=== PATIENT | female | born 1935 | race Caucasian/White ===

== ENCOUNTER 2016-10-09 15:31 | Inpatient (IN) ==
[2016-10-09] MEDS ORDERED: TYLENOL PO PRN (15:52)
[2016-10-09] MEDS ORDERED: NITROSTAT SL PRN ×2 (15:52→16:15)
[2016-10-09] MEDS ORDERED: MORPHINE 4 MG/ML SYRINGE IVP PRN (15:52)
[2016-10-09] MEDS ORDERED: VISTARIL INJ IM PRN (15:52)
[2016-10-09] MEDS ORDERED: ATROPINE SULFATE PFS IVP PRN (15:52)
[2016-10-09 16:00] VITALS: BMI 31.6
[2016-10-09] MEDS ORDERED: NON-FORMULARY MEDICATION (Lansoprazole [Prevacid] 30 MG) PO PRN ×22 (16:15)
[2016-10-09] MEDS ORDERED: ANTIVERT PO PRN (16:15)
[2016-10-09] MEDS ORDERED: XANAX PO PRN (16:15)
[2016-10-09] MEDS ORDERED: DECADRON 4 MG/ML SDV IM STA (16:17)
[2016-10-09 16:30] LABS: BASOPHILS % (AUTO) 1.6 % (0.0-3.0); EOSINOPHILS % (AUTO) 1.2 % (0.0-7.0); LYMPHOCYTES # (AUTO) 0.8 K/uL (0.60-3.4); LYMPHOCYTES % (AUTO) 29.6 (10.0-50.0); MEAN CORPUSCULAR HEMOGLOBIN 31.3 pg (27.0-31.0); MEAN CORPUSCULAR HGB CONC 35.9 (31.8-35.4); MEAN CORPUSCULAR VOLUME 87.1 fl (81.0-99.0); MONOCYTES # (AUTO) 0.2 K/uL (0.4-2.0); MONOCYTES % (AUTO) 9.3 (0-10); NEUTROPHILS # (AUTO) 1.5 K/ul (2.0-6.9); NEUTROPHILS % (AUTO) 58.3; PLATELET COUNT 159 10^3/uL (140-440); RED BLOOD COUNT 4.48 10^6/ul (4.20-5.40); WHITE BLOOD COUNT 2.57 K/ul (4.6-10.2)
[2016-10-09] MEDS ORDERED: PROTONIX PO PRN (16:37)
--- NOTE | 2016-10-09 16:39 | DI ---
EXAM: Chest one view HISTORY: Febrile illness, evaluation COMPARISON: 04/09/2018 TECHNIQUE: Single view of the chest was performed FINDINGS: No airspace consolidation. Mild subsegmental atelectasis left lung base. There is no pl eural effusion or pneumothorax. The heart is normal in size. The mediastinal contour is normal, no ting atherosclerosis. There are no acute abnormalities of the bones. Surgical clips right axillary region. IMPRESSION: Mild subsegmental atelectasis left lung base. Otherwise, no acute cardiopulmonary proc ess.
[2016-10-09 16:44] LABS: ABG BASE EXCESS -3 (-2.0-2.0); ABG HCO3 21.4 (22.0-26.0); ABG PCO2 32.4 mmHg (35-45); ABG PH 7.428 (7.35-7.45); ABG TCO2 22 (22.0-28.0)
[2016-10-09] MEDS: DEXTROSE 5%-1/2NS IV SOLUTION 1,000 ML IV SCH (16:44)
[2016-10-09] MEDS: DOXYCYCLINE HYCLATE PO SCH ×2 (16:45→20:37)
[2016-10-09] MEDS ORDERED: COUMADIN PO ONE (17:00)
[2016-10-09 17:07] LABS: ALANINE AMINOTRANSFERASE 30 U/L (12-78); ALBUMIN 3.6 g/dL (3.4-5.0); ALBUMIN/GLOBULIN RATIO 0.92; ALKALINE PHOSPHATASE 71 U/L (53-141); ANION GAP 15.9; ASPARTATE AMINO TRANSFERASE 40 U/L (15-37); BILIRUBIN,TOTAL 0.51 mg/dL (0.00-1.20); BLOOD UREA NITROGEN 21 mg/dL (7-18); BUN/CREATININE RATIO 17.35; CALCIUM 8.7 mg/dL (8.2-10.2); CARBON DIOXIDE 23 mmol/L (23-31); CHLORIDE 100 mmol/L (98-107); CREATINE KINASE 98 U/L; CREATININE 1.21 mg/dL (0.60-1.30); GLUCOSE 96 mg/dL (82-115); MYOGLOBIN 59 ng/ml; POTASSIUM 3.9 mmol/L (3.5-5.10); SODIUM 135 mmol/L (136-145); TOTAL PROTEIN 7.5 g/dL (5.8-8.1)
[2016-10-09] MEDS: BETAPACE PO SCH (20:37)
[2016-10-09] MEDS: ZETIA PO SCH (20:37)
[2016-10-09 22:42] LABS: BILIRUBIN,URINE Negative (NEGATIVE); KETONES,URINE Negative (NEGATIVE); LEUKOCYTE ESTERASE ,URINE Trace (NEGATIVE); NITRITE,URINE Negative (NEGATIVE); PH,URINE 5.5 (5-9); PROTEIN,URINE Negative (NEGATIVE); URINE, BLOOD Trace-lysed (NEGATIVE)
[2016-10-09 22:43] LABS: ADD URINE MICROSCOPIC YES
[2016-10-10 01:04] LABS: PROTHROMBIN TIME 12.7 SEC (9.3-11.0)
[2016-10-10] MEDS: DEXTROSE 5%-1/2NS IV SOLUTION 1,000 ML IV SCH ×2 (01:18→09:25)
[2016-10-10 01:34] LABS: CREATINE KINASE 85 U/L; MYOGLOBIN 47 ng/ml
[2016-10-10] MEDS: SYNTHROID PO SCH (05:39)
[2016-10-10] MEDS ORDERED: ASPIRIN EC PO SCH (08:00)
[2016-10-10] MEDS ORDERED: DECADRON 4 MG/ML SDV IM STA (08:13)
[2016-10-10] MEDS: SODIUM CHLORIDE 1,000 ML IV SCH ×2 (08:40→23:35)
[2016-10-10] MEDS ORDERED: NON-FORMULARY MEDICATION (Benazepril Hcl [Lotensin] 40 MG) PO SCH ×22 (09:00)
[2016-10-10 09:04] LABS: BASOPHILS % (AUTO) 0.6 % (0.0-3.0); HEMATOCRIT 36.1 % (37.0-47.0); HEMOGLOBIN 12.9 g/dl (12.0-16.0); IMMATURE GRANULOCYTE % (AUTO) 0.3 % (0.0-5.0); LYMPHOCYTES # (AUTO) 0.9 K/uL (0.60-3.4); LYMPHOCYTES % (AUTO) 28.1 (10.0-50.0); MEAN CORPUSCULAR HEMOGLOBIN 30.7 pg (27.0-31.0); MEAN CORPUSCULAR HGB CONC 35.7 (31.8-35.4); MONOCYTES # (AUTO) 0.3 K/uL (0.4-2.0); MONOCYTES % (AUTO) 9.5 (0-10); NEUTROPHILS % (AUTO) 61.5; PLATELET COUNT 161 10^3/uL (140-440); WHITE BLOOD COUNT 3.17 K/ul (4.6-10.2)
[2016-10-10] MEDS: DOXYCYCLINE HYCLATE PO SCH ×2 (09:23→20:07)
[2016-10-10] MEDS: LOTENSIN PO SCH (09:24)
[2016-10-10] MEDS: BETAPACE PO SCH ×2 (09:24→20:06)
[2016-10-10] MEDS: NORVASC PO SCH (09:24)
[2016-10-10 09:28] LABS: ALBUMIN 3.3 g/dL (3.4-5.0); ALBUMIN/GLOBULIN RATIO 0.94; ANION GAP 12.9; BILIRUBIN,TOTAL 0.39 mg/dL (0.00-1.20); BUN/CREATININE RATIO 20.23; CALCIUM 8.3 mg/dL (8.2-10.2); CREATININE 0.84 mg/dL (0.60-1.30); POTASSIUM 3.9 mmol/L (3.5-5.10); TOTAL PROTEIN 6.8 g/dL (5.8-8.1)
--- NOTE | 2016-10-10 10:54 | PCM.PROG ---
Attending Provider: ATTENDING PROVIDER: Dr. RICARDO HENLEY DATE OF SERVICE: 10/10/16 SUBJECTIVE: This 80 year old WHITE/ F was hospitalized 10/09/16. The patient is admitted with febrile illness of four days duration with myalgias, arthralgias, weakness and sweating. The patient is feeling better. She slept well with no complaints of pain during the night. Still feels weak. Appetite is not too good. REVIEW OF SYSTEMS: CONSTITUTIONAL: Weakness and tiredness. No night sweats. No fever or chills. HEENT: Eyes: No visual changes. No eye pain. No eye discharge. ENT: No runny nose. No epistaxis. No sinus pain. No odynophagia. No congestion. RESPIRATORY: No cough, no congestion. No hemoptysis. CARDIOVASCULAR: No angina symptoms. No CHF symptoms. No symptoms of coronary insufficiency. No atypical chest pain for CAD. No palpitations. No shortness of breath. GASTROINTESTINAL: No abdominal pain. No nausea or vomiting. No diarrhea or constipation. No hematemesis. No hematochezia. GENITOURINARY: No urgency. No frequency. No dysuria. No hematuria. No obstructive symptoms. No discharge. No pain. No significant abnormal bleeding. MUSCULOSKELETAL: No arthralgias or myalgias. NEUROLOGICAL: Awake, alert, oriented to time, place and person. No headache. No neck pain. No syncope. No seizures. No dizziness. PSYCHIATRIC: Not anxious. No depression. No suicidal thoughts. No homicidal thoughts. SKIN: No rash. No lesions. No wounds. ENDOCRINE: No unexplained weight loss. No weight gain. HEMATOLOGIC/LYMPHATIC: No anemia. No purpura. No petechiae. No prolonged or excessive bleeding. No palpable lymph nodes. PHYSICAL EXAMINATION: GENERAL: The patient is awake, alert and oriented, lying in bed in no distress. VITAL SIGNS: Temperature 96.6 F, Pulse 57, Respiratory Rate 19, BP 116/67, Pulse Ox 97% HEENT: Head normocephalic, atraumatic. Eyes: Extraocular muscles are intact. Pupils are equal, round and reactive to light and accommodation. Ears: No lesions. Nose appeared normal. Throat: No exudate or erythema. NECK: Supple. No JVD, no carotid bruit. No lymphadenopathy or thyromegaly. LUNGS: Decreased breath sounds. Clear to auscultation. Percussion note normal. Chest symmetrical. HEART: S1, S2, no S3. No murmurs. No cyanosis or clubbing. No ascites. Pulses: Dorsalis pedis and posterior tibial pulses +1 to +2 both sides. ABDOMEN: Soft. Non-tender. Bowel sounds active. No CVA tenderness. No mass felt. EXTREMITIES: No pedal edema. Full range of motion of all extremities, equal. NEUROLOGIC: No focal deficit. Cranial nerves II through XII are grossly intact. No headache, no double vision or headache. SKIN: Not dry. Intact. Turgor-normal. LYMPHATIC: No palpable lymph nodes/no lymphedema. MUSCULOSKELETAL: Normal joints with no swelling. Muscle tone is normal. LAB REVIEW: 10/09/16 16:10 10/09/16 16:10 10/10/16 00:15: PT 12.7 H, INR 1.23, Total Creatine Kinase 85, Myoglobin 47, Troponin I < 0.0100 10/09/16 22:15: Urine Color Yellow, Urine Clarity Clear, Urine pH 5.5, Ur Specific [place] <=1.005, Urine Protein Negative, Urine Glucose (UA) Negative, Urine Ketones Negative, Urine Blood Trace-lysed, Urine Nitrite Negative, Urine Bilirubin Negative, Urine Urobilinogen 0.2, Ur Leukocyte Esterase Trace, Urine Microscopic RBC 2-5, Urine Microscopic WBC 0-2, Ur Squamous Epith Cells 2-5 10/09/16 16:10: WBC 2.57 L, RBC 4.48, Hgb 14.0, Hct 39.0, MCV 87.1, MCH 31.3 H, MCHC 35.9 H, RDW Coeff of [place]a 12.9, Plt Count 159, Immature Gran % (Auto) 0.0, Neut % (Auto) 58.3, Lymph % (Auto) 29.6, [place] % (Auto) 9.3, Eos % (Auto) 1.2, Baso % (Auto) 1.6, Immature Gran # (Auto) 0.0, Neut # 1.5 L, Lymph # 0.8, [place] # 0.2 L, Eos # 0.0, Baso # 0.0, Sodium 135 L, Potassium 3.9, Chloride 100, Carbon Dioxide 23, Anion Gap 15.9, BUN 21 H, Creatinine 1.21, Estimated GFR ( MDRD) 43.00, BUN/Creatinine Ratio 17.35, Glucose 96, Calcium 8.7, Total Bilirubin 0.51, AST 40 H, ALT 30, Alkaline Phosphatase 71, Total Creatine Kinase 98, Myoglobin 59, Troponin I < 0.0100, B-Natriuretic Peptide 45, Total Protein 7.5, Albumin 3.6, Globulin 3.9, Albumin/Globulin Ratio 0.92, TSH 0.880 10/09/16 16:09: Puncture Site Rb, O2 Saturation 92.0 L, ABG pH 7.428, ABG pCO2 32.4 L, ABG pO2 62.0 L, ABG HCO3 21.4 L, ABG Total CO2 22, ABG Base Excess -3 L , FiO2 % 21.0 EKG reveals sinus rhythm with no acute changes. ASSESSMENT: 1. Febrile illness with leukopenia could be viral syndrome 2. Dehydration 3. Generalized malaise 4. Cardiovascular status is stable. 5. History of CAD with stent 6. Hypertension 7. Dyslipidemia PLAN: 1. CBC, CMP daily 2. Encourage the patient to eat 3. Awaiting results of Ehrlichia, Lyme's, et cetera 4. Doxycycline p.o. 5. 1/2 cc Decadron for aches and pains 6. Change IV fluids (NS) to 75 cc/hr Plan and coordination of the patient's care discussed in the presence of Dealer Analyst and nurse. CONDITION: STABLE SCRIBED BY: BENNIE AVITIA Blasting Entryman scribed while in presence of service performed by Dr. RICARDO HENLEY on 10/10/16 ([id number])
--- NOTE | 2016-10-10 12:57 | HP ---
DATE OF SERVICE: 10/09/16 REASON FOR HOSPITALIZATION/HISTORY OF PRESENT ILLNESS: Achy/fever of 102 with no fever, loss of appetite, exhausted, joints hurt and lower back pain. No symptoms of CHF/CAD. REVIEW OF SYSTEMS: CONSTITUTIONAL: Fever and fatigue. HEENT: No sinus drainage, no sore throat. RESPIRATORY: No cough, no congestion. CARDIOVASCULAR: No atypical chest pain for coronary artery disease. No angina , CHF symptoms, palpitations. Shortness of breath. GASTROINTESTINAL: No melena or abdominal pain. No GERD. GENITOURINARY: No hematuria, no prostatism, no polyuria. MALT HOUSE OPERATOR: No blackout, Dizziness, no headache, no double vision. MUSCULOSKELETAL: Osteoarthritis pain, no joint swelling. ENDOCRINE: No weight loss, no weight gain. SKIN: Dry, no rash. No history of tick bite. PSYCHIATRIC: Anxious, no depression, no suicidal thoughts, no homicidal thoughts. SOCIAL HISTORY: Marital Status: . Alcohol Usage: No. Tobacco Usage: No. Family History: Father decreased age 80 CVA and hypertension, mother age 58 CVA, brother 5 and sister 2. SURGICAL HISTORY: Hysterectomy Thyroid Breast cancer right-mastectomy MEDICAL HISTORY: Cancer breast (RT) Coronary artery disease Atrial fibrillation Peripheral arterial disease Vitamin D deficiency Dyslipidemia Hypertension Decreased B12 level Osteoarthritis hip MEDICATIONS: Betapace 80mg twice a day Crestor 10mg PO bedtime Nitrostat 0.4mg SL as directed PRN Antivert 25gram PO three times a day PRN Synthroid 75mch PO daily Zetia 10mg PO bedtime Lotensin 40mg PO daily Amlodipine Besylate 5mg PO daily Xanax 0.25mg PO daily PRN Coumadin 2mg Po daily Prevacid 30mg PO daily PRN ALLERGIES: Vytorin Codeine PHYSICAL EXAMINATION: V/S: Pulse 80, blood pressure 130/78, temperature 98 and pulse ox 96%. GENERAL APPEARANCE: Oriented times three. Pallor positive. No rash. HEENT: Normal. NECK: No JVP, no bruits. No lymphadenopathy. RESPIRATORY: Lungs are clear. CARDIOVASCULAR: S1, S2, no S3, no murmurs. No cyanosis, clubbing. No ascites. GI/ABDOMEN: No tenderness. Bowel sounds are active. EXTREMITIES: edema, pulses +1, equal. MALT HOUSE OPERATOR: Deep tendon reflexes, sensory, motor and gait all normal. RECTAL: Refused. PELVIC: History cancer right breast 4-15 [facility] with ultrasound LABS: INR 1.3 on 2mg daily ASSESSMENT: 1. Febrile illness/ dehydration 2. Arthritis/myalgia/ fatigue 3. Chest twinges 4. Coronary artery disease 5. Atrial Fibrillation 6. History of cancer right breast 1988 7. Peripheral arterial disease 8. Vitamin D deficiency 9. Dyslipidemia 10.Hypertension 11.Osteoarthritis hip 12.Decreased B12 13.CAD 99 PLAN: 1. Admit regular 2. Routine Telemetry orders 3. 1000cc D5 1/2 normal saline 8 hourly 4. U/A and culture and sensitivity/ T4 TSH RICHARD 5. Blood cultures times 2 6. Ehrlichia titers 7. Continue all home medications 8. Discontinue Crestor/ oxygen 2 liters nasal cannula 9. Daily INR/Coumadin 4mg PO today 10.Daily Coumadin 2mg PO 11.ABG today 12. BNP, Sed rate today 13. Doxycycline 100mg PO twice a day and one now 14. Lyme screening 15. 1/2 cc Decadron IM today. TIME SPENT: More than 70 minutes. MTDD
[2016-10-10] MEDS: COUMADIN PO SCH (16:48)
[2016-10-10] MEDS ORDERED: COUMADIN PO SCH (17:00)
[2016-10-10] MEDS: ZETIA PO SCH (20:06)
[2016-10-11 04:42] LABS: BASOPHILS % (AUTO) 0.6 % (0.0-3.0); EOSINOPHILS % (AUTO) 0.2 % (0.0-7.0); HEMATOCRIT 33.2 % (37.0-47.0); HEMOGLOBIN 11.6 g/dl (12.0-16.0); IMMATURE GRANULOCYTE % (AUTO) 0.2 % (0.0-5.0); LYMPHOCYTES # (AUTO) 1.5 K/uL (0.60-3.4); LYMPHOCYTES % (AUTO) 29.9 (10.0-50.0); MEAN CORPUSCULAR HEMOGLOBIN 30.8 pg (27.0-31.0); MEAN CORPUSCULAR HGB CONC 34.9 (31.8-35.4); MEAN CORPUSCULAR VOLUME 88.1 fl (81.0-99.0); MONOCYTES # (AUTO) 0.6 K/uL (0.4-2.0); MONOCYTES % (AUTO) 10.7 (0-10); NEUTROPHILS % (AUTO) 58.4; PLATELET COUNT 175 10^3/uL (140-440); RED BLOOD COUNT 3.77 10^6/ul (4.20-5.40); WHITE BLOOD COUNT 5.15 K/ul (4.6-10.2)
[2016-10-11 04:54] LABS: PROTHROMBIN TIME 18.1 SEC (9.3-11.0)
[2016-10-11 05:02] LABS: ALBUMIN 3.1 g/dL (3.4-5.0); ALBUMIN/GLOBULIN RATIO 0.97; ANION GAP 15.8; BILIRUBIN,TOTAL 0.32 mg/dL (0.00-1.20); BUN/CREATININE RATIO 20.23; CREATININE 0.84 mg/dL (0.60-1.30); POTASSIUM 3.8 mmol/L (3.5-5.10); TOTAL PROTEIN 6.3 g/dL (5.8-8.1)
[2016-10-11] MEDS: SYNTHROID PO SCH (05:38)
[2016-10-11] MEDS ORDERED: DECADRON 4 MG/ML SDV IM STA (08:21)
[2016-10-11] MEDS: DOXYCYCLINE HYCLATE PO SCH ×2 (08:41→20:50)
[2016-10-11] MEDS: NORVASC PO SCH (08:41)
[2016-10-11] MEDS: BETAPACE PO SCH ×2 (08:42→20:50)
[2016-10-11] MEDS: LOTENSIN PO SCH (08:42)
--- NOTE | 2016-10-11 09:40 | PCM.PROG ---
Attending Provider: ATTENDING PROVIDER: Dr. RICARDO HENLEY DATE OF SERVICE: 10/11/16 SUBJECTIVE: This 80 year old WHITE/ F was hospitalized 10/09/16. The patient is hospitalized with febrile illness/dehydration. Her condition has steadily improved. Appetite is not so good so far. No nausea, no vomiting. No abdominal pain. No symptoms of CHF or coronary insufficiency. Telemetry shows no sinus arrhythmia. No evidence of acute myocardial event. REVIEW OF SYSTEMS: CONSTITUTIONAL: No night sweats. No fatigue, malaise, lethargy. No fever or chills. HEENT: Eyes: No visual changes. No eye pain. No eye discharge. ENT: No runny nose. No epistaxis. No sinus pain. No odynophagia. No congestion. RESPIRATORY: No cough, no congestion. No hemoptysis. CARDIOVASCULAR: No angina symptoms. No CHF symptoms. No atypical chest pain for CAD. No palpitations. No shortness of breath. GASTROINTESTINAL: Appetite is not that good. No abdominal pain. No nausea or vomiting. No diarrhea or constipation. No hematemesis. No hematochezia. GENITOURINARY: No urgency. No frequency. No dysuria. No hematuria. No obstructive symptoms. No discharge. No pain. No significant abnormal bleeding. MUSCULOSKELETAL: No musculoskeletal pain; no joint swelling. NEUROLOGICAL: Awake, alert, oriented to time, place and person. No headache. No neck pain. No syncope. No seizures. No dizziness. PSYCHIATRIC: Not anxious. No depression. No suicidal thoughts. No homicidal thoughts. SKIN: No rash. No lesions. No wounds. ENDOCRINE: No unexplained weight loss. No weight gain. HEMATOLOGIC/LYMPHATIC: No anemia. No purpura. No petechiae. No prolonged or excessive bleeding. No palpable lymph nodes. PHYSICAL EXAMINATION: GENERAL: The patient is awake, alert and oriented, lying/sitting in bed in no distress. VITAL SIGNS: Temperature 97.7 F, Pulse 60, Respiratory Rate 18, BP 139/77, Pulse Ox 95% HEENT: Head normocephalic, atraumatic. Eyes: Extraocular muscles are intact. Pupils are equal, round and reactive to light and accommodation. Ears: No lesions. Nose appeared normal. Throat: No exudate or erythema. NECK: Supple. No JVD, no carotid bruit. No lymphadenopathy or thyromegaly. LUNGS: Clear to auscultation. Percussion note normal. Chest symmetrical. HEART: S1, S2, no S3. No murmurs. No cyanosis or clubbing. No ascites. Pulses: Dorsalis pedis and posterior tibial pulses +1 to +2 both sides. ABDOMEN: Soft. Non-tender. Bowel sounds active. No CVA tenderness. No mass felt. EXTREMITIES: No edema. Full range of motion of all extremities, equal. NEUROLOGIC: No focal deficit. Cranial nerves II through XII are grossly intact. No headache, no double vision or headache. SKIN: Not dry. Intact. Turgor-normal. LYMPHATIC: No palpable lymph nodes/no lymphedema. MUSCULOSKELETAL: Normal joints with no swelling. Muscle tone is normal. LAB REVIEW: 10/11/16 04:10 10/11/16 04:10 10/11/16 04:10: WBC 5.15, RBC 3.77 L, Hgb 11.6 L, Hct 33.2 L, MCV 88.1, MCH 30.8 , MCHC 34.9, RDW Coeff of [place] 13.0, Plt Count 175, Immature Gran % (Auto) 0.2, Neut % (Auto) 58.4, Lymph % (Auto) 29.9, [place] % (Auto) 10.7 H, Eos % (Auto) 0.2 , Baso % (Auto) 0.6, Immature Gran # (Auto) 0.0, Neut # 3.0, Lymph # 1.5, [place] # 0.6, Eos # 0.0, Baso # 0.0, PT 18.1 H D, INR 1.76, Sodium 140, Potassium 3.8, Chloride 107, Carbon Dioxide 21 L, Anion Gap 15.8, BUN 17, Creatinine 0.84, Estimated GFR (MDRD) 65.00, BUN/Creatinine Ratio 20.23, Glucose 91, Calcium 8.0 L, Total Bilirubin 0.32, AST 31, ALT 31, Alkaline Phosphatase 60, Total Protein 6.3, Albumin 3.1 L, Globulin 3.2, Albumin/Globulin Ratio 0.97 10/10/16 08:51: WBC 3.17 L, RBC 4.20, Hgb 12.9, Hct 36.1 L, MCV 86.0, MCH 30.7, MCHC 35.7 H, RDW Coeff of [place] 12.6, Plt Count 161, Immature Gran % (Auto) 0.3, Neut % (Auto) 61.5, Lymph % (Auto) 28.1, [place] % (Auto) 9.5, Eos % (Auto) 0.0, Baso % (Auto) 0.6, Immature Gran # (Auto) 0.0, Neut # 2.0, Lymph # 0.9, [place] # 0.3 L, Eos # 0.0, Baso # 0.0, Sodium 135 L, Potassium 3.9, Chloride 105, Carbon Dioxide 21 L, Anion Gap 12.9, BUN 17, Creatinine 0.84, Estimated GFR (MDRD) 65.00, BUN/Creatinine Ratio 20.23, Glucose 120 H, Calcium 8.3, Total Bilirubin 0.39, AST 31, ALT 31, Alkaline Phosphatase 62, Total Protein 6.8, Albumin 3.3 L , Globulin 3.5, Albumin/Globulin Ratio 0.94 10/09/16 16:10: Thyroxine (T4) 11.9 ASSESSMENT: 1. Febrile illness with leukopenia, could be viral syndrome resolved with dehydration 2. Dehydration 3. Generalized malaise 4. Cardiovascular status is stable. 5. History of CAD with stent 6. Hypertension 7. Dyslipidemia PLAN: 1. Discontinue IV fluids 2. Up and about 3. 1 cc Decadron 4. Carotid scan 5. D/C IV fluids 6. Encouraged to be up and about Plan and coordination of the patient's care discussed in the presence of Circuit Designer and nurse. CONDITION: Stable SCRIBED BY: BENNIE AVITIA, Fashion Editor scribed while in presence of service performed by Dr. RICARDO HENLEY on 10/11/16 ([id number])
--- NOTE | 2016-10-11 14:13 | US ---
EXAM: Bilateral carotid artery Doppler History: Weakness and dizziness. Technique: Multiple sonographic images through the bilateral internal carotid arteries were obtaine d. Color duplex Doppler was used to interrogate vascular flow. Findings: The right ICA peak systolic velocity is within normal limits measuring 60 cm/sec. The right ICA/cca PSV ratio is normal at 1.3. The right vertebral artery is patent and demonstrates antegrade flow. Sanchez scale images demonstrate mild to moderate plaque buildup within the right internal carotid art racheal. The left ICA peak systolic velocity is within normal limits measuring 90 cm/sec. The left ICA/cca P SV ratio is normal at 1.3. The left vertebral artery is patent and demonstrates antegrade flow. Gr ay scale images demonstrate mild to moderate plaque buildup within the left internal carotid artery Impression: No significant hemodynamic stenosis of the bilateral internal carotid arteries.
[2016-10-11] MEDS: COUMADIN PO SCH (16:25)
[2016-10-11 19:25] LABS: IGG P18 AB Absent (.); IGG P23 AB Absent (.); IGG P28 AB Absent (.); IGG P30 AB Absent (.); IGG P39 AB Absent (.); IGG P41 AB Present (.); IGG P45 AB Absent (.); IGG P58 AB Present (.); IGG P66 AB Absent (.); IGG P93 AB Absent (.); IGM P39 AB Present (.); IGM P41 AB Present (.)
[2016-10-11] MEDS: ZETIA PO SCH (20:50)
[2016-10-12 05:16] LABS: BASOPHILS % (AUTO) 0.3 % (0.0-3.0); HEMATOCRIT 32.7 % (37.0-47.0); HEMOGLOBIN 11.7 g/dl (12.0-16.0); IMMATURE GRANULOCYTE % (AUTO) 0.3 % (0.0-5.0); LYMPHOCYTES # (AUTO) 1.5 K/uL (0.60-3.4); LYMPHOCYTES % (AUTO) 24.2 (10.0-50.0); MEAN CORPUSCULAR HEMOGLOBIN 30.7 pg (27.0-31.0); MEAN CORPUSCULAR HGB CONC 35.8 (31.8-35.4); MEAN CORPUSCULAR VOLUME 85.8 fl (81.0-99.0); MONOCYTES # (AUTO) 0.6 K/uL (0.4-2.0); MONOCYTES % (AUTO) 9.3 (0-10); NEUTROPHILS # (AUTO) 4.1 K/ul (2.0-6.9); NEUTROPHILS % (AUTO) 65.9; PLATELET COUNT 192 10^3/uL (140-440); RED BLOOD COUNT 3.81 10^6/ul (4.20-5.40); WHITE BLOOD COUNT 6.23 K/ul (4.6-10.2)
[2016-10-12 05:30] LABS: PROTHROMBIN TIME 20.7 SEC (9.3-11.0)
[2016-10-12 05:34] LABS: ALBUMIN 3.2 g/dL (3.4-5.0); ALBUMIN/GLOBULIN RATIO 1.1; BILIRUBIN,TOTAL 0.36 mg/dL (0.00-1.20); CALCIUM 8.3 mg/dL (8.2-10.2); CREATININE 0.8 mg/dL (0.60-1.30); TOTAL PROTEIN 6.1 g/dL (5.8-8.1)
[2016-10-12] MEDS: SYNTHROID PO SCH (06:13)
[2016-10-12] MEDS: DOXYCYCLINE HYCLATE PO SCH ×2 (08:57→20:50)
[2016-10-12] MEDS: LOTENSIN PO SCH (08:57)
[2016-10-12] MEDS: NORVASC PO SCH (08:57)
[2016-10-12] MEDS: BETAPACE PO SCH ×2 (08:57→20:50)
[2016-10-12 09:49] LABS: LYME IGG WB INTERP Negative (.); LYME IGM WB INTERP Positive (.)
[2016-10-12] MEDS: COUMADIN PO SCH (17:00)
[2016-10-12] MEDS: ZETIA PO SCH (20:49)
[2016-10-13 04:57] LABS: BASOPHILS # (AUTO) 0.1 K/uL (0-0.2); EOSINOPHILS # (AUTO) 0.1 K/ul (0.0-0.7); EOSINOPHILS % (AUTO) 1.5 % (0.0-7.0); HEMATOCRIT 34.3 % (37.0-47.0); IMMATURE GRANULOCYTE % (AUTO) 0.3 % (0.0-5.0); LYMPHOCYTES # (AUTO) 2.8 K/uL (0.60-3.4); LYMPHOCYTES % (AUTO) 47.1 (10.0-50.0); MEAN CORPUSCULAR HEMOGLOBIN 30.3 pg (27.0-31.0); MEAN CORPUSCULAR VOLUME 86.6 fl (81.0-99.0); MONOCYTES # (AUTO) 0.7 K/uL (0.4-2.0); MONOCYTES % (AUTO) 10.9 (0-10); NEUTROPHILS # (AUTO) 2.3 K/ul (2.0-6.9); NEUTROPHILS % (AUTO) 39.2; PLATELET COUNT 224 10^3/uL (140-440); RED BLOOD COUNT 3.96 10^6/ul (4.20-5.40); WHITE BLOOD COUNT 5.94 K/ul (4.6-10.2)
[2016-10-13 05:12] LABS: PROTHROMBIN TIME 20.3 SEC (9.3-11.0)
[2016-10-13 05:18] LABS: ALBUMIN 2.9 g/dL (3.4-5.0); ALBUMIN/GLOBULIN RATIO 0.97; ANION GAP 13.1; BILIRUBIN,TOTAL 0.38 mg/dL (0.00-1.20); CALCIUM 8.1 mg/dL (8.2-10.2); POTASSIUM 4.1 mmol/L (3.5-5.10); TOTAL PROTEIN 5.9 g/dL (5.8-8.1)
[2016-10-13 05:19] LABS: BUN/CREATININE RATIO 24.09; CREATININE 0.83 mg/dL (0.60-1.30)
[2016-10-13] MEDS: SYNTHROID PO SCH (05:39)
[2016-10-13] MEDS ORDERED: DECADRON 4 MG/ML SDV IM STA (08:30)
[2016-10-13] MEDS: DOXYCYCLINE HYCLATE PO SCH ×2 (08:56→20:08)
[2016-10-13] MEDS: BETAPACE PO SCH ×2 (08:57→20:08)
[2016-10-13] MEDS: NORVASC PO SCH (08:57)
[2016-10-13] MEDS: LOTENSIN PO SCH (08:57)
[2016-10-13] MEDS: COUMADIN PO SCH (17:21)
[2016-10-13] MEDS: ZETIA PO SCH (20:08)
[2016-10-14 04:30] LABS: BASOPHILS % (AUTO) 0.2 % (0.0-3.0); EOSINOPHILS % (AUTO) 0.1 % (0.0-7.0); HEMATOCRIT 35.5 % (37.0-47.0); HEMOGLOBIN 12.6 g/dl (12.0-16.0); IMMATURE GRANULOCYTE % (AUTO) 0.7 % (0.0-5.0); LYMPHOCYTES # (AUTO) 1.8 K/uL (0.60-3.4); MEAN CORPUSCULAR HEMOGLOBIN 30.7 pg (27.0-31.0); MEAN CORPUSCULAR HGB CONC 35.5 (31.8-35.4); MEAN CORPUSCULAR VOLUME 86.4 fl (81.0-99.0); MONOCYTES # (AUTO) 0.6 K/uL (0.4-2.0); MONOCYTES % (AUTO) 5.7 (0-10); NEUTROPHILS # (AUTO) 8.2 K/ul (2.0-6.9); NEUTROPHILS % (AUTO) 76.3; PLATELET COUNT 278 10^3/uL (140-440); RED BLOOD COUNT 4.11 10^6/ul (4.20-5.40); WHITE BLOOD COUNT 10.74 K/ul (4.6-10.2)
[2016-10-14 04:51] LABS: PROTHROMBIN TIME 21.2 SEC (9.3-11.0)
[2016-10-14 04:55] LABS: ALBUMIN 3.3 g/dL (3.4-5.0); ALBUMIN/GLOBULIN RATIO 0.94; ANION GAP 15.3; BILIRUBIN,TOTAL 0.36 mg/dL (0.00-1.20); CALCIUM 8.6 mg/dL (8.2-10.2); CREATININE 0.96 mg/dL (0.60-1.30); POTASSIUM 4.3 mmol/L (3.5-5.10); TOTAL PROTEIN 6.8 g/dL (5.8-8.1)
[2016-10-14] MEDS: SYNTHROID PO SCH (05:43)
[2016-10-14] MEDS: BETAPACE PO SCH ×2 (08:39→20:04)
[2016-10-14] MEDS: LOTENSIN PO SCH (08:39)
[2016-10-14] MEDS: NORVASC PO SCH (08:39)
[2016-10-14] MEDS: DOXYCYCLINE HYCLATE PO SCH ×2 (08:39→20:03)
--- NOTE | 2016-10-14 10:38 | PCM.PROG ---
Attending Provider: ATTENDING PROVIDER: Dr. RICARDO HENLEY DATE OF SERVICE: 10/14/16 SUBJECTIVE: This 80 year old WHITE/ F was hospitalized 10/09/16. The patient was hospitalized with dehydration, febrile illness with mild myalgias and arthralgias. No rash. No lymphadenopathy. No fever, no chills. No headache. REVIEW OF SYSTEMS: CONSTITUTIONAL: No night sweats. No fatigue, malaise, lethargy. No fever or chills. HEENT: Eyes: No visual changes. No eye pain. No eye discharge. ENT: No runny nose. No epistaxis. No sinus pain. No odynophagia. No congestion. RESPIRATORY: No cough, no congestion. No hemoptysis. CARDIOVASCULAR: No angina symptoms. No CHF symptoms. No atypical chest pain for CAD. No palpitations. No shortness of breath. GASTROINTESTINAL: No abdominal pain. No nausea or vomiting. No diarrhea or constipation. No hematemesis. No hematochezia. GENITOURINARY: No urgency. No frequency. No dysuria. No hematuria. No obstructive symptoms. No discharge. No pain. No significant abnormal bleeding. MUSCULOSKELETAL: No musculoskeletal pain; no joint swelling. NEUROLOGICAL: Awake, alert, oriented to time, place and person. No headache. No neck pain. No syncope. No seizures. No dizziness. PSYCHIATRIC: Not anxious. No depression. No suicidal thoughts. No homicidal thoughts. SKIN: No rash. No lesions. No wounds. ENDOCRINE: No unexplained weight loss. No weight gain. HEMATOLOGIC/LYMPHATIC: No anemia. No purpura. No petechiae. No prolonged or excessive bleeding. No palpable lymph nodes. PHYSICAL EXAMINATION: GENERAL: The patient is awake, alert and oriented, lying in bed in no distress. VITAL SIGNS: Temperature 96.1 F, Pulse 82, Respiratory Rate 18, BP 139/76, Pulse Ox 97% HEENT: Head normocephalic, atraumatic. Eyes: Extraocular muscles are intact. Pupils are equal, round and reactive to light and accommodation. Ears: No lesions. Nose appeared normal. Throat: No exudate or erythema. NECK: Supple. No JVD, no carotid bruit. No lymphadenopathy or thyromegaly. LUNGS: Decreased breath sounds. Clear to auscultation. Percussion note normal. Chest symmetrical. HEART: S1, S2, no S3. No murmurs. No cyanosis or clubbing. No ascites. Pulses: Dorsalis pedis and posterior tibial pulses +1 to +2 both sides. ABDOMEN: Soft. Non-tender. Bowel sounds active. No CVA tenderness. No mass felt. EXTREMITIES: No edema. Full range of motion of all extremities, equal. NEUROLOGIC: No focal deficit. Cranial nerves II through XII are grossly intact. No headache, no double vision or headache. SKIN: Not dry. Intact. Turgor-normal. LYMPHATIC: No palpable lymph nodes/no lymphedema. MUSCULOSKELETAL: Normal joints with no swelling. Muscle tone is normal. LAB REVIEW: 10/14/16 04:28 10/14/16 04:28 10/14/16 04:28: WBC 10.74 H, RBC 4.11 L, Hgb 12.6, Hct 35.5 L, MCV 86.4, MCH 30.7, MCHC 35.5 H, RDW Coeff of [place]a 12.6, Plt Count 278, Immature Gran % (Auto) 0.7, Neut % (Auto) 76.3, Lymph % (Auto) 17.0, [place] % (Auto) 5.7, Eos % (Auto) 0.1, Baso % (Auto) 0.2, Immature Gran # (Auto) 0.1, Neut # 8.2 H, Lymph # 1.8, [place] # 0.6, Eos # 0.0, Baso # 0.0, PT 21.2 H, INR 2.06, Sodium 138, Potassium 4.3, Chloride 103, Carbon Dioxide 24, Anion Gap 15.3, BUN 24 H, Creatinine 0.96 , Estimated GFR (MDRD) 56.00, BUN/Creatinine Ratio 25.00, Glucose 100, Calcium 8.6, Total Bilirubin 0.36, AST 23, ALT 37, Alkaline Phosphatase 75, Total Protein 6.8, Albumin 3.3 L, Globulin 3.5, Albumin/Globulin Ratio 0.94 ASSESSMENT: 1. Fatigue seems to be resolving. 2. No fever for 5 to 6 days, blood cultures negative. Lyme screening seems equivocal so will ask for more clarification from lab. 3. Cardiovascular status is stable. 4. History of CAD with stent 5. Hypertension 6. Dyslipidemia PLAN: 1. Will do 2D and M-Mode echocardiogram this morning 2. Will do Echocardiogram 2D M-Mode 3. Possible discharge home today 4. Continue Doxycycline times 5 more days Plan and coordination of the patient's care discussed in the presence of Motor Vehicle Escort Driver and nurse. CONDITION: Stable SCRIBED BY: Priyanka BRUNNERist scribed while in presence of service performed by Dr. RICARDO HENLEY on 10/14/16 ([id number])
[2016-10-14 14:44] LABS: ERYTHROCYTE SEDIMENTATION RATE 32 mm/hr (0-20); ESR INTERNAL QC INTERNAL QC VALID
[2016-10-14] MEDS: COUMADIN PO SCH (16:26)
[2016-10-14] MEDS: ZETIA PO SCH (20:03)
[2016-10-15 04:51] LABS: BASOPHILS # (AUTO) 0.1 K/uL (0-0.2); BASOPHILS % (AUTO) 0.8 % (0.0-3.0); EOSINOPHILS # (AUTO) 0.1 K/ul (0.0-0.7); EOSINOPHILS % (AUTO) 1.4 % (0.0-7.0); HEMATOCRIT 34.6 % (37.0-47.0); HEMOGLOBIN 12.2 g/dl (12.0-16.0); IMMATURE GRANULOCYTE % (AUTO) 1.3 % (0.0-5.0); LYMPHOCYTES # (AUTO) 3.9 K/uL (0.60-3.4); LYMPHOCYTES % (AUTO) 44.7 (10.0-50.0); MEAN CORPUSCULAR HEMOGLOBIN 30.4 pg (27.0-31.0); MEAN CORPUSCULAR HGB CONC 35.3 (31.8-35.4); MEAN CORPUSCULAR VOLUME 86.3 fl (81.0-99.0); MONOCYTES # (AUTO) 0.8 K/uL (0.4-2.0); MONOCYTES % (AUTO) 8.6 (0-10); NEUTROPHILS # (AUTO) 3.8 K/ul (2.0-6.9); NEUTROPHILS % (AUTO) 43.2; PLATELET COUNT 317 10^3/uL (140-440); RED BLOOD COUNT 4.01 10^6/ul (4.20-5.40); WHITE BLOOD COUNT 8.76 K/ul (4.6-10.2)
[2016-10-15 05:20] LABS: PROTHROMBIN TIME 21.5 SEC (9.3-11.0)
[2016-10-15] MEDS: SYNTHROID PO SCH (05:40)
[2016-10-15 05:41] LABS: ALBUMIN 3.1 g/dL (3.4-5.0); ALBUMIN/GLOBULIN RATIO 1.03; ANION GAP 15.2; BILIRUBIN,TOTAL 0.44 mg/dL (0.00-1.20); BUN/CREATININE RATIO 25.58; CALCIUM 8.1 mg/dL (8.2-10.2); CREATININE 0.86 mg/dL (0.60-1.30); POTASSIUM 4.2 mmol/L (3.5-5.10); TOTAL PROTEIN 6.1 g/dL (5.8-8.1)
--- NOTE | 2016-10-15 08:27 | PN ---
DATE OF SERVICE: 10/12/16 SUBJECTIVE: The patient is an 80 year old white female hospitalized with fibril illness, severe dehydration and generalized arthralgia and myalgia. The patient's condition has steadily improved and she is feeling a lot better. No arthralgias or myalgias. Appetite has been improving. REVIEW OF SYSTEMS: CONSTITUTIONAL: No night sweats. No fatigue, malaise, lethargy. No fever or chills. HEENT: Eyes: No visual changes. No eye pain. No eye discharge. ENT: No runny nose. No epistaxis. No sinus pain. No sore throat. No odynophagia. No congestion. RESPIRATORY: No cough, no congestion. No hemoptysis. CARDIOVASCULAR: No angina symptoms. No CHF symptoms. No atypical chest pain for CAD. No palpitations. No shortness of breath. GASTROINTESTINAL: No abdominal pain. No nausea or vomiting. No diarrhea or constipation. No hematemesis. No hematochezia. GENITOURINARY: No urgency. No frequency. No dysuria. No hematuria. No obstructive symptoms. No discharge. No pain. No significant abnormal bleeding. MUSCULOSKELETAL: No musculoskeletal pain; no joint swelling. NEUROLOGICAL: No headache. No neck pain. No syncope. No seizures. No dizziness. PSYCHIATRIC: Not anxious. No depression. No suicidal thoughts. No homicidal thoughts. SKIN: No rash. No lesions. No wounds. ENDOCRINE: No unexplained weight loss. No weight gain. HEMATOLOGIC/LYMPHATIC: No anemia. No purpura. No petechiae. No prolonged or excessive bleeding. No palpable lymph nodes. PHYSICAL EXAMINATION: GENERAL: The patient is oriented to time, place and person. VITAL SIGNS: Temperature 97.9, pulse 56, respiratory rate 16, blood pressure 142/69 and pulse ox 96%. HEENT: Head normocephalic, atraumatic. Eyes: Extraocular muscles are intact. Pupils are equal, round and reactive to light and accommodation. Ears: No lesions. Nose appeared normal. Throat: No exudate or erythema. NECK: Supple. No JVD, no carotid bruit. No lymphadenopathy or thyromegaly. LUNGS: Decreased breath sounds but clear to auscultation. Percussion note normal. Chest symmetrical. HEART: S1, S2, no S3. No murmurs. No cyanosis or clubbing. No ascites. Pulses: Dorsalis pedis and posterior tibial pulses +1 to +2 both sides. ABDOMEN: Soft. Nontender. Bowel sounds active. No CVA tenderness. No mass felt. EXTREMITIES: No edema. Full range of motion of all extremities, equal. NEUROLOGIC: No focal deficit. Cranial nerves II through XII are grossly intact. No headache, no double vision or headache. SKIN: Not dry. Intact. Turgor - normal. LYMPHATIC: No palpable lymph nodes/no lymphedema. MUSCULOSKELETAL: Normal joints with no swelling. Muscle tone is normal. LABS: Hgb 11.7, hct 32, WBC 6,200 normal differential, creatinine 0.8, BUN 20, potassium 4, INR 2.01, BNP 45. ASSESSMENT: 1. Febrile Illness 2. Dehydration 3. Fatigue 4. Arthralgia all have subsided PLAN: 1. Continue Doxycycline 2. So far Lyme test is negative and Ehrlichia is pending 3. The patient's cardiovascular status is stable with history of coronary artery disease and will be echocardiogram. CONDITION: Stable TIME SPENT: More than 30 minutes. Plan and coordination of the patient's care discussed in the presence of nurse. RYLIE
[2016-10-15] MEDS: LOTENSIN PO SCH (08:36)
[2016-10-15] MEDS: NORVASC PO SCH (08:36)
[2016-10-15] MEDS: BETAPACE PO SCH (08:36)
[2016-10-15] MEDS: DOXYCYCLINE HYCLATE PO SCH (08:36)
--- NOTE | 2016-10-15 10:07 | PCM.PROG ---
Attending Provider: ATTENDING PROVIDER: Dr. RICARDO HENLEY DATE OF SERVICE: 10/15/16 SUBJECTIVE: This 80 year old WHITE/ F was hospitalized 10/09/16. The patient is seen with Magdalena. Nurse Practitioner. The patient is alert, lying in bed ready to go home today. The patient is still waiting on appointment with Dr. Zimmerman. The patient has had no fever. She has a good appetite. REVIEW OF SYSTEMS: CONSTITUTIONAL: Night sweats. Fatigue. No fever or chills. HEENT: Eyes: No visual changes. No eye pain. No eye discharge. ENT: No runny nose. No epistaxis. No sinus pain. No odynophagia. No congestion. RESPIRATORY: No cough, no congestion. No hemoptysis. CARDIOVASCULAR: No angina symptoms. No CHF symptoms. No atypical chest pain for CAD. No palpitations. No shortness of breath. GASTROINTESTINAL: No abdominal pain. No nausea or vomiting. No diarrhea or constipation. No hematemesis. No hematochezia. GENITOURINARY: No urgency. No frequency. No dysuria. No hematuria. No obstructive symptoms. No discharge. No pain. No significant abnormal bleeding. MUSCULOSKELETAL: Achy. NEUROLOGICAL: Awake, alert, oriented to time, place and person. No headache. No neck pain. No syncope. No seizures. No dizziness. PSYCHIATRIC: Not anxious. No depression. No suicidal thoughts. No homicidal thoughts. SKIN: No rash. No lesions. No wounds. ENDOCRINE: No unexplained weight loss. No weight gain. HEMATOLOGIC/LYMPHATIC: No anemia. No purpura. No petechiae. No prolonged or excessive bleeding. No palpable lymph nodes. PHYSICAL EXAMINATION: GENERAL: The patient is awake, alert and oriented, lying in bed in no distress. VITAL SIGNS: Temperature 97.8 F, Pulse 60, Respiratory Rate 18, BP 133/79, Pulse Ox 97% HEENT: Head normocephalic, atraumatic. Eyes: Extraocular muscles are intact. Pupils are equal, round and reactive to light and accommodation. Ears: No lesions. Nose appeared normal. Throat: No exudate or erythema. NECK: Supple. No JVD, no carotid bruit. No lymphadenopathy or thyromegaly. LUNGS: Clear to auscultation. Percussion note normal. Chest symmetrical. HEART: S1, S2, no S3. No murmurs. No cyanosis or clubbing. No ascites. Pulses: Dorsalis pedis and posterior tibial pulses +1 to +2 both sides. ABDOMEN: Soft. Non-tender. Bowel sounds active. No CVA tenderness. No mass felt. EXTREMITIES: No edema. Full range of motion of all extremities, equal. NEUROLOGIC: No focal deficit. Cranial nerves II through XII are grossly intact. No headache, no double vision or headache. SKIN: Not dry. Intact. Turgor-normal. LYMPHATIC: No palpable lymph nodes/no lymphedema. MUSCULOSKELETAL: Normal joints with no swelling. Muscle tone is normal. LAB REVIEW: 10/15/16 05:09 10/15/16 05:09 10/15/16 05:09: WBC 8.76, RBC 4.01 L, Hgb 12.2, Hct 34.6 L, MCV 86.3, MCH 30.4, MCHC 35.3, RDW Coeff of [place] 12.8, Plt Count 317, Immature Gran % (Auto) 1.3, Neut % (Auto) 43.2, Lymph % (Auto) 44.7, [place] % (Auto) 8.6, Eos % (Auto) 1.4, Baso % (Auto) 0.8, Immature Gran # (Auto) 0.1, Neut # 3.8, Lymph # 3.9 H, [place] # 0.8, Eos # 0.1, Baso # 0.1, PT 21.5 H, INR 2.09, Sodium 139, Potassium 4.2, Chloride 103, Carbon Dioxide 25, Anion Gap 15.2, BUN 22 H, Creatinine 0.86, Estimated GFR (MDRD) 63.00, BUN/Creatinine Ratio 25.58, Glucose 75 L, Calcium 8.1 L, Total Bilirubin 0.44, AST 20, ALT 34, Alkaline Phosphatase 64, Total Protein 6.1, Albumin 3.1 L, Globulin 3.0, Albumin/Globulin Ratio 1.03 10/14/16 13:38: ESR 32 H 10/14/16 04:05: C-Reactive Prot, Quant 0.6 10/13/16 08:56: CMV IgG Ab Index > 10.00 H, CMV IgM Ab Index 35.4 H 10/13/16 04:40: EBV EA IgG Ab Interp 25.8 H ASSESSMENT: 1. Fatigue seems to be resolving. 2. 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 Cardiovascular status is stable. 4. History of CAD with stent 5. Hypertension 6. Dyslipidemia PLAN: 1. Discharge home 2. Will continue 28 day course of Doxycycline to treat Lyme's 3. Still waiting for appointment with Dr. Zimmerman will schedule 4. Followup with us in one week Plan and coordination of the patient's care discussed in the presence of Recreation Superintendent and nurse. CONDITION: Stable SCRIBED BY: BENNIE AVITIA Tooth Clerk scribed while in presence of service performed by Dr. RICARDO HENLEY/MAGDALENA GAMEZ APRN on 10/15/16 (0800)
[2016-10-15 10:14] VITALS: BP 132/67; TEMP 96.8
--- NOTE | 2016-10-15 11:34 | PN ---
DATE OF SERVICE: 10/13/16 SUBJECTIVE: The patient is an 80 year old white female hospitalized with dehydration, febrile illness, fatigue and tired feeling. The patient's condition has steadily improved, appetite has improved and her strength has improved. The arthralgia and myalgia are much less. So far all the labs including blood cultures, Lyme screening test all of them are negative. REVIEW OF SYSTEMS: CONSTITUTIONAL: No night sweats. Mild fatigue. No malaise, lethargy. No fever or chills. Some arthralgia and myalgia are much less then the used to be. HEENT: Eyes: No visual changes. No eye pain. No eye discharge. ENT: No runny nose. No epistaxis. No sinus pain. No sore throat. No odynophagia. No congestion. RESPIRATORY: No cough, no congestion. No hemoptysis. CARDIOVASCULAR: No angina symptoms. No CHF symptoms. No atypical chest pain for CAD. No palpitations. No shortness of breath. No PND. No Orthopnea. GASTROINTESTINAL: No abdominal pain. No nausea or vomiting. No diarrhea or constipation. No hematemesis. No hematochezia.Appetite has improved. GENITOURINARY: No urgency. No frequency. No dysuria. No hematuria. No obstructive symptoms. No discharge. No pain. No significant abnormal bleeding. MUSCULOSKELETAL: No musculoskeletal pain; no joint swelling. NEUROLOGICAL: No headache. No neck pain. No syncope. No seizures. No dizziness. PSYCHIATRIC: Not anxious. No depression. No suicidal thoughts. No homicidal thoughts. SKIN: No rash. No lesions. No wounds. ENDOCRINE: No unexplained weight loss. No weight gain. HEMATOLOGIC/LYMPHATIC: No anemia. No purpura. No petechiae. No prolonged or excessive bleeding. No palpable lymph nodes. PHYSICAL EXAMINATION: GENERAL: The patient is oriented to time, place and person. VITAL SIGNS: Temperature 98.2, pulse 54, respiratory rate 18, blood pressure 140/80 and pulse ox 95%. HEENT: Head normocephalic, atraumatic. Eyes: Extraocular muscles are intact. Pupils are equal, round and reactive to light and accommodation. Ears: No lesions. Nose appeared normal. Throat: No exudate or erythema. NECK: Supple. No JVD, no carotid bruit. No lymphadenopathy or thyromegaly. LUNGS:Decreased breath sounds but clear to auscultation. Percussion note normal. Chest symmetrical. HEART: S1, S2, no S3. No murmurs. No cyanosis or clubbing. No ascites. Pulses: Dorsalis pedis and posterior tibial pulses +1 to +2 both sides. ABDOMEN: Soft. Nontender. Bowel sounds active. No CVA tenderness. No mass felt. EXTREMITIES: No edema. Full range of motion of all extremities, equal. NEUROLOGIC: No focal deficit. Cranial nerves II through XII are grossly intact. No headache, no double vision or headache. SKIN: Not dry. Intact. Turgor - normal. LYMPHATIC: No palpable lymph nodes/no lymphedema. MUSCULOSKELETAL: Normal joints with no swelling. Muscle tone is normal. LABS: hgb 12, hct 34, WBC 5,900 normal differential, creatinine 0.8, BUN 20 and potassium 4.1, INR 1.97 ASSESSMENT: 1. Febrile illness with arthralgia myalgia seems to have resolved. The patient doesn't have any headache or visual problems. 2. Coronary artery disease, with stent 3. Hypertension 4. Dyslipidemia PLAN: 1. 1 cc Decadron IM 2. CMV and Javier-Flores virus 3. Echocardiogram tomorrow CONDITION: Stable TIME SPENT: More than 30 minutes. Plan and coordination of the patient's care discussed in the presence of nurse. RYLIE
--- NOTE | 2016-10-15 12:35 | ECHO2D ---
Date of Exam: 10/15/16 Ordering Physician: RICARDO HENLEY Reason for Echo: FATIGUE M-Mode Normal Adult Results LV Dimensions Normal Adult Results AoV Opening excursions >1.6 >1.6 LVEDD-base- 3.5-5.8 3.9 Ao root dimensions 2.0-3.7 3.3 LVESD-base- 3.1-4.6 L. Atrium dimensions 1.9-3.8 3.9 Post. Wall thickness 0.8-1.1 1.2 IV septum (thickness) 0.7-1.2 1.2 Post. Wall excursion 0.72-1.3 NORMAL Septal motion NORMAL Systolic motion R. Ventricular cavity 1.5-2.0 NORMAL LVEF 60% 72% Paradoxical septal wall motion NORMAL 2-D : 2-D M Mode Echocardiogram was performed using apical four chamber and left parasternal long and short axis views. Mitral, tricuspid and aortic valves appear to be normal. Contractility of the left ventricle seems to be normal, so is the cavity size. Left atrial cavity size and aortic root appear to be normal. There is no pericardial effusion. There is no thrombus noted in the left ventricular or left aortic cavity. No mitral valve prolapse noted. M-MODE: MV: NORMAL AV: NORMAL TV: NORMAL PV: CHAMBER SIZE: NORMAL WALL MOTION: NORMAL PERICARDIUM: NORMAL INTERPRETATION: 1. BORDERLINE LEFT VENTRICULAR HYPERTROPHY 2. NORMAL LEFT VENTRICULAR CONTRACTILITY 3. NORMAL VALVES MTDD
--- NOTE | 2016-10-23 12:52 | DS ---
DATE OF SERVICE: 10/15/16 FINAL DIAGNOSIS: 1. Positive serum lyme assay, acute exposure (10/09/16) 2. Dehydration 3. Malaise, Generalized 4. Thyroid disease 5. CAD 6. Atrial fibrillation by history 7. Dyslipidemia 8. Hypertension 9. Peripheral arterial disease 10.Vitamin D and B12 Deficiency 11.Osteoarthritis, hip 12.Hysterectomy 13.Breast Cancer status post right mastectomy 14.Thyroidectomy 15.Former smoker LAST VITAL: Temperature 98.2, pulse 60, respiratory rate 20, blood pressure 122/73 and pulse ox 98%. DISCHARGE INSTRUCTIONS: Discharge home today. Return to see DR. Soria in one week. Resume home medication as per list provided by the nursing staff. Will be notified of scheduled appointment with Dr. Abelardo Zimmerman. MEDICATIONS AT DISCHARGE: Xanax 0.25mg PO daily PRN Norvasc 5mg PO daily Lotensin 40mg PO daily Doxycycline Hyclate 100mg PO Q12 hours Zetia 10mg PO bedtime Prevacid 30mg PO daily PRN Synthroid 75mcg PO QDAC Antivert 25mg PO three times a day PRN Morphine 4mg/NH syringe 2-4mg ICP Q 1-2 hours PRN Nitrostat 0.4mg SL Q 5 minutes x3 doses PRN Crestor 10mg PO bedtime Betapace 80mg PO twice a day Coumadin 2mg PO QPM ALLERGIES: Codeine Ezetimibe Simvastatin NEW PRESCRIPTIONS: Doxycycline 100mg take one tablet by mouth every 12 hours for 22 days DIET INSTRUCTIONS: Regular as tolerated Healthy heart ACTIVITY: Get plenty of rest at home. Gradually increase activity level according to toleration. SMOKING: Former Smoker No Tobacco use now DISEASE SPECIFIC EDUCATION: Lyme Disease Home medications New prescriptions Follow up HOSPITAL COURSE: The patient is an 80 year old white female was hospitalized after being seen in the office with fever, generalized aches and pain and weakness. The patient did not have any symptoms of upper respiratory tract infection and no urinary tract infection. The patient had not given any history of tick bite but the patient was started on Doxycycline 100mg twice a day from day one, 10/09/16 and was put on IV fluids, intermittent steroid. IM Decadron was given. The patient's condition improved within 2-3 days she was afebrile within 24 hours. Blood cultures and urine cultures were all negative. The recheck came back negative. Lyme was positive. IgM all four bands. The patient had echocardiogram done with normal LV contractility, no pericardial effusion and no evidence of myocarditis or pericarditis. The patient's neurological status was practically normal. The patient has been up and about with no neurological deficit. She has been oriented to time, place and person. The patient has coronary artery disease with stent placement. Cardiovascular status was stable. At the time of discharge the patient has been up and about with normal appetite. She has been afebrile for 6-7 days. She has no rash, no headache, no double vision, no nausea and no vomiting. She has been educated about Lyme disease and it's symptoms and different physical findings. The patient has appointment with Dr. Zimmerman. Doxycycline would be continued for 28 days. I am going to see her back in 3-4 days after discharge. At the time of discharge hgb 12.2, hct 34, WBC 8, 700 normal differential, creatinine 0.8, BUN 22, potassium 4.2, ESR rate was 32 , CRP was pending. CONDITION: Stable. TIME SPENT: More than 60 minutes. KALAD
--- NOTE | 2016-10-23 12:53 | PN ---
08: Level 5 10/10/16: Intermediate 10/11/16: Intermediate 10/12/16: Intermediate 10/13/16: Intermediate 10/14/16: Intermediate 10/15/16: D as in discharge MTDD
== END 2016-10-15 10:20 | disposition home or self-care (01) | DRG 869 ==
LOC: MEDSURG B 15:31
PROVIDERS: ADMIT Internal Medicine; ATTEND Internal Medicine
DX: A69.20 Lyme disease, unspecified (principal); R53.81 Other malaise; R50.9 Fever, unspecified; M25.50 Pain in unspecified joint; M79.1 Myalgia; R53.1 Weakness; R42 Dizziness and giddiness; E86.0 Dehydration; D72.819 Decreased white blood cell count, unspecified; I48.91 Unspecified atrial fibrillation; E07.9 Disorder of thyroid, unspecified; I25.10 Atherosclerotic heart disease of native coronary artery without angina pectoris; E78.5 Hyperlipidemia, unspecified; I73.9 Peripheral vascular disease, unspecified; E55.9 Vitamin D deficiency, unspecified; E53.8 Deficiency of other specified B group vitamins; M16.10 Unilateral primary osteoarthritis, unspecified hip; Z79.01 Long term (current) use of anticoagulants; Z79.899 Other long term (current) drug therapy; Z95.5 Presence of coronary angioplasty implant and graft
CPT/HCPCS: 36415; 80053; 81001; 82550; 82803; 83874; 83880; 84436; 84443; 84484; 85025; 85610; 85651; 86140; 86617; 86644; 86645; 86663; 87040; 87798; 93005; 93010; 99223; 99232; 99239

== ENCOUNTER 2017-04-28 10:09 | Outpatient (CLI) | END 2017-04-28 10:10 | disposition home or self-care (01) | LOC: RAD 10:09 | PROVIDERS: ATTEND Internal Medicine | DX: Z12.31 Encounter for screening mammogram for malignant neoplasm of breast (principal); Z90.11 Acquired absence of right breast and nipple ==

== ENCOUNTER 2017-12-23 09:37 | Outpatient (CLI) | payer OTHER ==
--- NOTE | 2017-12-23 10:52 | CT ---
EXAM: CT of the lumbar spine without contrast History: Left sided sciatica Technique: Multiplanar CT images through the lumbar spine were obtained without the administration o f IV contrast Findings: Atherosclerotic vascular calcifications. Osteopenia. No acute fracture or subluxation of the lumbar spine. Chronic-appearing compression def ormity involving superior endplate of L4. Mild to moderate multilevel disc space narrowing. P 12 L1: No significant bony central canal stenosis or bony neural foraminal narrowing. L1-L2: Right paracentral disc protrusion effacing anterior thecal sac with mild central canal stenos is. Mild to moderate left and mild right bony neural foraminal narrowing secondary to ligamentous an d facet hypertrophy. L2-L3: Posterior disc osteophyte complex effacing anterior thecal sac with moderate central canal st enosis. Moderate to severe left and moderate right bony neural foraminal narrowing secondary to liga mentous and facet hypertrophy. L3-L4: Posterior disc osteophyte complex effacing anterior thecal sac. Moderate to severe central c anal stenosis. Moderate to severe bilateral bony neural foraminal narrowing secondary to ligamentous and facet hypertrophy. L4-L5: Paracentral disc protrusion effacing anterior thecal sac with severe central canal stenosis du e to the disc and ligamentous hypertrophy. Moderate bilateral bony neural foraminal narrowing seconda ry to ligamentous and facet hypertrophy. L5-S1: Disc protrusion effacing anterior thecal sac with mild to moderate central canal stenosis. M oderate right and mild left bony neural foraminal narrowing secondary to ligamentous and facet hypert rophy. Impression: 1. No acute osseous abnormality of the lumbar spine. 2. Level by level analysis as detailed above with moderate to severe central canal stenosis at L3-L4 and severe central canal stenosis at L4-L5.
--- NOTE | 2017-12-23 11:24 | CT ---
EXAM: CT of the cervical spine without contrast History: Left cervical radiculopathy. Technique: Multiplanar CT images through the cervical spine were obtained without the administration of IV contrast Findings: The visualized upper lungs are free of consolidation. The visualized airway remains paten t. The No acute fracture or subluxation of the cervical spine. Reversal of the normal cervical lordosis. N o prevertebral soft tissue swelling. Predental space is not widened. C7 vertebral body hemangioma. Moderate to severe disc space narrowing at C6-7 and moderate disc space narrowing at C5-6. Mild to moderate disc space narrowing seen elsewhere. C2-3: No significant bony central canal stenosis. Moderate bilateral bony neural foraminal narrowing secondary to uncovertebral and facet hypertrophy. C3-4: No significant bony central canal stenosis. Severe bilateral bony neural foraminal narrowing secondary to uncovertebral and facet hypertrophy. C4-5: No significant bony central canal stenosis. Moderate to severe right and mild left bony neura l foraminal narrowing secondary to uncovertebral and facet hypertrophy. C5-6: Small posterior disc osteophyte complex with mild bony central canal stenosis. Moderate to se billy bilateral bony neural foraminal narrowing secondary to uncovertebral and facet hypertrophy. C6-7: Small posterior disc osteophyte complex with mild central canal stenosis. Severe bilateral [place] neural foraminal narrowing secondary to uncovertebral and facet hypertrophy. Impression: 1. No acute osseous abnormality of the cervical spine. 2. Degenerative changes with level by level analysis as detailed above
== END 2017-12-23 09:38 | disposition home or self-care (01) ==
LOC: RAD 09:37
PROVIDERS: ATTEND Internal Medicine
DX: M54.32 Sciatica, left side (principal); M54.12 Radiculopathy, cervical region

== ENCOUNTER 2018-04-29 08:00 | Outpatient (CLI) ==
--- NOTE | 2018-04-29 08:57 | MAMMO ---
EXAM: Left digital screening mammogram (2-D and 3-D) History: Screening Comparison: Left mammogram 04/28/2017 Findings: MLO and CC views of the left breast demonstrate scattered fibroglandular breast parenchyma . CAD was reviewed by the radiologist. Tomosynthesis was performed. There are no dominant masses, no suspicious microcalcifications and no architectural distortions. Stable benign vascular calcifica tions within the left breast. Impression: Benign stable left mammogram. Recommend follow-up screening mammography in 1 year. BIRADS 2, benign
== END 2018-04-29 08:01 | disposition home or self-care (01) ==
LOC: RAD 08:00
PROVIDERS: ATTEND Internal Medicine
DX: Z12.31 Encounter for screening mammogram for malignant neoplasm of breast (principal); Z90.11 Acquired absence of right breast and nipple

== ENCOUNTER 2018-11-23 12:35 | Inpatient (IN) ==
[2018-11-23] MEDS ORDERED: VISTARIL INJ IM PRN (13:07)
[2018-11-23] MEDS ORDERED: NITROSTAT SL PRN ×2 (13:07→13:21)
[2018-11-23] MEDS ORDERED: TYLENOL PO PRN (13:07)
[2018-11-23] MEDS ORDERED: ATROPINE SULFATE PFS IVP PRN (13:07)
[2018-11-23] MEDS ORDERED: ANTIVERT PO PRN (13:21)
[2018-11-23] MEDS ORDERED: XANAX PO PRN (13:21)
[2018-11-23] MEDS: XOPENEX 1.25 MG NEB SCH ×2 (14:05→20:40)
[2018-11-23] MEDS: ROCEPHIN 1 GM/50 ML D5W 1 GM/50 ML BAG IV SCH (14:24)
[2018-11-23] MEDS: SODIUM CHLORIDE 1,000 ML IV SCH (14:24)
[2018-11-23] MEDS: ZITHROMAX PO SCH (14:25)
[2018-11-23] MEDS: TUSSIONEX PO PRN (14:25)
[2018-11-23] MEDS: SOLU-CORTEF 100 MG IVP SCH ×2 (14:25→20:41)
--- NOTE | 2018-11-23 14:40 | DI ---
EXAM: Chest two views HISTORY: Pneumonia, shortness of breath FINDINGS: Compared to 10/09/2016. Heart size remains within normal limits. There is atheroscleroti c disease of the aorta. There is diffuse, chronic appearing interstitial accentuation. No acute inf iltrates are seen. No vascular congestion. There is no consolidation, visible pleural fluid or pneu mothorax. Bones reveal no acute fracture. Surgical clips over the right axilla. IMPRESSION: No acute cardiopulmonary process.
[2018-11-23] MEDS: BETAPACE PO SCH (20:41)
[2018-11-23] MEDS: CRESTOR PO SCH (20:41)
[2018-11-23] MEDS: ZETIA PO SCH (20:41)
[2018-11-24] MEDS: SODIUM CHLORIDE 1,000 ML IV SCH (03:41)
[2018-11-24] MEDS: SOLU-CORTEF 100 MG IVP SCH (04:15)
[2018-11-24] MEDS: XOPENEX 1.25 MG NEB SCH ×3 (04:45→19:55)
[2018-11-24] MEDS: SYNTHROID PO SCH ×2 (06:08)
[2018-11-24] MEDS: ROCEPHIN 1 GM/50 ML D5W 1 GM/50 ML BAG IV SCH (08:09)
[2018-11-24] MEDS: ASPIRIN EC PO SCH (08:26)
[2018-11-24] MEDS: ZITHROMAX PO SCH (08:26)
[2018-11-24] MEDS: BETAPACE PO SCH ×2 (08:26→20:03)
[2018-11-24] MEDS: LOTENSIN PO SCH (08:26)
[2018-11-24] MEDS: NORVASC PO SCH (08:26)
--- NOTE | 2018-11-24 08:57 | PCM.PROG ---
Attending Provider: ATTENDING PROVIDER: Dr. RICARDO HENLEY This patient is seen with Magdalena Velasco, Nurse Practitioner. DATE OF SERVICE: 11/24/18 SUBJECTIVE: This 83 year old WHITE/ F was hospitalized 11/23/18. The patient is lying in bed resting comfortably. She rested well through the night. Again, with barky cough this morning. Lungs sound slightly improved, still congested on the right side. REVIEW OF SYSTEMS: CONSTITUTIONAL: Weakness. No night sweats. No fatigue, malaise, lethargy. No fever or chills. HEENT: Eyes: No visual changes. No eye pain. No eye discharge. ENT: No runny nose. No epistaxis. No sinus pain. No odynophagia. No congestion. RESPIRATORY: Cough and congestion. Shortness of breath. No hemoptysis. CARDIOVASCULAR: No angina symptoms. No CHF symptoms. No atypical chest pain for CAD. No palpitations. No orthopnea.. GASTROINTESTINAL: No abdominal pain. No nausea or vomiting. No diarrhea or constipation. No hematemesis. No hematochezia. GENITOURINARY: No urgency. No frequency. No dysuria. No hematuria. No obstructive symptoms. No discharge. No pain. No significant abnormal bleeding. MUSCULOSKELETAL: No musculoskeletal pain; no joint swelling. NEUROLOGICAL: Awake, alert, oriented to time, place and person. No headache. No neck pain. No syncope. No seizures. No dizziness. PSYCHIATRIC: Not anxious. No depression. No suicidal thoughts. No homicidal thoughts. SKIN: No rash. No lesions. No wounds. ENDOCRINE: No unexplained weight loss. No weight gain. HEMATOLOGIC/LYMPHATIC: No anemia. No purpura. No petechiae. No prolonged or excessive bleeding. No palpable lymph nodes. PHYSICAL EXAMINATION: GENERAL: The patient is awake, alert and oriented, lying/sitting in bed in no distress. VITAL SIGNS: Temperature 98.0 F, Pulse 69, Respiratory Rate 16, BP 138/71, Pulse Ox 99% HEENT: Head normocephalic, atraumatic. Eyes: Extraocular muscles are intact. Pupils are equal, round and reactive to light and accommodation. Ears: No lesions. Nose appeared normal. Throat: No exudate or erythema. NECK: Supple. No JVD, no carotid bruit. No lymphadenopathy or thyromegaly. LUNGS: Diminished breath sounds. Right rhonchi with inspiratory and expiratory wheeze. Percussion note normal. Chest symmetrical. HEART: S1, S2, no S3. No murmurs. No cyanosis or clubbing. No ascites. Pulses: Dorsalis pedis and posterior tibial pulses +1 to +2 both sides. ABDOMEN: Soft. No tenderness. Bowel sounds active. No CVA tenderness. No mass felt. EXTREMITIES: No edema. Full range of motion of all extremities, equal. NEUROLOGIC: No focal deficit. Cranial nerves II through XII are grossly intact. No headache, no double vision or headache. SKIN: Not dry. Intact. Turgor-normal. LYMPHATIC: No palpable lymph nodes/no lymphedema. MUSCULOSKELETAL: Normal joints with no swelling. Muscle tone is normal. LAB REVIEW: 11/24/18 04:30 11/24/18 04:30 11/24/18 04:30: Sodium 135.8, Potassium 4.45, Chloride 107.7 H, Carbon Dioxide 22.1, Anion Gap 10.45, BUN 27.4 H, Creatinine 1.12, Estimated GFR (MDRD) 46.00, BUN/Creatinine Ratio 24.46, Glucose 130.5 H, Calcium 8.57, Total Bilirubin 0.39 , AST 25.4, ALT 21.2, Alkaline Phosphatase 64.7, Total Protein 7.07, Albumin 3.80, Globulin 3.27, Albumin/Globulin Ratio 1.16 11/24/18 04:30: PT 21.1 H, INR 2.25 11/24/18 04:30: WBC 10.49 H, RBC 4.24, Hgb 13.0, Hct 39.0, MCV 92.0, MCH 30.7, MCHC 33.3, RDW Coeff of [place] 12.9, Plt Count 237, Immature Gran % (Auto) 0.4, Neut % (Auto) 85.9, Lymph % (Auto) 10.5, [place] % (Auto) 2.9, Eos % (Auto) 0.0, Baso % (Auto) 0.3, Immature Gran # (Auto) 0.0, Neut # (Auto) 9.0 H, Lymph # ( Auto) 1.1, [place] # (Auto) 0.3 L, Eos # (Auto) 0.0, Baso # (Auto) 0.0 11/23/18 21:46: Urine Color Yellow, Urine Clarity Slightly, Urine pH 5.0, Ur Specific [place] 1.015, Urine Protein Trace, Urine Glucose (UA) Negative, Urine Ketones Negative, Urine Blood Negative, Urine Nitrite Negative, Urine Bilirubin Negative, Urine Urobilinogen 0.2, Ur Leukocyte Esterase Negative, Urine Microscopic WBC 2-5, Ur Squamous Epith Cells 2-5, Urine Bacteria Trace, Hyaline Casts 2-5 11/23/18 13:07: Sodium 138.2, Potassium 4.24, Chloride 104.9, Carbon Dioxide 26.6, Anion Gap 10.94, BUN 17.3 H, Creatinine 1.12, Estimated GFR (MDRD) 46.00, BUN/Creatinine Ratio 15.44, Glucose 85.5, Calcium 9.30, Total Bilirubin 0.57, AST 27.9, ALT 21.8, Alkaline Phosphatase 72.3, Total Protein 8.33 H, Albumin 4.62, Globulin 3.71, Albumin/Globulin Ratio 1.24 11/23/18 13:07: PT 20.1 H, INR 2.14 11/23/18 13:07: WBC 7.62, RBC 4.59, Hgb 14.3, Hct 42.3, MCV 92.2, MCH 31.2 H, MCHC 33.8, RDW Coeff of [place] 13.0, Plt Count 239, Immature Gran % (Auto) 0.3, Neut % (Auto) 57.9, Lymph % (Auto) 23.5, [place] % (Auto) 12.9 H, Eos % (Auto) 4.2 , Baso % (Auto) 1.2, Immature Gran # (Auto) 0.0, Neut # (Auto) 4.4, Lymph # ( Auto) 1.8, [place] # (Auto) 1.0, Eos # (Auto) 0.3, Baso # (Auto) 0.1 ASSESSMENT: Please see below. 1. Acute pneumonitis/shortness of breath improved. 2. Atrial fibrillation on Coumadin. PLAN: 1. Increase Solu-Cortef to 125 q.8hr. 2. D/C IV fluids. Plan and coordination of the patient's care discussed in the presence of Brass Roller and nurse. CONDITION: Stable SCRIBED BY: Henrietta BRUNNER scribed while in presence of service performed by Dr. Henley/Magdalena Velasco APRN on 11/24/18 (0743)
[2018-11-24] MEDS ORDERED: LEVOTHYROXINE SODIUM 125 MG PO SCH (09:00)
[2018-11-24] MEDS ORDERED: NON-FORMULARY MEDICATION (Benazepril Hcl [Lotensin] 40 MG) PO SCH (09:00)
--- NOTE | 2018-11-24 10:14 | HP ---
DATE OF SERVICE: 11/23/18 REASON FOR HOSPITALIZATION/HISTORY OF PRESENT ILLNESS: 83 year old female hospitalized still with head and chest congestion. She took a z-pack and Prednisone and not feeling any better. She is having shortness of breath now and worse at night or with exertion. The patient has been running a low grade temperature. PAST MEDICAL HISTORY: Right breast cancer BRYAN Atrial fibrillation PAD Vitamin D Deficiency Dyslipidemia Hypertension CAD Osteoarthritis hip PAST SURGICAL HISTORY: Hysterectomy Thyroid Right breast mastectomy REVIEW OF SYSTEMS: CONSTITUTIONAL: No fever, Fatigue. HEENT: Sinus drainage, no sore throat. RESPIRATORY: No cough, no congestion. CARDIOVASCULAR: No atypical chest pain for coronary artery disease. No angina , CHF symptoms, palpitations. Shortness of breath. GASTROINTESTINAL: No melena or abdominal pain. No GERD. GENITOURINARY: No hematuria, no prostatism, no polyuria. DISTRIBUTOR CLEANER: No blackout, no dizziness, no headache, no double vision. MUSCULOSKELETAL: Osteoarthritis pain, no joint swelling. ENDOCRINE: No weight loss, no weight gain. SKIN: Not dry, no rash. PSYCHIATRIC: Not anxious, no depression, no suicidal thoughts, no homicidal thoughts. SOCIAL HISTORY: Marital Status: and lives with . Alcohol Usage: Occasional. Tobacco Usage: No. No falls, No incontinence and no depression. Performs all ADL 's. FAMILY HISTORY: Father Mother Brothers 5 Sisters 2 MEDICATIONS: Synthroid 125mcg tablet PO daily Xanax 0.25mg one tablet PRN Betapace 80mg PO two times daily Antivert 25mg one tablet three times a day Benazepril 40mg PO daily Coumadin 2mg PO daily [place] 0.1% cream apply thin later to the affected area by topical route times per day Amlodipine 5mg PO daily Zetia 10mg Po daily Crestor 20mg Po daily Nitroglycerin 0.4mg PO first sign of an attack, no more than three tablets are recommended within a 15 minute period. ALLERGIES: Vytorin Codeine PHYSICAL EXAMINATION: V/S: Pulse 80, blood pressure 188/80, temperature 98, Oxygen saturation 96%. Height 5'4, Weight 162.6 with BMI 27.9. GENERAL APPEARANCE: Oriented times three. HEENT: Yellow sputum. Pallor. NECK: No JVP, no bruits. RESPIRATORY: Decreased breath sounds with rales in the right lower lobe. CARDIOVASCULAR: S1, S2, no S3, Irregular. No murmurs. No cyanosis, clubbing. No ascites. GI/ABDOMEN: No tenderness. Bowel sounds are active. EXTREMITIES: edema, pulses +1, equal. DISTRIBUTOR CLEANER: Deep tendon reflexes, sensory, motor and gait all normal. RECTAL: The patient refused/PELVIC: Advised yearly. History of Cancer right breast 04/21 [facility]. LABS: Potassium 4.2, creatinine 1, BUN 17. Liver profile normal. INR 2.1, hemoglobin 14, hematocrit 42, WBC 7,600, normal differential. ASSESSMENT: 1. Acute pneumonia 2. Shortness of breath 3. History of left sciatica 4. Basal cell left cheek 5. History of Lyme disease 6. History of herpes zoster 7. BRYAN 8. Atrial fibrillation on Coumadin-refuses Novel blood thinner 9. History of right breast cancer, 81- right mastectomy 10.PAD with claudication 11.Vitamin D deficiency 12.Hypertension 13.Right sciatica 14.Right cervical radiculopathy 15.Dyslipidemia 16.Osteoarthritis, hip 17.B12 deficiency 18.CAD 19.Severe L4, L5 and L3 per CT 20.Status post thyroidectomy PLAN: 1. Admit 2. Routine telemetry orders, No cardiac markers 3. U/A 4. Normal saline IV @ 75cc hourly 5. Xopenex NEBS three times a day scheduled 6. Solu-Cortef 100mg IV Q 8 hourly 7. Rocephin 1gram IV daily times 5 days 8. CBC/CMP daily 9. Sputum Culture 10.Regular diet 11.Continue home medications 12.Daily INR 13.Tussionex 5ml Q 12 hour PRN 14.Chest x-ray 15.Zithromax 500mg PO daily times 3 days. 16.Continue all medications, not taking Crestor regularly, Pt declines any other Statins TIME SPENT: More than 70 minutes. MTDD
[2018-11-24] MEDS: SOLU-CORTEF 250 MG IVP SCH ×2 (12:56→20:02)
[2018-11-24] MEDS: TUSSIONEX PO PRN (13:09)
[2018-11-24] MEDS: COUMADIN PO SCH (16:32)
[2018-11-24] MEDS: CRESTOR PO SCH (20:03)
[2018-11-24] MEDS: ZETIA PO SCH (20:03)
[2018-11-25] MEDS: XOPENEX 1.25 MG NEB SCH ×3 (05:35→19:32)
[2018-11-25] MEDS: SYNTHROID PO SCH ×2 (05:42)
[2018-11-25] MEDS: SOLU-CORTEF 250 MG IVP SCH ×3 (05:42→20:25)
[2018-11-25] MEDS: ROCEPHIN 1 GM/50 ML D5W 1 GM/50 ML BAG IV SCH (09:17)
[2018-11-25] MEDS: ASPIRIN EC PO SCH (09:17)
--- NOTE | 2018-11-25 09:20 | PCM.PROG ---
Attending Provider: ATTENDING PROVIDER: Dr. RICARDO HENLEY DATE OF SERVICE: 11/25/18 SUBJECTIVE: This 83 year old WHITE/ F was hospitalized 11/23/18 with acute pneumonitis. The patient is feeling little better with less cough at night. No fever, no chills, appetite is improved. No symptoms of CHF or coronary insufficiency. Appetite is improved. No symptoms of CHF or coronary insufficiency. REVIEW OF SYSTEMS: CONSTITUTIONAL: No night sweats. No fatigue, malaise, lethargy. No fever or chills. HEENT: Eyes: No visual changes. No eye pain. No eye discharge. ENT: No runny nose. No epistaxis. No sinus pain. No odynophagia. No congestion. RESPIRATORY: Cough and wheeze. No hemoptysis. No shortness of breath. CARDIOVASCULAR: No angina symptoms. No CHF symptoms. No atypical chest pain for CAD. No palpitations. No orthopnea.. GASTROINTESTINAL: No abdominal pain. No nausea or vomiting. No diarrhea or constipation. No hematemesis. No hematochezia. GENITOURINARY: No urgency. No frequency. No dysuria. No hematuria. No obstructive symptoms. No discharge. No pain. No significant abnormal bleeding. MUSCULOSKELETAL: No musculoskeletal pain; no joint swelling. NEUROLOGICAL: Awake, alert, oriented to time, place and person. No headache. No neck pain. No syncope. No seizures. No dizziness. PSYCHIATRIC: Not anxious. No depression. No suicidal thoughts. No homicidal thoughts. SKIN: No rash. No lesions. No wounds. ENDOCRINE: No unexplained weight loss. No weight gain. HEMATOLOGIC/LYMPHATIC: No anemia. No purpura. No petechiae. No prolonged or excessive bleeding. No palpable lymph nodes. PHYSICAL EXAMINATION: GENERAL: The patient is awake, alert and oriented, lying/sitting in bed in no distress. VITAL SIGNS: Temperature 98.3 F, Pulse 70, Respiratory Rate 18, BP 120/64, Pulse Ox 92% HEENT: Head normocephalic, atraumatic. Eyes: Extraocular muscles are intact. Pupils are equal, round and reactive to light and accommodation. Ears: No lesions. Nose appeared normal. Throat: No exudate or erythema. NECK: Supple. No JVD, no carotid bruit. No lymphadenopathy or thyromegaly. LUNGS: Bilateral mild expiratory wheeze. Percussion note normal. Chest symmetrical. HEART: S1, S2, no S3. No murmurs. No cyanosis or clubbing. No ascites. Pulses: Dorsalis pedis and posterior tibial pulses +1 to +2 both sides. ABDOMEN: Soft. Non-tender. Bowel sounds active. No CVA tenderness. No mass felt. EXTREMITIES: No edema. Full range of motion of all extremities, equal. NEUROLOGIC: No focal deficit. Cranial nerves II through XII are grossly intact. No headache, no double vision or headache. SKIN: Warm and dry. Intact. Turgor-normal. LYMPHATIC: No palpable lymph nodes/no lymphedema. MUSCULOSKELETAL: Normal joints with no swelling. Muscle tone is normal. LAB REVIEW: 11/25/18 06:13 11/25/18 06:13 11/25/18 06:13: Sodium 137.9, Potassium 3.99, Chloride 108.9 H, Carbon Dioxide 22.8, Anion Gap 10.19, BUN 25.7 H, Creatinine 1.01, Estimated GFR (MDRD) 52.00, BUN/Creatinine Ratio 25.44, Glucose 111.4 H, Calcium 8.53, Total Bilirubin 0.28 , AST 22.9, ALT 21.7, Alkaline Phosphatase 79.2, Total Protein 7.16, Albumin 3.88, Globulin 3.28, Albumin/Globulin Ratio 1.18 11/25/18 06:13: PT 20.5 H, INR 2.18 11/25/18 06:13: WBC 15.69 H D, RBC 4.12 L, Hgb 12.6, Hct 37.9, MCV 92.0, MCH 30.6, MCHC 33.2, RDW Coeff of Hawa 12.9, Plt Count 262, Immature Gran % (Auto) 0.5, Neut % (Auto) 85.8, Lymph % (Auto) 9.3 L, Stokes % (Auto) 4.3, Eos % (Auto) 0.0, Baso % (Auto) 0.1, Immature Gran # (Auto) 0.1, Neut # (Auto) 13.5 H, Lymph # (Auto) 1.5, Stokes # (Auto) 0.7, Eos # (Auto) 0.0, Baso # (Auto) 0.0 ASSESSMENT: Please see below. 1. Acute pneumonitis/bronchitis being treated with antibiotics, steroids, nebs and antitussives. PLAN: 1. Echocardiogram ordered. 1. Discontinue IV fluids. 3. Continue steroids and antibiotics. Plan and coordination of the patient's care discussed in the presence of Public Transit Trolley Driver and nurse. CONDITION: Slowy improving. SCRIBED BY: BENNIE AVITIA Jet Piercer Operator scribed while in presence of service performed by Dr. RICARDO HENLEY on 11/25/18 ([id number])
[2018-11-25] MEDS: LOTENSIN PO SCH (09:23)
[2018-11-25] MEDS: ZITHROMAX PO SCH (09:23)
[2018-11-25] MEDS: BETAPACE PO SCH ×2 (09:23→20:26)
[2018-11-25] MEDS: NORVASC PO SCH (09:24)
--- NOTE | 2018-11-25 13:18 | PN ---
DATE OF SERVICE: 11/24/18 SUBJECTIVE: The patient was seen and examined with the Nurse Practitioner. The patient says that she practically slept all night without coughing much. Still has mild croupy cough. No symptoms of CHF or coronary insufficiency. Cardiovascular status is stable. Continue antibiotics and steroids. TIME SPENT: More than 30 minutes. Plan and coordination of the patient's care discussed in the presence of nurse. RYLIE
[2018-11-25] MEDS: COUMADIN PO SCH (17:12)
[2018-11-25] MEDS: ZETIA PO SCH (20:26)
[2018-11-25] MEDS: CRESTOR PO SCH (20:26)
[2018-11-26] MEDS: XOPENEX 1.25 MG NEB SCH ×3 (04:45→20:30)
[2018-11-26] MEDS: SOLU-CORTEF 250 MG IVP SCH ×3 (05:44→21:02)
[2018-11-26] MEDS: SYNTHROID PO SCH ×2 (05:44)
[2018-11-26] MEDS: ROCEPHIN 1 GM/50 ML D5W 1 GM/50 ML BAG IV SCH (09:41)
[2018-11-26] MEDS: ASPIRIN EC PO SCH (09:44)
[2018-11-26] MEDS: BETAPACE PO SCH ×2 (09:44→21:02)
[2018-11-26] MEDS: LOTENSIN PO SCH (09:45)
[2018-11-26] MEDS: NORVASC PO SCH (09:45)
--- NOTE | 2018-11-26 09:55 | PCM.PROG ---
Attending Provider: ATTENDING PROVIDER: Dr. RICARDO HENLEY DATE OF SERVICE: 11/26/18 SUBJECTIVE: This 83 year old WHITE/ F was hospitalized 11/23/18. The patient is hospitalized with acute pneumonitis. Condition improved. Coughing less. REVIEW OF SYSTEMS: CONSTITUTIONAL: No night sweats. No fatigue, malaise, lethargy. No fever or chills. HEENT: Eyes: No visual changes. No eye pain. No eye discharge. ENT: No runny nose. No epistaxis. No sinus pain. No odynophagia. No congestion. RESPIRATORY: Mild cough, no congestion. No hemoptysis. No shortness of breath. CARDIOVASCULAR: No angina symptoms. No CHF symptoms. No atypical chest pain for CAD. No palpitations. No orthopnea.. GASTROINTESTINAL: Appetite improved. No abdominal pain. No nausea or vomiting. No diarrhea or constipation. No hematemesis. No hematochezia. GENITOURINARY: No urgency. No frequency. No dysuria. No hematuria. No obstructive symptoms. No discharge. No pain. No significant abnormal bleeding. MUSCULOSKELETAL: No musculoskeletal pain; no joint swelling. NEUROLOGICAL: Awake, alert, oriented to time, place and person. No headache. No neck pain. No syncope. No seizures. No dizziness. PSYCHIATRIC: Not anxious. No depression. No suicidal thoughts. No homicidal thoughts. SKIN: No rash. No lesions. No wounds. ENDOCRINE: No unexplained weight loss. No weight gain. HEMATOLOGIC/LYMPHATIC: No anemia. No purpura. No petechiae. No prolonged or excessive bleeding. No palpable lymph nodes. PHYSICAL EXAMINATION: GENERAL: The patient is awake, alert and oriented, lying/sitting in bed in no distress. VITAL SIGNS: Temperature 97.9 F, Pulse 65, Respiratory Rate 16, BP 140/70, Pulse Ox 92% HEENT: Head normocephalic, atraumatic. Eyes: Extraocular muscles are intact. Pupils are equal, round and reactive to light and accommodation. Ears: No lesions. Nose appeared normal. Throat: No exudate or erythema. NECK: Supple. No JVD, no carotid bruit. No lymphadenopathy or thyromegaly. LUNGS: Harsh breath sounds. No wheezing heard. Percussion note normal. Chest symmetrical. HEART: Cardiovascular status is stable. S1, S2, no S3. No murmurs. No cyanosis or clubbing. No ascites. Pulses: Dorsalis pedis and posterior tibial pulses +1 to +2 both sides. ABDOMEN: Soft. Non-tender. Bowel sounds active. No CVA tenderness. No mass felt. EXTREMITIES: No edema. Full range of motion of all extremities, equal. NEUROLOGIC: No focal deficit. Cranial nerves II through XII are grossly intact. No headache, no double vision or headache. SKIN: Warm and dry. Intact. Turgor-normal. LYMPHATIC: No palpable lymph nodes/no lymphedema. MUSCULOSKELETAL: Normal joints with no swelling. Muscle tone is normal. LAB REVIEW: 11/26/18 04:54 11/26/18 04:54 11/26/18 04:54: Sodium 138.6, Potassium 3.78, Chloride 109.5 H, Carbon Dioxide 23.1, Anion Gap 9.78, BUN 22.0 H, Creatinine 0.91, Estimated GFR (MDRD) 59.00, BUN/Creatinine Ratio 24.17, Glucose 118.3 H, Calcium 8.04 L, Total Bilirubin 0.28, AST 25.3, ALT 27.5, Alkaline Phosphatase 59.3, Total Protein 6.33, Albumin 3.44 L, Globulin 2.89, Albumin/Globulin Ratio 1.19 11/26/18 04:54: WBC 12.80 H, RBC 3.80 L, Hgb 11.9 L, Hct 34.5 L, MCV 90.8, MCH 31.3 H, MCHC 34.5, RDW Coeff of Hawa 13.1, Plt Count 233, Immature Gran % (Auto) 0.6, Neut % (Auto) 84.2, Lymph % (Auto) 11.6, Titus % (Auto) 3.5, Eos % (Auto) 0.0, Baso % (Auto) 0.1, Immature Gran # (Auto) 0.1, Neut # (Auto) 10.8 H, Lymph # (Auto) 1.5, Titus # (Auto) 0.5, Eos # (Auto) 0.0, Baso # (Auto) 0.0 ASSESSMENT: Please see below. 1. Acute pneunonitis/bronchitis resolving. 2. Cardiovascular status is stable. PLAN: 1. Continue antibiotics, steroids and nebs. 2. Chest x-ray. Plan and coordination of the patient's care discussed in the presence of Director Of Operations and nurse. CONDITION: Stable SCRIBED BY: BENNIE AVITIA Peer Specialist scribed while in presence of service performed by Dr. RICARDO HENLEY on 11/26/18 ([id number])
--- NOTE | 2018-11-26 10:42 | PN ---
DATE OF SERVICE: 11/23/18 SUBJECTIVE: The patient was seen and examined with the Nurse Practitioner. The patient is admitted with pneumonitis. Her cardiovascular status is stable. Agreed with initiation of antibiotic therapy with steroids. CONDITION: Stable. TIME SPENT: More than 30 minutes. Plan and coordination of the patient's care discussed in the presence of nurse. RYLIE
--- NOTE | 2018-11-26 15:38 | DI ---
EXAM: Chest two views HISTORY: Cough and wheezing. FINDINGS: Heart size is within normal limits. Atherosclerotic disease is present. There is diffuse , chronic appearing interstitial accentuation. No acute infiltrates are seen. No vascular congestio n. There is no consolidation, visible pleural fluid or pneumothorax. Bones reveal no acute fracture . Surgical clips over the right axilla again noted. IMPRESSION: No acute cardiopulmonary process.
[2018-11-26] MEDS: COUMADIN PO SCH (16:30)
[2018-11-26] MEDS: CRESTOR PO SCH (21:02)
[2018-11-26] MEDS: ZETIA PO SCH (21:02)
[2018-11-27] MEDS: XOPENEX 1.25 MG NEB SCH (04:50)
[2018-11-27 05:01] VITALS: BP 150/81; TEMP 97.8
[2018-11-27] MEDS: SYNTHROID PO SCH ×2 (05:57)
[2018-11-27] MEDS: SOLU-CORTEF 250 MG IVP SCH (05:57)
[2018-11-27] MEDS ORDERED: K-DUR PO STA (08:16)
[2018-11-27] MEDS ORDERED: COUMADIN PO SCH (08:16)
[2018-11-27] MEDS: ROCEPHIN 1 GM/50 ML D5W 1 GM/50 ML BAG IV SCH (09:12)
[2018-11-27] MEDS: PROAIR HFA IH SCH ×2 (09:13→11:52)
[2018-11-27] MEDS: TUSSIONEX PO PRN (09:13)
[2018-11-27] MEDS: ASPIRIN EC PO SCH (09:13)
[2018-11-27] MEDS: NORVASC PO SCH (09:14)
[2018-11-27] MEDS: LOTENSIN PO SCH (09:14)
[2018-11-27] MEDS: BETAPACE PO SCH (09:14)
--- NOTE | 2018-11-27 11:55 | CM.DICTOOL ---
ADMISSION: 11/23/18 12:35 DISCHARGE: 2018 DATE OF SERVICE: 11/27/18 FINAL DIAGNOSIS ACUTE PNEUMONITIS/BRONCHITIS SHORTNESS OF AIR HYPERTENSION ATRIAL FIBRILLATION (ON COUMADIN) CAD S/P STENT APPLICATION (1998) CANCER, RIGHT BREAST BASAL CELL, LEFT CHEEK H/O LYME DISEASE DDD, LUMBAR SPINE DYSLIPIDEMIA MASTECTOMY, RIGHT STENT APPLICATION THYROIDECTOMY LAST ECHO: 11/19 LAST VITALS Temp Pulse Resp BP Pulse Ox 97.8 F 63 16 150/81 H 94 L 11/27/18 04:59 11/27/18 04:59 11/27/18 04:59 11/27/18 04:59 11/27/18 04:59 TAKE THESE MEDICATIONS AT HOME Albuterol Sulfate (Proair Hfa) 2 puff IH Q6HR [facility] Last Admin: 11/27/18 09:13 Dose: 2 puff Alprazolam (Xanax) 0.25 mg PO DAILY PRN PRN Reason: Anxiety Amlodipine Besylate (Norvasc) 5 mg PO DAILY [facility] Last Admin: 11/27/18 09:14 Dose: 5 mg Benazepril HCl (Lotensin) 40 mg PO DAILY [facility] Last Admin: 11/27/18 09:14 Dose: 40 mg Chlorphenir/Hydrocodone Polistirex (Tussionex) 5 ml PO Q12H PRN PRN Reason: Cough Last Admin: 11/27/18 09:13 Dose: 5 ml Ezetimibe (Zetia) 10 mg PO BEDTIME [facility] Last Admin: 11/26/18 21:02 Dose: 10 mg Levothyroxine Sodium (Synthroid) 125 mcg PO QDAC [facility] Last Admin: 11/27/18 05:57 Dose: 125 mcg Meclizine HCl (Antivert) 25 mg PO TID PRN PRN Reason: Dizziness Nitroglycerin (Nitrostat) 0.4 mg SL Q5MIN X 3 DOSES PRN PRN Reason: Angina Prednisone 10 mg PO BIDWM for FIVE days Last Admin: n/a Rosuvastatin Calcium (Crestor) 20 mg PO BEDTIME [facility] Last Admin: 11/26/18 21:02 Dose: 20 mg Sotalol HCl (Betapace) 80 mg PO BID [facility] Last Admin: 11/27/18 09:14 Dose: 80 mg Warfarin Sodium (Coumadin) 2 mg PO QPM [facility] SKIP DOSE ON FRIDAY EVENING, RESUME FRIDAY ALLERGIES codeine Adverse Reaction (Verified 10/10/16 00:21) ezetimibe [From Vytorin] Adverse Reaction (Verified 10/10/16 00:21) simvastatin [From Vytorin] Adverse Reaction (Verified 10/10/16 00:21) MEDICATION ON HOLD HOLD COUMADIN TONIGHT Friday11/27/18. RESUME COUMADIN 2 MG PO EVERY EVENING STARTING Friday11/28/18. DISCONTINUED MEDICATIONS NONE NEW PRESCRIPTIONS: TUSSIONEX 5 ML BY MOUTH TWICE A DAY NEEDED FOR COUGH PREDNISONE 10 MG ONE TABLET BY MOUTH (TAKE WITH FOOD) TWICE A DAY FOR FIVE DAYS PRO AIR INHALER 2 PUFFS EVERY 6 HOURS SMOKING: NON SMOKER DISEASE SPECIFIC EDUCATION: PNEUMONITIS BRONCHITIS COUMADIN PREDNISONE TUSSIONEX FOLLOW UP APPOINTMENT LAB REVIEW: 11/27/18 04:30 11/27/18 04:30 11/27/18 04:30: Sodium 137.6, Potassium 3.39 L, Chloride 106.9, Carbon Dioxide 25.2, Anion Gap 8.89, BUN 21.3 H, Creatinine 0.74, Estimated GFR (MDRD) 75.00, BUN/Creatinine Ratio 28.78, Glucose 121.7 H, Calcium 7.80 L, Total Bilirubin 0.31, AST 37.9 H, ALT 38.2 H, Alkaline Phosphatase 61.1, Total Protein 6.23 L, Albumin 3.33 L, Globulin 2.90, Albumin/Globulin Ratio 1.14 11/27/18 04:30: WBC 9.74, RBC 3.80 L, Hgb 11.9 L, Hct 34.0 L, MCV 89.5, MCH 31.3 H, MCHC 35.0, RDW Coeff of Hawa 12.7, Plt Count 219, Immature Gran % (Auto) 0.8, Neut % (Auto) 81.7, Lymph % (Auto) 13.4, Tyrrell % (Auto) 4.0, Eos % (Auto) 0.0, Baso % (Auto) 0.1, Immature Gran # (Auto) 0.1, Neut # (Auto) 8.0 H, Lymph # (Auto) 1.3, Tyrrell # (Auto) 0.4, Eos # (Auto) 0.0, Baso # (Auto) 0.0 11/27/18 04:30: PT 30.7 H D, INR 3.35 PLAN: DISCHARGE HOME TODAY 2018 DIET: REGULAR TOLERATED ACTIVITY: PLENTY OF REST, GRADUALLY INCREASE ABLE FOLLOW UP WITH DR. SORIA/JOSH VELASCO APRN ON December AT 10 AM. PLEASE CALL TO RESCHEDULE THE APPOINTMENT IF UNABLE TO KEEP. [phone]. DO NOT INTUBATE, CPR ONLY ALERT, ORIENTED TIMES THREE. MRS. GREGORIO IS AGREEABLE WITH DISCHARGE HOME TODAY. SHE IS INDEPENDENT WITH ADL'S. AMBULATES WITHOUT ANY ASSISTIVE DEVICE. REPORTS HER BREATHING HAS IMPROVED, WITH MINIMAL SOA ON EXERTION. CONTINUES TO HAVE A INTERMITTENT NON PROD. COUGH. SHE IS CONTINENT OF HER BLADDER AND BOWELS. LAST BM 11/26. APPETITE HAS BEEN EXCELLENT WITH MEAL INTAKE 100%. HYDRATION STATUS HAS IMPROVED. PT/INR IS ELEVATED AT 30.7, 3.35, WILL HOLD THE COUMADIN THIS EVENING (FRIDAY) AND RESUME THE 2 MG PO TOMORROW EVENING ( TUESDAY 11/28). NO S/S OF ACTIVE BLEEDING NOTED. SKIN IS INTACT. Elkin Soria M.D. Josh Velasco APRN
--- NOTE | 2018-11-30 11:07 | ECHO2D ---
Date of Exam: 11/27/18 Ordering Physician: DR. RICARDO HENLEY Room #: [id number] Reason for Echo: SOB, EVALUATE LEFT VENTRICLE FUNCTION, FEVER, DYSLIPIDEMIA, PNEUMONITIS M-Mode Normal Adult Results LV Dimensions Normal Adult Results AoV Opening excursions >1.6 >1.6 LVEDD-base- 3.5-5.8 4.6 Ao root dimensions 2.0-3.7 3.2 LVESD-base- 3.1-4.6 L. Atrium dimensions 1.9-3.8 3.9 Post. Wall thickness 0.8-1.1 1.2 IV septum (thickness) 0.7-1.2 1.1 Post. Wall excursion 0.72-1.3 NORMAL Septal motion NORMAL Systolic motion R. Ventricular cavity 1.5-2.0 NORMAL LVEF 60% 61% Paradoxical septal wall motion NORMAL 2-D : 2-D M Mode Echocardiogram was performed using apical four chamber and left parasternal long and short axis views. Mitral, tricuspid and aortic valves appear to be normal. Contractility of the left ventricle seems to be normal, so is the cavity size. Left atrial cavity size and aortic root appear to be normal. There is no pericardial effusion. There is no thrombus noted in the left ventricle or left atrial cavity. No mitral valve prolapse noted. M-MODE: MV: NORMAL AV: NORMAL TV: NORMAL PV: CHAMBER SIZE: NORMAL WALL MOTION: NORMAL PERICARDIUM: NORMAL INTERPRETATION: 1. NORMAL 2 "D" "M" MODE [facility]
--- NOTE | 2018-12-02 09:37 | PN ---
DATE OF SERVICE: 11/27/18 SUBJECTIVE: The patient examined while lying in bed. Her coughing is much better. She is feeling less short of breath. She has been up and about going to the bathroom by herself. She is ready to go home today. REVIEW OF SYSTEMS: CONSTITUTIONAL: No night sweats. No fatigue, malaise, lethargy. No fever or chills. HEENT: Eyes: No visual changes. No eye pain. No eye discharge. ENT: No runny nose. No epistaxis. No sinus pain. No sore throat. No odynophagia. No congestion. RESPIRATORY: Positive for cough. No hemoptysis. No shortness of breath. CARDIOVASCULAR: No angina symptoms. No CHF symptoms. No atypical chest pain for CAD. No palpitations. No PND. No orthopnea. GASTROINTESTINAL: No abdominal pain. No nausea or vomiting. No diarrhea or constipation. No hematemesis. No hematochezia. GENITOURINARY: No urgency. No frequency. No dysuria. No hematuria. No obstructive symptoms. No discharge. No pain. No significant abnormal bleeding. MUSCULOSKELETAL: No musculoskeletal pain; no joint swelling. NEUROLOGICAL: No headache. No neck pain. No syncope. No seizures. No dizziness. PSYCHIATRIC: Not anxious. No depression. No suicidal thoughts. No homicidal thoughts. SKIN: No rash. No lesions. No wounds. ENDOCRINE: No unexplained weight loss. No weight gain. HEMATOLOGIC/LYMPHATIC: No anemia. No purpura. No petechiae. No prolonged or excessive bleeding. No palpable lymph nodes. PHYSICAL EXAMINATION: HEENT: Head normocephalic, atraumatic. Eyes: Extraocular muscles are intact. Pupils are equal, round and reactive to light and accommodation. Ears: No lesions. Nose appeared normal. Throat: No exudate or erythema. NECK: Supple. No JVD, no carotid bruit. No lymphadenopathy or thyromegaly. LUNGS: Diminished breath sounds bilaterally. Clear to auscultation. Percussion note normal. Chest symmetrical. HEART: S1, S2, no S3. No murmurs. No cyanosis or clubbing. No ascites. Pulses: Dorsalis pedis and posterior tibial pulses +1 to +2 bilaterally. ABDOMEN: Soft. Nontender. Bowel sounds active. No CVA tenderness. No mass felt. EXTREMITIES: No edema. Full range of motion of all extremities, equal. NEUROLOGIC: No focal deficit. Cranial nerves II through XII are grossly intact. No headache, no double vision or headache. SKIN: Not dry. Intact. Turgor - normal. LYMPHATIC: No palpable lymph nodes/no lymphedema. MUSCULOSKELETAL: Normal joints with no swelling. Muscle tone is normal. ASSESSMENT: 1. Acute pneumonitis/shortness of breath. 2. Atrial fibrillation. PLAN: 1. D/C home. 2. She will have 40 mEq of potassium times one dose prior to discharge. 3. Prednisone 10 mg p.o. b.i.d times five days. 4. Tussionex one teaspoon b.i.d. p.r.n. 5. Hold Coumadin for tonight as INR is 3.3. 6. Will followup with her in the office next week. TIME SPENT: More than 30 minutes. Plan and coordination of the patient's care discussed in the presence of nurse. RYLIE
--- NOTE | 2018-12-08 12:58 | DS ---
DATE OF SERVICE: 11/27/18 FINAL DIAGNOSIS: 1. ACUTE PNEUMONITIS/BRONCHITIS 2. SHORTNESS OF AIR 3. HYPERTENSION 4. ATRIAL FIBRILLATION (ON COUMADIN) 5. CAD S/P STENT APPLICATION (1998) 6. CANCER, RIGHT BREAST 7. BASAL CELL, LEFT CHEEK 8. H/O LYME DISEASE 9. DDD, LUMBAR SPINE 10.DYSLIPIDEMIA 11.MASTECTOMY, RIGHT 12.STENT APPLICATION 13.THYROIDECTOMY 14.LAST ECHO: 11/19 LAST VITALS: Temp Pulse Resp BP Pulse Ox 97.8 F 63 16 150/81 H 94 L 11/27/18 04:59 11/27/18 04:59 11/27/18 04:59 11/27/18 04:59 11/27/18 04:59 DISCHARGE INSTRUCTIONS: DISCHARGE HOME TODAY 2018. FOLLOW UP WITH DR. HENLEY/JOSH GAMEZ APRN ON December AT 10 AM. PLEASE CALL TO RESCHEDULE THE APPOINTMENT IF UNABLE TO KEEP. [phone]. DO NOT INTUBATE, CPR ONLY. TAKE THESE MEDICATIONS AT HOME: Albuterol Sulfate (Proair Hfa) 2 puff IH Q6HR RAMY Alprazolam (Xanax) 0.25 mg PO DAILY PRN Amlodipine Besylate (Norvasc) 5 mg PO DAILY RAMY Benazepril HCl (Lotensin) 40 mg PO DAILY RAMY Chlorphenir/Hydrocodone Polistirex (Tussionex) 5 ml PO Q12H PRN Ezetimibe (Zetia) 10 mg PO BEDTIME RAMY Levothyroxine Sodium (Synthroid) 125 mcg PO QDAC RAMY Meclizine HCl (Antivert) 25 mg PO TID PRN Nitroglycerin (Nitrostat) 0.4 mg SL Q5MIN X 3 DOSES PRN Prednisone 10 mg PO BIDWM for FIVE days Rosuvastatin Calcium (Crestor) 20 mg PO BEDTIME RAMY Sotalol HCl (Betapace) 80 mg PO BID RAMY Warfarin Sodium (Coumadin) 2 mg PO QPM RAMY SKIP DOSE ON FRIDAY EVENING, RESUME FRIDAY ALLERGIES: codeine Adverse Reaction (Verified 10/10/16 00:21) ezetimibe [From Vytorin] Adverse Reaction (Verified 10/10/16 00:21) simvastatin [From Vytorin] Adverse Reaction (Verified 10/10/16 00:21) MEDICATION ON HOLD: HOLD COUMADIN TONIGHT Friday11/27/18. RESUME COUMADIN 2 MG PO EVERY EVENING STARTING Friday11/28/18. DISCONTINUED MEDICATIONS: NONE NEW PRESCRIPTIONS: TUSSIONEX 5 ML BY MOUTH TWICE A DAY NEEDED FOR COUGH PREDNISONE 10 MG ONE TABLET BY MOUTH (TAKE WITH FOOD) TWICE A DAY FOR FIVE DAYS PRO AIR INHALER 2 PUFFS EVERY 6 HOURS SMOKING: NON SMOKER DISEASE SPECIFIC EDUCATION: PNEUMONITIS BRONCHITIS COUMADIN PREDNISONE TUSSIONEX FOLLOW UP APPOINTMENT DIET: REGULAR TOLERATED ACTIVITY: PLENTY OF REST, GRADUALLY INCREASE ABLE HOSPITAL COURSE: This is a white female who was a direct admit from out office. She has been having bronchitis for the past several weeks. She was treated with a Z-pack and also treated with Keflex. She presented to our office which she is very weak, she was feeling more short of breath and she had audible wheezing. She was admitted for acute pneumonitis and shortness of breath. Chest x-ray was normal showed no acute process. She did have a barky, croupy sort of cough. She has a history of COPD and she also has a history of atrial fibrillation and is on Coumadin. She was placed on Rocephin 1mg IV daily along with Solu-Medrol 125mg IV Q 8 hours and started on Xopenex NEBS TID scheduled along with Pulmicort NEBS at night. INR remained therapeutic during her stay. She was slightly hypokalemic today. We will give her 40meq of Prednisone prior to discharge. Dr. Henley did an echo due to shortness of breath and her history of atrial fibrillation which was relatively unchanged. I am going to send her home with Prednisone 10mg BID for the next 5 days along with an Albuterol inhaler. I wish for her to use it at least three times a day until her cough resolved. INR was 3.3 today. She is instructed to hold her Coumadin tonight and we will recheck her INR when she follows up with us next week. She is to stay in the house out of the heat. Continue with increased rest and fluids. We will followup with her next week in the office. TIME SPENT: More than 60 minutes. [facility]
== END 2018-11-27 12:45 | disposition home or self-care (01) | DRG 195 ==
LOC: MEDSURG B 12:35
PROVIDERS: ADMIT Internal Medicine; ATTEND Internal Medicine

== ENCOUNTER 2020-07-29 11:20 | Inpatient (IN) ==
--- NOTE | 2020-07-29 12:09 | ED.PDOC ---
Medical Screening Exam General Information Time Seen by Physician*: 13:30 Mode of Arrival: Wheelchair Information Source: Patient and Family Primary Care Physician: Generalized weakness. Denies nausea, vomiting or diarrhea Pos syuria History Chief Complaint: Weakness Stated Complaint: States not feeling well last week. Dry Cough Onset/Duration: 5-6 days Symptoms Are: Worse Timing: Intermittent Severity: Moderate Review Of Systems Constitutional: Severe pain CV: Reports None Respiratory: Reports None GI: Reports None and Vomiting w/in 12 hours : Reports None (dysuria) Musculoskeletal: Reports None Neuro: Reports None Examination Findings Other Examination Findings: AAO X 3 NAD Visit Related to : No PFSH Medical History (Updated 08/01/20 @ 09:36 by KAM MARSH DO) Breast cancer Family History BROTHER CHF (congestive heart failure) MATERNAL GRANDMOTHER Cerebral vascular accident Mother Cerebral vascular accident FATHER Cerebral vascular accident Social History (Updated 07/29/20 @ 16:25 by LINDA COOK) Alcohol intake: never Seatbelt use: always Current diet type/program: regular Well-balanced diet: daily Caffeine: Yes Surgical History (Updated 07/29/20 @ 16:21 by LINDA COOK) H/O thyroidectomy H/O: hysterectomy History of mastectomy Physical Exam Physical Exam Appearance: Reports Ill-appearing and Well-nourished Ill-appearing: Mild Pain Distress: Not Applicable Eyes: Reports ESTHELA, EOMI and Conjunctiva clear ENT: Reports Ears normal, Nose normal and Oropharynx normal Neck: Supple Respiratory: Reports Airway patent and Breath sounds clear Cardiovascular: Reports RRR, Pulses normal, No rub and No murmur GI/: Reports Soft, Nontender, No masses, Bowel sounds normal and No Organomegaly Musculoskeletal: Reports Normal strength, ROM intact, No edema and No calf tenderness Skin: Reports Warm, Dry and Normal color Neurological: Reports Sensation intact, Motor intact, Reflexes intact, Cranial nerves intact, Alert and Oriented Psychiatric: Reports Affect appropriate and Mood appropriate Interpretation Radiology Interpretation Radiology Interpretation By: Radiologist Exam Interpreted: CXR (RML pneumonia) Re-Evaluation Re-Evaluation Time of Re-Evaluation: 15:00 Status: Unchanged Vital Signs Stable: Yes Additional Comments: advised she was briefly exposed to her grandsons girlfriend last week end who was later dx with COVID Critical Care Note Critical Care Note Total Critical Care Time (mins): 30 Course Course Hematology/Chemistry: 08/01/20 05:25 08/01/20 05:25 Orders, Labs, Meds: Lab Review 07/29/20 07/29/20 07/29/20 12:19 12:19 13:32 WBC 6.71 RBC 4.27 Hgb 13.1 Hct 38.0 MCV 89.0 MCH 30.7 MCHC 34.5 RDW Coeff of [place] 13.0 Plt Count 177 Immature Gran % (Auto) 0.3 Neut % (Auto) 73.0 Lymph % (Auto) 17.4 [place] % (Auto) 9.1 Eos % (Auto) 0.1 Baso % (Auto) 0.1 Neut # (Auto) 4.9 Lymph # (Auto) 1.2 [place] # (Auto) 0.6 Eos # (Auto) 0.0 Baso # (Auto) 0.0 Immature Gran # (Auto) 0.0 Sodium 133.4 L Potassium 4.10 Chloride 102.7 Carbon Dioxide 21.7 L Anion Gap 13.10 BUN 24.9 H Creatinine 1.62 H Estimated GFR (MDRD) 30.00 BUN/Creatinine Ratio 15.37 Glucose 118.9 H Uric Acid 6.15 Calcium 7.63 L Magnesium 1.97 Total Bilirubin 0.64 AST 32.9 ALT 15.0 Alkaline Phosphatase 51.1 L Total Protein 6.53 Albumin 3.59 Globulin 2.94 Albumin/Globulin Ratio 1.22 Urine Color Yellow Urine Clarity Clear Urine pH 5.0 Ur Specific [place] 1.025 Urine Protein 3+ H Urine Glucose (UA) Negative Urine Ketones Negative Urine Blood Trace-intact H Urine Nitrite Negative Urine Bilirubin Negative Urine Urobilinogen 0.2 Ur Leukocyte Esterase Trace H Urine Microscopic RBC 0-2 Urine Microscopic WBC 2-5 Ur Squamous Epith Cells 0-2 Amorphous Sediment 1+ Urine Bacteria Trace Orders Category Date Time Status EKG-(ED ONLY) Stat CARDIO 07/29/20 12:09 Completed CBC W/ AUTO DIFF Stat LAB 07/29/20 12:19 Completed CMP [COMPREHENSIVE METABOLIC PANEL] Stat LAB 07/29/20 12:19 Completed MAGNESIUM Stat LAB 07/29/20 12:19 Completed RESPIRATORY PANEL 2.1 (PCR) Stat LAB 07/29/20 13:45 Completed UA [URINALYSIS C & S IF INDICATED] Stat LAB 07/29/20 13:32 Completed URIC ACID Stat LAB 07/29/20 12:19 Completed CHEST, 1V AP ONLY Stat RADS 07/29/20 12:09 Completed Medications Generic Name Dose Route Start Last Admin Trade Name Freq PRN Reason Stop Dose Admin Acetaminophen 650 mg 07/29/20 13:46 Acetaminophen 325 Mg Tablet PO Q4H PRN Pain Albuterol Sulfate 2 puff 07/30/20 14:00 08/01/20 04:55 Albuterol Sulfate (Ventolin Hfa) 18 Gm 1 Puff With Spacer IH 2 puff RTTID RAMY Administration Alprazolam 0.25 mg 07/29/20 18:01 07/31/20 21:04 Alprazolam 0.25 Mg Tablet PO 0.25 mg DAILY PRN Administration Anxiety Amlodipine Besylate 5 mg 07/30/20 09:00 08/01/20 08:54 Amlodipine Besylate 5 Mg Tablet PO 5 mg DAILY RAMY Administration Atropine Sulfate 0.5 mg 07/29/20 18:27 Atropine Sulfate Inj 1 Mg/10 Ml Disp.Syrin IVP ONCE PRN Symptomatic Bradycardia Azithromycin 500 mg 07/30/20 10:00 08/01/20 08:53 Azithromycin 250 Mg Tablet PO 08/02/20 09:59 500 mg DAILY RAMY Administration Budesonide/Formoterol Fumarate 2 puff 07/30/20 10:00 07/31/20 20:24 Budesonide/Formoterol Fumarate 160/4.5 Mcg Inhaler IH 2 puff BID RAMY Administration Cholecalciferol 5,000 unit 07/30/20 14:00 08/01/20 08:53 Cholecalciferol (Vitamin D3) 1,000 Unit (25 Mcg) Tablet PO 5,000 unit DAILY RAMY Administration Dexamethasone Sodium Phosphate 6 mg 07/30/20 09:00 08/01/20 08:52 Dexamethasone Sod Phos 10 Mg/Ml Inj IVP 6 mg DAILY RAMY Administration Famotidine 20 mg 07/31/20 09:00 08/01/20 05:37 Famotidine 20 Mg Tablet PO 20 mg QDAC RAMY Administration CEFTRIAXONE/D5W 1 GM PREMIX 1 gm in 50 mls @ 75 mls/hr 07/29/20 15:00 08/01/20 08:52 Rocephin 1 Gm/50 Ml D5w IV 08/01/20 14:59 75 mls/hr DAILY RAMY Administration REMDESIVIR SOLUTION 100 mg/ 270 mls @ 270 mls/hr 07/31/20 12:00 07/31/20 12:04 Sodium Chloride IV 08/03/20 15:00 270 mls/hr DAILY@1200 RAMY Administration Levothyroxine Sodium 50 mcg 07/31/20 06:30 08/01/20 05:37 Levothyroxine Sodium 50 Mcg Tablet PO 50 mcg QDAC RAMY Administration Levothyroxine Sodium 100 mcg 07/31/20 06:30 08/01/20 05:38 Levothyroxine Sodium 100 Mcg Tablet PO 100 mcg QDAC RAMY Administration Losartan Potassium 100 mg 07/30/20 09:00 08/01/20 08:54 Losartan Potassium 100 Mg Tablet PO 100 mg DAILY RAMY Administration Nitroglycerin 0.4 mg 07/29/20 18:27 Nitroglycerin 0.4 Mg Tab.Subl SL Q5MIN X 3 DOSES PRN Chest Pain Ondansetron HCl 4 mg 07/29/20 14:41 Ondansetron Hcl/Pf 4 Mg/2 Ml Sdv IVP Q6H PRN Nausea / Vomiting Rosuvastatin Calcium 20 mg 07/30/20 09:00 07/31/20 08:44 Rosuvastatin Calcium 10 Mg Tablet PO 20 mg [id number] RAMY Administration Sodium Chloride 1 syr 07/29/20 13:46 08/01/20 08:55 0.9% Sodium Chloride 10 Ml Disp.Syrin IVF 1 syr PRN PRN Administration To flush IV Sodium Chloride 1 syr 07/29/20 21:00 08/01/20 05:37 0.9% Sodium Chloride 10 Ml Disp.Syrin IVF 1 syr Q8HR RAMY Administration Sotalol HCl 80 mg 07/29/20 21:00 08/01/20 08:54 Sotalol Hcl 80 Mg Tablet PO 80 mg BID RAMY Administration Warfarin Sodium 4 mg 07/30/20 17:00 07/30/20 16:58 Warfarin Sodium 2 Mg Tablet PO 4 mg [id number] [facility] Administration Warfarin Sodium 2 mg 07/29/20 19:09 07/29/20 20:23 Warfarin Sodium 2 Mg Tablet PO 2 mg [id number] RAMY Administration Zinc Sulfate 220 mg 07/30/20 14:00 08/01/20 08:54 Zinc Sulfate 220 Mg Capsule PO 220 mg DAILY RAMY Administration Discontinued Medications Generic Name Dose Route Start Last Admin Trade Name Liliane PRN Reason Stop Dose Admin Albuterol Sulfate 2 puff 07/29/20 13:43 07/29/20 13:57 Albuterol Sulfate (Ventolin Hfa) 18 Gm 1 Puff With Spacer IH 07/29/20 13:44 2 puff ONCE ONE Administration Albuterol Sulfate 2 puff 07/29/20 20:00 07/30/20 05:08 Albuterol Sulfate (Ventolin Hfa) 18 Gm 1 Puff With Spacer IH 2 puff RTTID RAMY Administration Sodium Chloride 1,000 mls @ 500 mls/hr 07/29/20 13:46 07/29/20 14:13 Sodium Chloride IV 07/29/20 15:45 500 mls/hr BOLUS STA Administration REMDESIVIR SOLUTION 200 mg/ 290 mls @ 125 mls/hr 07/30/20 09:00 07/30/20 09:06 Sodium Chloride IV 07/30/20 11:19 Not Given ONCE ONE REMDESIVIR SOLUTION 200 mg/ 290 mls @ 145 mls/hr 07/30/20 09:30 07/30/20 10:57 Sodium Chloride IV 07/30/20 11:29 145 mls/hr ONCE ONE Administration Levothyroxine Sodium 150 mcg 07/30/20 06:30 07/30/20 05:46 Levothyroxine Sodium 100 Mcg Tablet PO 150 mcg QDAC RAMY Administration Methylprednisolone Sodium Succinate 125 mg 07/29/20 14:00 07/30/20 18:32 Methylprednisolone Sod Succ/Pf 125 Mg/2 Ml Vial IVP Not Given Q8HR [facility] Non-Formulary Medication 150 mcg 07/30/20 06:00 Levothyroxine [Synthroid] PO DAILY [facility] Rosuvastatin Calcium 20 mg 07/29/20 18:30 Rosuvastatin Calcium 10 Mg Tablet PO 4XW RAMY Warfarin Sodium 2 mg 07/29/20 19:30 Warfarin Sodium 2 Mg Tablet PO DIRECTED [facility] Vital Signs: Temp Pulse Resp BP Pulse Ox 07/29/20 11:21 97.9 F 98 H 16 114/77 94 L Discharge Plan Discharge Patient Disposition: PLACED OBSERVATION Discharge Problem: Pneumonia, Dehydration, Weakness, COVID-19 ED Provider: KAM MARSH Physician Progress Note: Explained findings to patient and her daughter present with her . Recommended admission. Have discussed it DrPatel who advised he is out of town until next Friday. Hospitalist will admit. Explained treatment to another daughter who called inquiring about her status
[2020-07-29 12:21] LABS: BASOPHILS % (AUTO) 0.1 % (0.0-3.0); EOSINOPHILS % (AUTO) 0.1 % (0.0-7.0); HEMOGLOBIN 13.1 g/dl (12.0-16.0); IMMATURE GRANULOCYTE % (AUTO) 0.3 % (0.0-5.0); LYMPHOCYTES # (AUTO) 1.2 K/uL (0.60-3.4); LYMPHOCYTES % (AUTO) 17.4 (10.0-50.0); MEAN CORPUSCULAR HEMOGLOBIN 30.7 pg (27.0-31.0); MEAN CORPUSCULAR HGB CONC 34.5 (31.8-35.4); MONOCYTES # (AUTO) 0.6 K/uL (0.4-2.0); MONOCYTES % (AUTO) 9.1 (0-10); NEUTROPHILS # (AUTO) 4.9 K/ul (2.0-6.9); PLATELET COUNT 177 10^3/uL (140-440); RED BLOOD COUNT 4.27 10^6/ul (4.20-5.40); WHITE BLOOD COUNT 6.71 K/ul (4.6-10.2)
[2020-07-29 12:35] LABS: ALBUMIN 3.59 g/dL (3.5-5.0); ALKALINE PHOSPHATASE 51.1 U/L (53-141); ASPARTATE AMINO TRANSFERASE 32.9 U/L (14-36); BILIRUBIN,TOTAL 0.64 mg/dL (0.2-1.3); BLOOD UREA NITROGEN 24.9 mg/dL (7-17); CALCIUM 7.63 mg/dL (8.4-10.2); CARBON DIOXIDE 21.7 mmol/L (22-30.0); CHLORIDE 102.7 mmol/L (98-107); CREATININE 1.62 mg/dL (0.60-1.30); GLUCOSE 118.9 mg/dL (74-106); MAGNESIUM 1.97 mg/dL (1.6-2.3); POTASSIUM 4.1 mmol/L (3.5-5.1); SODIUM 133.4 mmol/L (134.5-145); TOTAL PROTEIN 6.53 g/dL (6.3-8.2); URIC ACID 6.15 mg/dL (2.5-6.2)
--- NOTE | 2020-07-29 12:40 | DI ---
EXAM: Single view of the chest. History: Weakness. Comparison: Chest radiograph 11/26/2018 Findings: Heart size is normal. Subtle infiltrate within the right mid lung. No appreciable pleura l fluid and no pneumothorax. Atherosclerotic vascular calcifications. Surgical clips are seen withi n the right axilla. Degenerative changes of the right glenohumeral joint. Impression: Subtle infiltrate within the right mid lung suspicious for pneumonia.
[2020-07-29 13:38] LABS: BILIRUBIN,URINE Negative (NEGATIVE); CLARITY,URINE Clear (CLEAR); COLOR,URINE Yellow (YELLOW); GLUCOSE, URINE (UA) Negative (NEGATIVE); KETONES,URINE Negative (NEGATIVE); LEUKOCYTE ESTERASE ,URINE Trace (NEGATIVE); NITRITE,URINE Negative (NEGATIVE); PROTEIN,URINE 3+ (NEGATIVE); URINE, BLOOD Trace-intact (NEGATIVE); UROBILINOGEN,URINE 0.2 (0.2)
[2020-07-29 13:43] LABS: AMORPHOUS SEDIMENT,UR 1+ (NOT PRESENT); BACTERIA,URINE TRACE (NOT PRESENT); SQUAMOUS EPITHELIAL CELL,UR 0-2 (0-5); URINE RBC, MICROSCOPIC 0-2 (0-2)
[2020-07-29] MEDS ORDERED: VENTOLIN HFA (PER PUFF-WITH SPACER) IH ONE (13:43)
[2020-07-29] MEDS ORDERED: SODIUM CHLORIDE 1,000 ML IV STA (13:46)
[2020-07-29] MEDS ORDERED: TYLENOL PO PRN (13:46)
[2020-07-29 13:52] LABS: BORDETELLA PARAPERTUSSIS (PCR) NOT DETECTED (NOT DETECT); BORDETELLA PERTUSSIS (PCR) NOT DETECTED (NOT DETECT); CHLAMYDIA PNEUMONIAE (PCR) NOT DETECTED (NOT DETECT); CORONAVIRUS 229E (PCR) NOT DETECTED (NOT DETECT); CORONAVIRUS HKU1 (PCR) NOT DETECTED (NOT DETECT); CORONAVIRUS NL63 (PCR) NOT DETECTED (NOT DETECT); CORONAVIRUS OC43 (PCR) NOT DETECTED (NOT DETECT); HUMAN METAPNEUMOVIRUS (PCR) NOT DETECTED (NOT DETECT); HUMAN RHINOVIRUS/ENTEROV (PCR) NOT DETECTED (NOT DETECT); INFLUENZA B (PCR) NOT DETECTED (NOT DETECT); MYCOPLASMA PNEUMONIAE (PCR) NOT DETECTED (NOT DETECT); PARAINFLUENZA VIRUS 1 (PCR) NOT DETECTED (NOT DETECT); PARAINFLUENZA VIRUS 2 (PCR) NOT DETECTED (NOT DETECT); PARAINFLUENZA VIRUS 3 (PCR) NOT DETECTED (NOT DETECT); PARAINFLUENZA VIRUS 4 (PCR) NOT DETECTED (NOT DETECT); RESPIRATORY SYNCYTIAL V (PCR) NOT DETECTED (NOT DETECT)
[2020-07-29] MEDS: SOLU-MEDROL 125 MG IVP SCH ×2 (14:13→20:22)
[2020-07-29 14:41] LABS: ADENOVIRUS (PCR) NOT DETECTED (NOT DETECT); SARS_COV_2 (PCR) DETECTED (NOT DETECT)
[2020-07-29] MEDS ORDERED: ZOFRAN 4 MG/2 ML IVP PRN (14:41)
[2020-07-29 14:53] LABS: ABG O2 HGB 93.2 % (95-100); ABG PH 7.45 (7.35-7.45); BEecf -3.8 (-2.0-3.0); COHb 1.6 (0.5-1.5); HCO3 20.2 (21-28); MetHb 1.6 (0-1.5); TCO2 21.1 (19-24); sO2 93.9 % (94-98); tHb 12.2 g/dl (11.7-17.4)
[2020-07-29] MEDS: ROCEPHIN 1 GM/50 ML D5W 1 GM/50 ML BAG IV SCH (15:05)
[2020-07-29 16:19] VITALS: BMI 28.7
[2020-07-29] MEDS ORDERED: ATROPINE SULFATE PFS IVP PRN (18:27)
[2020-07-29] MEDS ORDERED: NITROSTAT SL PRN (18:27)
[2020-07-29] MEDS ORDERED: CRESTOR PO SCH (18:30)
[2020-07-29 18:51] LABS: PROTHROMBIN TIME 23.9 SEC (9.3-11.0)
[2020-07-29] MEDS ORDERED: COUMADIN PO SCH ×2 (19:09→19:30)
[2020-07-29] MEDS: VENTOLIN HFA (PER PUFF-WITH SPACER) IH SCH (19:16)
[2020-07-29] MEDS: BETAPACE PO SCH (20:22)
--- NOTE | 2020-07-30 04:30 | PCM ---
Chief Complaint Chief Complaint: Weakness, COVID-19 infection History of Present Illness History of Present Illness: Patient was admitted yesterday after one week of feeling weak not eating much and with a productive cough. She was diagnosed with pneumonia and tuned out to have COVID -19. She was placed on IV antibiotics Steroids and Remdesivir. She was already on Warfarin which was continued. She denies any complaints this morning. Review of Systems Constitutional: Reports No symptoms Eyes: Reports No symptoms Ears: Reports No symptoms Nose: Reports No symptoms Throat: Reports No symptoms Mouth: Reports No symptoms Respiratory: Reports Cough Cardiovascular: Reports No symptoms Gastrointestinal: Reports No symptoms Genitourinary: Reports No symptoms Neurological: Reports No symptoms Musculoskeletal: Reports No symptoms Skin: Reports No symptoms Immunology: Reports No symptoms Hematology: Reports No symptoms Endocrine: Reports No symptoms Psychiatric: Reports Anxiety Allergies Allergies Allergy/AdvReac Type Severity Reaction Status Date / Time codeine AdvReac Verified 07/29/20 11:35 ezetimibe [From Vytorin] AdvReac Verified 07/29/20 11:35 simvastatin [From Vytorin] AdvReac Verified 07/29/20 11:35 PFSH Medical History (Updated 07/30/20 @ 16:14 by NOE BHARDWAJ MD) Breast cancer Surgical History (Updated 07/29/20 @ 16:21 by LINDA COOK) H/O thyroidectomy H/O: hysterectomy History of mastectomy Family History (Updated 07/29/20 @ 16:23 by LINDA COOK) BROTHER CHF (congestive heart failure) MATERNAL GRANDMOTHER Cerebral vascular accident Mother Cerebral vascular accident FATHER Cerebral vascular accident Social History (Updated 07/29/20 @ 16:25 by LINDA COOK) Alcohol intake: never Seatbelt use: always Current diet type/program: regular Well-balanced diet: daily Caffeine: Yes Medications Medications: Medications Generic Name Dose Route Start Last Admin Trade Name Freq PRN Reason Stop Dose Admin Acetaminophen 650 mg 07/29/20 13:46 Acetaminophen 325 Mg Tablet PO Q4H PRN Pain Albuterol Sulfate 2 puff 07/29/20 20:00 07/29/20 19:16 Albuterol Sulfate (Ventolin Hfa) 18 Gm 1 Puff With Spacer IH 2 puff RTTID RAMY Administration Alprazolam 0.25 mg 07/29/20 18:01 Alprazolam 0.25 Mg Tablet PO DAILY PRN Anxiety Amlodipine Besylate 5 mg 07/30/20 09:00 Amlodipine Besylate 5 Mg Tablet PO DAILY RAMY Atropine Sulfate 0.5 mg 07/29/20 18:27 Atropine Sulfate Inj 1 Mg/10 Ml Disp.Syrin IVP ONCE PRN Symptomatic Bradycardia Dexamethasone Sodium Phosphate 6 mg 07/30/20 09:00 Dexamethasone Sod Phos 10 Mg/Ml Inj IVP DAILY RAMY CEFTRIAXONE/D5W 1 GM PREMIX 1 gm in 50 mls @ 75 mls/hr 07/29/20 15:00 07/29/20 15:05 Rocephin 1 Gm/50 Ml D5w IV 08/01/20 14:59 75 mls/hr DAILY RAMY Administration REMDESIVIR SOLUTION 200 mg/ 290 mls @ 125 mls/hr 07/29/20 19:41 Sodium Chloride IV 07/29/20 22:00 ONCE ONE REMDESIVIR SOLUTION 100 mg/ 270 mls @ 250 mls/hr 07/30/20 09:00 Sodium Chloride IV DAILY RAYM Levothyroxine Sodium 150 mcg 07/30/20 06:30 Levothyroxine Sodium 100 Mcg Tablet PO QDAC RAMY Losartan Potassium 100 mg 07/30/20 09:00 Losartan Potassium 100 Mg Tablet PO DAILY RAMY Methylprednisolone Sodium Succinate 125 mg 07/29/20 14:00 07/29/20 20:22 Methylprednisolone Sod Succ/Pf 125 Mg/2 Ml Vial IVP 125 mg Q8HR RAMY Administration Nitroglycerin 0.4 mg 07/29/20 18:27 Nitroglycerin 0.4 Mg Tab.Subl SL Q5MIN X 3 DOSES PRN Chest Pain Ondansetron HCl 4 mg 07/29/20 14:41 Ondansetron Hcl/Pf 4 Mg/2 Ml Sdv IVP Q6H PRN Nausea / Vomiting Rosuvastatin Calcium 20 mg 07/30/20 09:00 Rosuvastatin Calcium 10 Mg Tablet PO SuMoThFr RAMY Sodium Chloride 1 syr 07/29/20 13:46 07/29/20 14:13 0.9% Sodium Chloride 10 Ml Disp.Syrin IVF 1 syr PRN PRN Administration To flush IV Sodium Chloride 1 syr 07/29/20 21:00 07/29/20 20:25 0.9% Sodium Chloride 10 Ml Disp.Syrin IVF 1 syr Q8HR RAMY Administration Sotalol HCl 80 mg 07/29/20 21:00 07/29/20 20:22 Sotalol Hcl 80 Mg Tablet PO 80 mg BID [facility] Administration Warfarin Sodium 4 mg 07/30/20 17:00 Warfarin Sodium 2 Mg Tablet PO Garrido@1700 [facility] Warfarin Sodium 2 mg 07/29/20 19:09 07/29/20 20:23 Warfarin Sodium 2 Mg Tablet PO 2 mg MoTuWeThFrSa@1700 [facility] Administration Body Composition Height: 5 ft 3 in Weight: 73.482 kg Body Mass Index (BMI): 28.7 Vital Signs Temperature: 98.2 F Pulse Rate: 60 Respiratory Rate: 16 Blood Pressure: 129/71 O2 Sat by Pulse Oximetry: 95 Physical Examination Appearance: Reports Well-appearing Pain Distress: None Eyes: Reports Conjunctiva clear ENT: Reports Nose normal Neck: Not Examined Respiratory: Reports Airway patent and Crackles (on the right base) Cardiovascular: Reports RRR, Pulses normal, No rub and Murmur (grate II/) GI/: Reports Soft and Nontender Musculoskeletal: Reports Normal strength and ROM intact Skin: Reports Warm and Dry Neurological: Reports Motor intact, Alert and Oriented Psychiatric: Reports Anxious Lab/Tests/Diagnostic Imaging Lab/Tests/Diagnostic Imaging: Lab Review 07/29/20 07/29/20 07/29/20 12:19 12:19 13:32 WBC 6.71 RBC 4.27 Hgb 13.1 Hct 38.0 MCV 89.0 MCH 30.7 MCHC 34.5 RDW Coeff of Hawa 13.0 Plt Count 177 Immature Gran % (Auto) 0.3 Neut % (Auto) 73.0 Lymph % (Auto) 17.4 Kendall % (Auto) 9.1 Eos % (Auto) 0.1 Baso % (Auto) 0.1 Neut # (Auto) 4.9 Lymph # (Auto) 1.2 Kendall # (Auto) 0.6 Eos # (Auto) 0.0 Baso # (Auto) 0.0 Immature Gran # (Auto) 0.0 PT INR Puncture Site Base Excess O2 Saturation ABG pH ABG pCO2 ABG pO2 ABG HCO3 ABG Total CO2 Stephon Test Hemoglobin Oxyhemoglobin Carboxyhemoglobin Total Hemoglobin FiO2 % Sodium 133.4 L Potassium 4.10 Chloride 102.7 Carbon Dioxide 21.7 L Anion Gap 13.10 BUN 24.9 H Creatinine 1.62 H Estimated GFR (MDRD) 30.00 BUN/Creatinine Ratio 15.37 Glucose 118.9 H Uric Acid 6.15 Calcium 7.63 L Magnesium 1.97 Total Bilirubin 0.64 AST 32.9 ALT 15.0 Alkaline Phosphatase 51.1 L Total Protein 6.53 Albumin 3.59 Globulin 2.94 Albumin/Globulin Ratio 1.22 Urine Color Yellow Urine Clarity Clear Urine pH 5.0 Ur Specific Ismay 1.025 Urine Protein 3+ H Urine Glucose (UA) Negative Urine Ketones Negative Urine Blood Trace-intact H Urine Nitrite Negative Urine Bilirubin Negative Urine Urobilinogen 0.2 Ur Leukocyte Esterase Trace H Urine Microscopic RBC 0-2 Urine Microscopic WBC 2-5 Ur Squamous Epith Cells 0-2 Amorphous Sediment 1+ Urine Bacteria Trace Adenovirus (PCR) B. pertussis DNA (PCR) B.parapertussis DNA PCR C. pneumoniae DNA (PCR) Coronavirus OC43 (PCR) Coronavirus HKU1 (PCR) Coronavirus 229E (PCR) Coronavirus NL63 (PCR) Human Metapneumovir PCR Influenza Type A (PCR) Influenza B (RT-PCR) M. pneumoniae (PCR) Parainfluenza 1 (PCR) Parainfluenza 2 (PCR) Parainfluenza 3 (PCR) Parainfluenza 4 (PCR) RSV (PCR) Entero/Rhino (PCR) SARS-CoV-2 (PCR) 07/29/20 07/29/20 07/29/20 13:45 14:45 17:50 WBC RBC Hgb Hct MCV MCH MCHC RDW Coeff of Hawa Plt Count Immature Gran % (Auto) Neut % (Auto) Lymph % (Auto) Kendall % (Auto) Eos % (Auto) Baso % (Auto) Neut # (Auto) Lymph # (Auto) Kendall # (Auto) Eos # (Auto) Baso # (Auto) Immature Gran # (Auto) PT 23.9 H INR 2.23 Puncture Site Rr Base Excess -3.8 L O2 Saturation 93.9 L ABG pH 7.45 ABG pCO2 29.0 L ABG pO2 67.0 L ABG HCO3 20.2 L ABG Total CO2 21.1 Stephon Test Y Hemoglobin 1.6 H Oxyhemoglobin 93.2 L Carboxyhemoglobin 1.6 H Total Hemoglobin 12.2 FiO2 % 21.0 Sodium Potassium Chloride Carbon Dioxide Anion Gap BUN Creatinine Estimated GFR (MDRD) BUN/Creatinine Ratio Glucose Uric Acid Calcium Magnesium Total Bilirubin AST ALT Alkaline Phosphatase Total Protein Albumin Globulin Albumin/Globulin Ratio Urine Color Urine Clarity Urine pH Ur Specific Ismay Urine Protein Urine Glucose (UA) Urine Ketones Urine Blood Urine Nitrite Urine Bilirubin Urine Urobilinogen Ur Leukocyte Esterase Urine Microscopic RBC Urine Microscopic WBC Ur Squamous Epith Cells Amorphous Sediment Urine Bacteria Adenovirus (PCR) Not detected B. pertussis DNA (PCR) Not detected B.parapertussis DNA PCR Not detected C. pneumoniae DNA (PCR) Not detected Coronavirus OC43 (PCR) Not detected Coronavirus HKU1 (PCR) Not detected Coronavirus 229E (PCR) Not detected Coronavirus NL63 (PCR) Not detected Human Metapneumovir PCR Not detected Influenza Type A (PCR) Not detected Influenza B (RT-PCR) Not detected M. pneumoniae (PCR) Not detected Parainfluenza 1 (PCR) Not detected Parainfluenza 2 (PCR) Not detected Parainfluenza 3 (PCR) Not detected Parainfluenza 4 (PCR) Not detected RSV (PCR) Not detected Entero/Rhino (PCR) Not detected SARS-CoV-2 (PCR) Detected H Orders Category Date Time Status PLACE PATIENT OBSERVATION .TO MEDSURG (MONITORED BED ADMISSION 07/29/20 13:43 Active ) ABG DRAW REQUEST Stat CARDIO 07/29/20 14:09 Completed EKG-(ED ONLY) Stat CARDIO 07/29/20 12:09 Completed EKG-(IP & OP ONLY) DAILY CARDIO 07/30/20 06:00 Ordered EKG-(IP & OP ONLY) DAILY CARDIO 07/31/20 06:00 Ordered METERED DOSE INHALATION Routine CARDIO 07/29/20 13:43 Completed OXYGEN Routine CARDIO 07/29/20 18:27 Active ACTIVITY .BR with BRP CARE 07/29/20 18:27 Active CONTINUOUS PULSE OX (NURSING) PULSEOX CARE 07/29/20 18:12 Active INTAKE & OUTPUT Q8HR CARE 07/29/20 14:41 Active IP: INSERT SALINE LOCK ONCE CARE 07/29/20 18:27 Active Notify RT of Treatment ONCE CARE 07/29/20 18:30 Active TELEMETRY MONITORING TELE CARE 07/29/20 13:44 Active VITAL SIGNS Q8HR CARE 07/29/20 14:41 Completed REGULAR DIET DIETARY 07/29/20 Dinner Ordered IV [ED IV/MEDIPORT/POWERPORT] .ONCE EMERGENCY 07/29/20 13:46 Active ABG COOX Stat LAB 07/29/20 14:45 Completed BLOOD CULTURE (ED ONLY) Stat LAB 07/29/20 14:30 Received CBC W/ AUTO DIFF DAILY@0600 LAB 07/30/20 06:00 Ordered CBC W/ AUTO DIFF DAILY@0600 LAB 07/31/20 06:00 Ordered CBC W/ AUTO DIFF Stat LAB 07/29/20 12:19 Completed CMP [COMPREHENSIVE METABOLIC PANEL] Stat LAB 07/29/20 12:19 Completed COMPREHENSIVE METABOLIC PANEL DAILY@0600 LAB 07/30/20 06:00 Ordered COMPREHENSIVE METABOLIC PANEL DAILY@0600 LAB 07/31/20 06:00 Ordered MAGNESIUM Stat LAB 07/29/20 12:19 Completed PT WITH INR DAILY@0600 LAB 07/30/20 06:00 Ordered PT WITH INR DAILY@0600 LAB 07/31/20 06:00 Ordered PT WITH INR DAILY@0600 LAB 08/01/20 06:00 Ordered PT WITH INR Stat LAB 07/29/20 17:50 Completed RESPIRATORY PANEL 2.1 (PCR) Stat LAB 07/29/20 13:45 Completed TROPONIN I DAILY@0600 LAB 07/30/20 06:00 Ordered TROPONIN I DAILY@0600 LAB 07/31/20 06:00 Ordered UA [URINALYSIS C & S IF INDICATED] Stat LAB 07/29/20 13:32 Completed URIC ACID Stat LAB 07/29/20 12:19 Completed 0.9 % Sodium Chloride [Saline Flush] MEDS 07/29/20 13:46 Active 1 syr IVF PRN PRN 0.9 % Sodium Chloride [Saline Flush] MEDS 07/29/20 21:00 Active 1 syr IVF Q8HR Acetaminophen [Tylenol] MEDS 07/29/20 13:46 Active 650 mg PO Q4H PRN Albuterol Inhaler(with Spacer) [Ventolin Hfa (Per Puff- MEDS 07/29/20 13:43 Discontinued with Spacer)] 2 puff IH ONCE ONE Albuterol Inhaler(with Spacer) [Ventolin Hfa (Per Puff- MEDS 07/29/20 20:00 Active with Spacer)] 2 puff IH RTTID Alprazolam [Xanax] MEDS 07/29/20 18:01 Active 0.25 mg PO DAILY PRN Amlodipine Besylate [Norvasc] MEDS 07/30/20 09:00 Active 5 mg PO DAILY Atropine Sulfate Inj [Atropine Sulfate Pfs] MEDS 07/29/20 18:27 Active 0.5 mg IVP ONCE PRN Ceftriaxone/D5w 1 gm Premix [Rocephin 1 gm/50 ml D5w] MEDS 07/29/20 15:00 Active 1 gm in 50 ml IV DAILY Dexamethasone Sod Phosphate [Decadron] MEDS 07/30/20 09:00 Active 6 mg IVP DAILY Levothyroxine Sodium [Synthroid] MEDS 07/30/20 06:30 Active 150 mcg PO QDAC Losartan Potassium [Cozaar] MEDS 07/30/20 09:00 Active 100 mg PO DAILY Methylprednisolone Sod Succ/Pf [Solu-Medrol 125 mg] MEDS 07/29/20 14:00 Active 125 mg IVP Q8HR Nitroglycerin [Nitrostat] MEDS 07/29/20 18:27 Active 0.4 mg SL Q5MIN X 3 DOSES PRN Ondansetron HCl/Pf [Zofran 4 mg/2 ml] MEDS 07/29/20 14:41 Active 4 mg IVP Q6H PRN Remdesivir Solution [Remdesivir] 100 mg MEDS 07/30/20 09:00 Pending 0.9 % Sodium Chloride [Sodium Chloride] 250 ml IV DAILY Remdesivir Solution [Remdesivir] 200 mg MEDS 07/29/20 19:41 Pending 0.9 % Sodium Chloride [Sodium Chloride] 250 ml IV ONCE Rosuvastatin Calcium [Crestor] MEDS 07/29/20 18:30 Discontinued 20 mg PO 4XW Rosuvastatin Calcium [Crestor] MEDS 07/30/20 09:00 Active 20 mg PO SuMoThFr Sodium Chloride 0.9% [Sodium Chloride] 1,000 ml MEDS 07/29/20 13:46 Discontinued IV BOLUS Sotalol HCl [Betapace] MEDS 07/29/20 21:00 Active 80 mg PO BID Warfarin Sodium [Coumadin] MEDS 07/29/20 19:30 Discontinued 2 mg PO DIRECTED Warfarin Sodium [Coumadin] MEDS 07/29/20 19:09 Active 2 mg PO MoTuWeThFrSa@1700 Warfarin Sodium [Coumadin] MEDS 07/30/20 17:00 Active 4 mg PO Garrido@1700 levothyroxine [Synthroid] MEDS 07/30/20 06:00 Discontinued 150 mcg PO DAILY RESUSCITATION STATUS Routine OTHERS 07/29/20 14:41 Completed RESUSCITATION STATUS Routine OTHERS 07/29/20 16:19 Ordered CHEST, 1V AP ONLY Stat RADS 07/29/20 12:[address] CHEST W/O CONTRAST Routine RADS 07/30/20 07:00 Ordered OT CONSULTATION Routine THERAPIES 07/29/20 Ordered PT CONSULT Routine THERAPIES 07/29/20 Ordered Medications Generic Name Dose Route Start Last Admin Trade Name Freq PRN Reason Stop Dose Admin Acetaminophen 650 mg 07/29/20 13:46 Acetaminophen 325 Mg Tablet PO Q4H PRN Pain Albuterol Sulfate 2 puff 07/29/20 20:00 07/29/20 19:16 Albuterol Sulfate (Ventolin Hfa) 18 Gm 1 Puff With Spacer IH 2 puff RTTID RAMY Administration Alprazolam 0.25 mg 07/29/20 18:01 Alprazolam 0.25 Mg Tablet PO DAILY PRN Anxiety Amlodipine Besylate 5 mg 07/30/20 09:00 Amlodipine Besylate 5 Mg Tablet PO DAILY RAMY Atropine Sulfate 0.5 mg 07/29/20 18:27 Atropine Sulfate Inj 1 Mg/10 Ml Disp.Syrin IVP ONCE PRN Symptomatic Bradycardia Dexamethasone Sodium Phosphate 6 mg 07/30/20 09:00 Dexamethasone Sod Phos 10 Mg/Ml Inj IVP DAILY RAMY CEFTRIAXONE/D5W 1 GM PREMIX 1 gm in 50 mls @ 75 mls/hr 07/29/20 15:00 07/29/20 15:05 Rocephin 1 Gm/50 Ml D5w IV 08/01/20 14:59 75 mls/hr DAILY RAMY Administration REMDESIVIR SOLUTION 200 mg/ 290 mls @ 125 mls/hr 07/29/20 19:41 Sodium Chloride IV 07/29/20 22:00 ONCE ONE REMDESIVIR SOLUTION 100 mg/ 270 mls @ 250 mls/hr 07/30/20 09:00 Sodium Chloride IV DAILY RAMY Levothyroxine Sodium 150 mcg 07/30/20 06:30 Levothyroxine Sodium 100 Mcg Tablet PO QDAC RAMY Losartan Potassium 100 mg 07/30/20 09:00 Losartan Potassium 100 Mg Tablet PO DAILY [facility] Methylprednisolone Sodium Succinate 125 mg 07/29/20 14:00 07/29/20 20:22 Methylprednisolone Sod Succ/Pf 125 Mg/2 Ml Vial IVP 125 mg Q8HR RAMY Administration Nitroglycerin 0.4 mg 07/29/20 18:27 Nitroglycerin 0.4 Mg Tab.Subl SL Q5MIN X 3 DOSES PRN Chest Pain Ondansetron HCl 4 mg 07/29/20 14:41 Ondansetron Hcl/Pf 4 Mg/2 Ml Sdv IVP Q6H PRN Nausea / Vomiting Rosuvastatin Calcium 20 mg 07/30/20 09:00 Rosuvastatin Calcium 10 Mg Tablet PO SuMoThFr RAMY Sodium Chloride 1 syr 07/29/20 13:46 07/29/20 14:13 0.9% Sodium Chloride 10 Ml Disp.Syrin IVF 1 syr PRN PRN Administration To flush IV Sodium Chloride 1 syr 07/29/20 21:00 07/29/20 20:25 0.9% Sodium Chloride 10 Ml Disp.Syrin IVF 1 syr Q8HR RAMY Administration Sotalol HCl 80 mg 07/29/20 21:00 07/29/20 20:22 Sotalol Hcl 80 Mg Tablet PO 80 mg BID RAMY Administration Warfarin Sodium 4 mg 07/30/20 17:00 Warfarin Sodium 2 Mg Tablet PO Garrido@1700 RAMY Warfarin Sodium 2 mg 07/29/20 19:09 07/29/20 20:23 Warfarin Sodium 2 Mg Tablet PO 2 mg MoTuWeThFrSa@1700 RAMY Administration Discontinued Medications Generic Name Dose Route Start Last Admin Trade Name Freq PRN Reason Stop Dose Admin Albuterol Sulfate 2 puff 07/29/20 13:43 07/29/20 13:57 Albuterol Sulfate (Ventolin Hfa) 18 Gm 1 Puff With Spacer IH 07/29/20 13:44 2 puff ONCE ONE Administration Sodium Chloride 1,000 mls @ 500 mls/hr 07/29/20 13:46 07/29/20 14:13 Sodium Chloride IV 07/29/20 15:45 500 mls/hr BOLUS STA Administration Non-Formulary Medication 150 mcg 07/30/20 06:00 Levothyroxine [Synthroid] PO DAILY RAMY Rosuvastatin Calcium 20 mg 07/29/20 18:30 Rosuvastatin Calcium 10 Mg Tablet PO 4XW RAMY Warfarin Sodium 2 mg 07/29/20 19:30 Warfarin Sodium 2 Mg Tablet PO DIRECTED RAMY Assessment (1) Pneumonia: Status: Acute Code(s): J18.9 - Pneumonia, unspecified organism SNOMED Code(s): 209280305 Qualifiers: Pneumonia type: due to unspecified organism Laterality: unspecified laterality Lung location: unspecified part of lung Qualified Code(s): J18.9 - Pneumonia, unspecified organism (2) COVID-19 determined by clinical diagnostic criteria: Status: Acute Code(s): U07.1 - COVID-19 SNOMED Code(s): 142789099 (3) Hypertension: Status: Acute Code(s): I10 - Essential (primary) hypertension SNOMED Code(s): 73950189 Qualifiers: Hypertension type: essential hypertension Qualified Code(s): I10 - Essential (primary) hypertension (4) Atrial fib/flutter, transient: Status: Acute SNOMED Code(s): 122813576 (5) Dehydration: Status: Acute Code(s): E86.0 - Dehydration SNOMED Code(s): 63773441 (6) Weakness: Status: Acute Code(s): R53.1 - Weakness SNOMED Code(s): 82952155 Plan Plan: 1. COVID-19 Pneumonia, Stable and is on Remdesivir, steroids and Rocephin. Will get a CT without contrast 2. Acute renal failure due to dehydration getting Gently hydrated if creatinine still elevated. Due to covid cannot over hydrated 3. History of Atrial fibrillation rate controlled on Sotalol and o Anticoagulation 4. Generalized Weakness due to Pneumonia. Encouraged ambulation with staff on the hallway. Get PT/OT next week . Consider Swing bed on discharge. 5. Hypertension blood pressure stable continue current medications. 6. History of Hypothyroidism is on Replacement. 7. Anxiety she is on Xanax prn.
[2020-07-30] MEDS: VENTOLIN HFA (PER PUFF-WITH SPACER) IH SCH ×3 (05:08→19:58)
[2020-07-30 05:17] LABS: BASOPHILS % (AUTO) 0.3 % (0.0-3.0); HEMATOCRIT 37.2 % (37.0-47.0); HEMOGLOBIN 12.8 g/dl (12.0-16.0); IMMATURE GRANULOCYTE % (AUTO) 0.3 % (0.0-5.0); LYMPHOCYTES # (AUTO) 0.7 K/uL (0.60-3.4); LYMPHOCYTES % (AUTO) 21.9 (10.0-50.0); MEAN CORPUSCULAR HEMOGLOBIN 30.7 pg (27.0-31.0); MEAN CORPUSCULAR HGB CONC 34.4 (31.8-35.4); MEAN CORPUSCULAR VOLUME 89.2 fl (81.0-99.0); MONOCYTES # (AUTO) 0.1 K/uL (0.4-2.0); MONOCYTES % (AUTO) 2.2 (0-10); NEUTROPHILS # (AUTO) 2.4 K/ul (2.0-6.9); NEUTROPHILS % (AUTO) 75.3 % (42.2-75.2); PLATELET COUNT 179 10^3/uL (140-440); RDW COEFFICIENT OF VARIATION 12.8 % (11.6-14.8); RED BLOOD COUNT 4.17 10^6/ul (4.20-5.40); WHITE BLOOD COUNT 3.24 K/ul (4.6-10.2)
[2020-07-30 05:27] LABS: PROTHROMBIN TIME 27.1 SEC (9.3-11.0)
[2020-07-30 05:29] LABS: ALANINE AMINOTRANSFERASE 15.3 U/L (0-35); ALBUMIN 3.57 g/dL (3.5-5.0); ALKALINE PHOSPHATASE 49.8 U/L (53-141); ASPARTATE AMINO TRANSFERASE 30.3 U/L (14-36); BILIRUBIN,TOTAL 0.41 mg/dL (0.2-1.3); BLOOD UREA NITROGEN 29.9 mg/dL (7-17); CALCIUM 7.61 mg/dL (8.4-10.2); CARBON DIOXIDE 20.2 mmol/L (22-30.0); CHLORIDE 105.4 mmol/L (98-107); CREATININE 1.35 mg/dL (0.60-1.30); GLUCOSE 148.4 mg/dL (74-106); POTASSIUM 4.52 mmol/L (3.5-5.1); SODIUM 134.5 mmol/L (134.5-145)
[2020-07-30 05:39] LABS: TROPONIN I < 0.012 ng/ml (0.0000-0.120)
[2020-07-30] MEDS: SOLU-MEDROL 125 MG IVP SCH ×2 (05:45→18:32)
[2020-07-30] MEDS ORDERED: LEVOTHYROXINE 150 MCG PO SCH ×2 (06:00)
[2020-07-30] MEDS ORDERED: SYNTHROID PO SCH (06:30)
[2020-07-30] MEDS: BETAPACE PO SCH ×2 (08:39→20:06)
[2020-07-30] MEDS: COZAAR PO SCH (08:39)
[2020-07-30] MEDS: NORVASC PO SCH (08:39)
[2020-07-30] MEDS: ROCEPHIN 1 GM/50 ML D5W 1 GM/50 ML BAG IV SCH (08:39)
[2020-07-30] MEDS: CRESTOR PO SCH (08:40)
[2020-07-30] MEDS ORDERED: LOVENOX SUBCUT SCH (09:00)
[2020-07-30] MEDS ORDERED: VEKLURY 200 MG in SODIUM CHLORIDE 250 ML IV ONE ×2 (09:00→09:30)
[2020-07-30] MEDS: DECADRON IVP SCH (09:56)
--- NOTE | 2020-07-30 10:24 | CT ---
EXAM: CT scan of the chest without contrast HISTORY: COVID-19, pneumonia TECHNIQUE: Helical imaging of the chest was performed without contrast. 5 mm thin axial images and coronal and sagittal reconstructions were provided for interpretation. FINDINGS: Patchy ground-glass opacities are seen within the upper lobes bilaterally as well as withi n the lower lobes of the lungs bilaterally. There is no consolidation. The heart is normal size. T here is atherosclerotic calcification of the thoracic aorta and coronary arteries. No lytic or blast ic lesions are seen within the osseous structures. There has been previous right mastectomy. Postop erative changes are seen within the right axilla. IMPRESSION: Patchy ground-glass opacities are seen throughout the lungs bilaterally compatible with the patients history of COVID-19 infection versus atypical pneumonia.. All CT scans are performed using dose optimization techniques as appropriate to the performed exam an d include at least one of the following: Automated exposure control, adjustment of the mA and/or kV according t o size, and the use of iterative reconstruction technique.
[2020-07-30] MEDS: ZITHROMAX PO SCH (10:57)
[2020-07-30] MEDS: XANAX PO PRN (10:57)
[2020-07-30] MEDS: SYMBICORT 160-4.5 MCG INHALER IH SCH ×2 (10:57→20:05)
[2020-07-30] MEDS: ZINC-220 PO SCH (15:04)
[2020-07-30] MEDS: VITAMIN D PO SCH (15:04)
[2020-07-30] MEDS ORDERED: PEPCID PO SCH (17:00)
[2020-07-30] MEDS ORDERED: COUMADIN PO SCH (17:00)
[2020-07-31 04:58] LABS: BASOPHILS % (AUTO) 0.1 % (0.0-3.0); HEMATOCRIT 34.1 % (37.0-47.0); HEMOGLOBIN 11.8 g/dl (12.0-16.0); IMMATURE GRANULOCYTE # (AUTO) 0.1 (0.0-1.0); IMMATURE GRANULOCYTE % (AUTO) 0.7 % (0.0-5.0); LYMPHOCYTES # (AUTO) 0.9 K/uL (0.60-3.4); LYMPHOCYTES % (AUTO) 6.6 (10.0-50.0); MEAN CORPUSCULAR HEMOGLOBIN 30.6 pg (27.0-31.0); MEAN CORPUSCULAR HGB CONC 34.6 (31.8-35.4); MEAN CORPUSCULAR VOLUME 88.6 fl (81.0-99.0); MONOCYTES # (AUTO) 0.3 K/uL (0.4-2.0); MONOCYTES % (AUTO) 2.3 (0-10); NEUTROPHILS # (AUTO) 12.4 K/ul (2.0-6.9); NEUTROPHILS % (AUTO) 90.3 % (42.2-75.2); PLATELET COUNT 206 10^3/uL (140-440); RDW COEFFICIENT OF VARIATION 12.7 % (11.6-14.8); RED BLOOD COUNT 3.85 10^6/ul (4.20-5.40); WHITE BLOOD COUNT 13.69 K/ul (4.6-10.2)
[2020-07-31 05:11] LABS: ALANINE AMINOTRANSFERASE 21.2 U/L (0-35); ALBUMIN 3.35 g/dL (3.5-5.0); ALKALINE PHOSPHATASE 47.8 U/L (53-141); ASPARTATE AMINO TRANSFERASE 33.1 U/L (14-36); BILIRUBIN,TOTAL 0.24 mg/dL (0.2-1.3); BLOOD UREA NITROGEN 34.8 mg/dL (7-17); CALCIUM 7.47 mg/dL (8.4-10.2); CARBON DIOXIDE 19.4 mmol/L (22-30.0); CHLORIDE 106.1 mmol/L (98-107); CREATININE 1.18 mg/dL (0.60-1.30); GLUCOSE 135.4 mg/dL (74-106); POTASSIUM 4.11 mmol/L (3.5-5.1); SODIUM 134.8 mmol/L (134.5-145); TOTAL PROTEIN 6.19 g/dL (6.3-8.2)
[2020-07-31 05:22] LABS: TROPONIN I < 0.012 ng/ml (0.0000-0.120)
[2020-07-31 05:23] LABS: PROTHROMBIN TIME 47.7 SEC (9.3-11.0)
[2020-07-31] MEDS: SYNTHROID PO SCH ×2 (05:47)
[2020-07-31 05:48] LABS: ABG O2 HGB 94.2 % (95-100); BEecf -5.6 (-2.0-3.0); COHb 2.1 (0.5-1.5); HCO3 19.2 (21-28); MetHb 1.2 (0-1.5); TCO2 20.2 (19-24); sO2 94.9 % (94-98); tHb 12.7 g/dl (11.7-17.4)
[2020-07-31] MEDS: VENTOLIN HFA (PER PUFF-WITH SPACER) IH SCH ×3 (05:50→19:40)
[2020-07-31] MEDS ORDERED: PEPCID PO SCH (07:30)
[2020-07-31] MEDS: ROCEPHIN 1 GM/50 ML D5W 1 GM/50 ML BAG IV SCH (08:38)
[2020-07-31] MEDS: DECADRON IVP SCH (08:39)
[2020-07-31] MEDS: VITAMIN D PO SCH (08:40)
[2020-07-31] MEDS: ZITHROMAX PO SCH (08:40)
[2020-07-31] MEDS: NORVASC PO SCH (08:41)
[2020-07-31] MEDS: COZAAR PO SCH (08:41)
[2020-07-31] MEDS: BETAPACE PO SCH ×2 (08:41→20:20)
[2020-07-31] MEDS: ZINC-220 PO SCH (08:41)
[2020-07-31] MEDS: PEPCID PO SCH (08:42)
[2020-07-31] MEDS: CRESTOR PO SCH (08:44)
[2020-07-31] MEDS: SYMBICORT 160-4.5 MCG INHALER IH SCH ×2 (08:55→20:24)
[2020-07-31] MEDS: VEKLURY 100 MG in SODIUM CHLORIDE 250 ML IV SCH (12:04)
--- NOTE | 2020-07-31 19:04 | PCM.PROG ---
Date Seen by Provider: 07/31/20 Time Seen by Provider: 11:40 Subjective: Pt felt much better. no acute SOB or fever. Objective: Vitals: T=98 F, P=66, R=17, CD=950/60, SPO2=96 HEENT: []wnl Neck: []supple Lungs: []mild posterior crackles. CVS: []rrr Abdomen: []benign Extremities: []no acute abnormality Neurological: []non-focal Skin: []wnl Lab/Tests/Diagnostic Imaging: [] Please see the labs and imaging flow chart. (1) Pneumonia: Status: Acute Code(s): J18.9 - Pneumonia, unspecified organism SNOMED Code(s): 959881400 (2) COVID-19 determined by clinical diagnostic criteria: Status: Acute Code(s): U07.1 - COVID-19 SNOMED Code(s): 215466357 (3) Hypertension: Status: Acute Code(s): I10 - Essential (primary) hypertension SNOMED Code(s): 90145963 (4) Atrial fib/flutter, transient: Status: Acute SNOMED Code(s): 944195644 (5) Dehydration: Status: Acute Code(s): E86.0 - Dehydration SNOMED Code(s): 84240091 (6) Weakness: Status: Acute Code(s): R53.1 - Weakness SNOMED Code(s): 87666815 Plan: Repeat INR on 08/01/2020. Continue treatment regimen.
[2020-07-31] MEDS: XANAX PO PRN (21:04)
[2020-08-01] MEDS: VENTOLIN HFA (PER PUFF-WITH SPACER) IH SCH ×3 (04:55→20:05)
[2020-08-01 05:20] LABS: ABG PH 7.42 (7.35-7.45); BEecf -3.7 (-2.0-3.0); COHb 2.1 (0.5-1.5); HCO3 20.8 (21-28); MetHb 1.3 (0-1.5); TCO2 21.8 (19-24)
[2020-08-01 05:21] LABS: ABG O2 HGB 94.7 % (95-100); sO2 96.1 % (94-98); tHb 11.2 g/dl (11.7-17.4)
[2020-08-01] MEDS: SYNTHROID PO SCH ×2 (05:37→05:38)
[2020-08-01] MEDS: PEPCID PO SCH (05:37)
[2020-08-01 05:55] LABS: BASOPHILS % (AUTO) 0.1 % (0.0-3.0); HEMATOCRIT 33.6 % (37.0-47.0); HEMOGLOBIN 11.6 g/dl (12.0-16.0); IMMATURE GRANULOCYTE # (AUTO) 0.1 (0.0-1.0); IMMATURE GRANULOCYTE % (AUTO) 0.8 % (0.0-5.0); LYMPHOCYTES # (AUTO) 0.8 K/uL (0.60-3.4); LYMPHOCYTES % (AUTO) 6.5 (10.0-50.0); MEAN CORPUSCULAR HEMOGLOBIN 30.8 pg (27.0-31.0); MEAN CORPUSCULAR HGB CONC 34.5 (31.8-35.4); MEAN CORPUSCULAR VOLUME 89.1 fl (81.0-99.0); MONOCYTES # (AUTO) 0.5 K/uL (0.4-2.0); MONOCYTES % (AUTO) 3.8 (0-10); NEUTROPHILS # (AUTO) 11.4 K/ul (2.0-6.9); NEUTROPHILS % (AUTO) 88.8 % (42.2-75.2); PLATELET COUNT 254 10^3/uL (140-440); RED BLOOD COUNT 3.77 10^6/ul (4.20-5.40); WHITE BLOOD COUNT 12.79 K/ul (4.6-10.2)
[2020-08-01 06:03] LABS: ALANINE AMINOTRANSFERASE 24.2 U/L (0-35); ALBUMIN 3.27 g/dL (3.5-5.0); ALKALINE PHOSPHATASE 43.4 U/L (53-141); BILIRUBIN,TOTAL 0.26 mg/dL (0.2-1.3); BLOOD UREA NITROGEN 33.7 mg/dL (7-17); CALCIUM 7.54 mg/dL (8.4-10.2); CARBON DIOXIDE 22.5 mmol/L (22-30.0); CHLORIDE 104.7 mmol/L (98-107); CREATININE 1.08 mg/dL (0.60-1.30); GLUCOSE 119.2 mg/dL (74-106); POTASSIUM 4.18 mmol/L (3.5-5.1); SODIUM 133.6 mmol/L (134.5-145); TOTAL PROTEIN 5.99 g/dL (6.3-8.2)
[2020-08-01 06:20] LABS: PROTHROMBIN TIME 57.2 SEC (9.3-11.0)
[2020-08-01] MEDS: ROCEPHIN 1 GM/50 ML D5W 1 GM/50 ML BAG IV SCH (08:52)
[2020-08-01] MEDS: DECADRON IVP SCH (08:52)
[2020-08-01] MEDS: VITAMIN D PO SCH (08:53)
[2020-08-01] MEDS: ZITHROMAX PO SCH (08:53)
[2020-08-01] MEDS: NORVASC PO SCH (08:54)
[2020-08-01] MEDS: ZINC-220 PO SCH (08:54)
[2020-08-01] MEDS: BETAPACE PO SCH ×2 (08:54→20:19)
[2020-08-01] MEDS: COZAAR PO SCH (08:54)
[2020-08-01] MEDS: SYMBICORT 160-4.5 MCG INHALER IH SCH ×2 (12:58→20:26)
[2020-08-01] MEDS ORDERED: SODIUM CHLORIDE 1,000 ML IV SCH (13:00)
[2020-08-01 14:10] LABS: C-REACTIVE PROTEIN 5 mg/L (0-10)
[2020-08-01 14:10] LABS: C-REACTIVE PROTEIN 4 mg/L (0-10)
[2020-08-02] MEDS: VENTOLIN HFA (PER PUFF-WITH SPACER) IH SCH ×3 (04:55→20:15)
[2020-08-02 05:25] LABS: HEMATOCRIT 34.9 % (37.0-47.0); HEMOGLOBIN 12.2 g/dl (12.0-16.0); IMMATURE GRANULOCYTE # (AUTO) 0.1 (0.0-1.0); IMMATURE GRANULOCYTE % (AUTO) 0.6 % (0.0-5.0); LYMPHOCYTES # (AUTO) 0.8 K/uL (0.60-3.4); LYMPHOCYTES % (AUTO) 8.3 (10.0-50.0); MEAN CORPUSCULAR HEMOGLOBIN 31.2 pg (27.0-31.0); MEAN CORPUSCULAR VOLUME 89.3 fl (81.0-99.0); MONOCYTES # (AUTO) 0.6 K/uL (0.4-2.0); MONOCYTES % (AUTO) 6.3 (0-10); NEUTROPHILS # (AUTO) 7.9 K/ul (2.0-6.9); NEUTROPHILS % (AUTO) 84.8 % (42.2-75.2); PLATELET COUNT 263 10^3/uL (140-440); RDW COEFFICIENT OF VARIATION 12.8 % (11.6-14.8); RED BLOOD COUNT 3.91 10^6/ul (4.20-5.40); WHITE BLOOD COUNT 9.37 K/ul (4.6-10.2)
[2020-08-02 05:38] LABS: ALBUMIN 3.41 g/dL (3.5-5.0); ALKALINE PHOSPHATASE 50.3 U/L (53-141); ASPARTATE AMINO TRANSFERASE 33.2 U/L (14-36); BILIRUBIN,TOTAL 0.38 mg/dL (0.2-1.3); BLOOD UREA NITROGEN 25.2 mg/dL (7-17); CALCIUM 7.47 mg/dL (8.4-10.2); CARBON DIOXIDE 21.5 mmol/L (22-30.0); CHLORIDE 106.2 mmol/L (98-107); CREATININE 0.9 mg/dL (0.60-1.30); GLUCOSE 112.4 mg/dL (74-106); POTASSIUM 4.01 mmol/L (3.5-5.1); SODIUM 136.7 mmol/L (134.5-145); TOTAL PROTEIN 6.26 g/dL (6.3-8.2)
[2020-08-02] MEDS: SYNTHROID PO SCH ×2 (05:40)
[2020-08-02] MEDS: PEPCID PO SCH (05:40)
[2020-08-02 06:15] LABS: PROTHROMBIN TIME 44.1 SEC (9.3-11.0)
[2020-08-02 07:16] LABS: C-REACTIVE PROTEIN 2 mg/L (0-10)
[2020-08-02] MEDS: ROCEPHIN 1 GM/50 ML D5W 1 GM/50 ML BAG IV SCH (08:31)
[2020-08-02] MEDS: SYMBICORT 160-4.5 MCG INHALER IH SCH ×2 (08:31→20:05)
[2020-08-02] MEDS: COZAAR PO SCH (08:32)
[2020-08-02] MEDS: BETAPACE PO SCH ×2 (08:32→20:04)
[2020-08-02] MEDS: NORVASC PO SCH (08:32)
[2020-08-02] MEDS: VITAMIN D PO SCH (08:32)
[2020-08-02] MEDS: ZITHROMAX PO SCH (08:32)
[2020-08-02] MEDS: ZINC-220 PO SCH (08:33)
[2020-08-02] MEDS: DECADRON IVP SCH (08:33)
--- NOTE | 2020-08-02 09:30 | PCM.PROG ---
Attending Provider: ATTENDING PROVIDER: Dr. RICARDO HENLEY This patient is seen with Magdalena Velasco, Nurse Practitioner. DATE OF SERVICE: 08/02/20 SUBJECTIVE: This 84 year old /WHITE F was hospitalized 07/29/20. The patient is resting comfortably. She is still with mild shortness of breath with exertion. Sats greater than 95 on 2L. Reports she is feeling some better after IV fluids yesterday, still not much appetite. REVIEW OF SYSTEMS: CONSTITUTIONAL: Weakness, fatigue. No night sweats. No malaise, lethargy. No fever or chills. HEENT: Eyes: No visual changes. No eye pain. No eye discharge. ENT: No runny nose. No epistaxis. No sinus pain. No odynophagia. No congestion. RESPIRATORY: Shortness of breath and cough, No hemoptysis. CARDIOVASCULAR: No angina symptoms. No CHF symptoms. No atypical chest pain for CAD. No palpitations. No orthopnea. GASTROINTESTINAL: Poor appetite. No abdominal pain. No nausea or vomiting. No diarrhea or constipation. No hematemesis. No hematochezia. GENITOURINARY: No urgency. No frequency. No dysuria. No hematuria. No obstructiv e symptoms. No discharge. No pain. No significant abnormal bleeding. MUSCULOSKELETAL: No musculoskeletal pain; no joint swelling. NEUROLOGICAL: Awake, alert, oriented to time, place and person. No headache. No neck pain. No syncope. No seizures. No dizziness. PSYCHIATRIC: Not anxious. No depression. No suicidal thoughts. No homicidal thoughts. SKIN: No rash. No lesions. No wounds. ENDOCRINE: No unexplained weight loss. No weight gain. HEMATOLOGIC/LYMPHATIC: No anemia. No purpura. No petechiae. No prolonged or excessive bleeding. No palpable lymph nodes. PHYSICAL EXAMINATION: GENERAL: The patient is awake, alert and oriented, lying/sitting in bed in no distress. VITAL SIGNS: Temperature 97.5 F, Pulse 56, Respiratory Rate 16, BP 137/69, Pulse Ox 92% HEENT: Head normocephalic, atraumatic. Eyes: Extraocular muscles are intact. Pupils are equal, round and reactive to light and accommodation. Ears: No lesions. Nose appeared normal. Throat: No exudate or erythema. NECK: Supple. No JVD, no carotid bruit. No lymphadenopathy or thyromegaly. LUNGS: Diminished breath sounds. Crackles left lower lung, right mid. Percussion note normal. Chest symmetrical. HEART: S1, S2, no S3. No murmurs. No cyanosis or clubbing. No ascites. Pulses: Dorsalis pedis and posterior tibial pulses +1 to +2 both sides. ABDOMEN: Soft. Non-tender. Bowel sounds active. No CVA tenderness. No mass felt. EXTREMITIES: No edema. Full range of motion of all extremities, equal. NEUROLOGIC: No focal deficit. Cranial nerves II through XII are grossly intact. No headache. No double vision. SKIN: Not dry. Intact. Turgor-normal. LYMPHATIC: No palpable lymph nodes/no lymphedema. MUSCULOSKELETAL: Normal joints with no swelling. Muscle tone is normal. LAB REVIEW: 08/02/20 05:20 08/02/20 05:20 08/02/20 05:20: Sodium 136.7, Potassium 4.01, Chloride 106.2, Carbon Dioxide 21.5 L, Anion Gap 13.01, BUN 25.2 H, Creatinine 0.90, Estimated GFR (MDRD) 60.00, BUN/Creatinine Ratio 28.00, Glucose 112.4 H, Calcium 7.47 L, Ferritin 282.00 H, Total Bilirubin 0.38, AST 33.2, ALT 31.0, Alkaline Phosphatase 50.3 L, Total Protein 6.26 L, Albumin 3.41 L, Globulin 2.85, Albumin/Globulin Ratio 1.19 08/02/20 05:20: WBC 9.37, RBC 3.91 L, Hgb 12.2, Hct 34.9 L, MCV 89.3, MCH 31.2 H , MCHC 35.0, RDW Coeff of [place] 12.8, Plt Count 263, Immature Gran % (Auto) 0.6, Neut % (Auto) 84.8 H, Lymph % (Auto) 8.3 L, [place] % (Auto) 6.3, Eos % (Auto) 0.0, Baso % (Auto) 0.0, Neut # (Auto) 7.9 H, Lymph # (Auto) 0.8, [place] # (Auto) 0.6, Eos # (Auto) 0.0, Baso # (Auto) 0.0, Immature Gran # (Auto) 0.1 08/02/20 05:20: D-Dimer 555.15 H 08/02/20 05:20: PT 44.1 H D, INR 4.10 H* 08/01/20 05:25: Lactate Dehydrogenase 217, C-Reactive Prot, Quant 2 07/31/20 04:50: Lactate Dehydrogenase 245 H, C-Reactive Prot, Quant 4 07/30/20 14:11: Lactate Dehydrogenase 245 H, C-Reactive Prot, Quant 5 ASSESSMENT: Please see below. 1. Covid pneumonia. 2. Shortness of breath. PLAN: 1. Repeat chest x-ray in a.m. 2. Discontinue D. dimer. 3. Continue LDH and ferritin. 4. Incentive spirometer. Plan and coordination of the patient's care discussed in the presence of Plastics Engineer and nurse. CONDITION: Stable SCRIBED BY: BENNIE AVITIA Pension Administrator scribed while in presence of service performed by Dr. Henley/Magdalena Velasco APRN on 08/02/20 ([id number])
--- NOTE | 2020-08-02 10:28 | PN ---
DATE OF SERVICE: 08/01/2020 SUBJECTIVE: We are going to take over care from the hospitalist as she is our patient. She is currently hospitalized with COVID pneumonia. She is using 1-2 liters of oxygen via nasal canula. She denies any jennifer shortness of breath. She just complains of fatigue and hasn't been eating much. No fever. She has a cough but it is improving. Labs have been stable. REVIEW OF SYSTEMS: CONSTITUTIONAL: No night sweats. Fatigue and weakness. No fever or chills. HEENT: Eyes: No visual changes. No eye pain. No eye discharge. ENT: No runny nose. No epistaxis. No sinus pain. No sore throat. No odynophagia. No congestion. RESPIRATORY: Cough, no congestion. No hemoptysis. No shortness of breath. CARDIOVASCULAR: No angina symptoms. No CHF symptoms. No atypical chest pain for CAD. No palpitations. No PND. No orthopnea. GASTROINTESTINAL: No abdominal pain. No nausea or vomiting. No diarrhea or constipation. No hematemesis. No hematochezia. GENITOURINARY: No urgency. No frequency. No dysuria. No hematuria. No obstructive symptoms. No discharge. No pain. No significant abnormal bleeding. MUSCULOSKELETAL: No musculoskeletal pain; no joint swelling. NEUROLOGICAL: No headache. No neck pain. No syncope. No seizures. No dizziness. PSYCHIATRIC: Not anxious. No depression. No suicidal thoughts. No homicidal thoughts. SKIN: No rash. No lesions. No wounds. ENDOCRINE: No unexplained weight loss. No weight gain. HEMATOLOGIC/LYMPHATIC: No anemia. No purpura. No petechiae. No prolonged or excessive bleeding. No palpable lymph nodes. PHYSICAL EXAMINATION: GENERAL: The patient is alert and oriented times three. HEENT: Head normocephalic, atraumatic. Eyes: Extraocular muscles are intact. Pupils are equal, round and reactive to light and accommodation. Ears: No lesions. Nose appeared normal. Throat: No exudate or erythema. NECK: Supple. No JVD, no carotid bruit. No lymphadenopathy or thyromegaly. LUNGS: Diminished breath sounds. Crackles; left lower lung, right middle lung and right lower lung. Percussion note normal. Chest symmetrical. HEART: S1, S2, no S3. No murmurs. No cyanosis or clubbing. No ascites. Pulses: Dorsalis pedis and posterior tibial pulses +1 to +2 bilaterally. ABDOMEN: Soft. Nontender. Bowel sounds active. No CVA tenderness. No mass felt. EXTREMITIES: No edema. Full range of motion of all extremities, equal. NEUROLOGIC: No focal deficit. Cranial nerves II through XII are grossly intact. No headache. No double vision. SKIN: Not dry. Intact. Turgor - normal. LYMPHATIC: No palpable lymph nodes/no lymphedema. MUSCULOSKELETAL: Normal joints with no swelling. Muscle tone is normal. ASSESSMENT: 1. COVID pneumonia 2. Generalized weakness 3. Mild dehydration 4. Hypercoagulation PLAN: 1. We will hold Remdesivir as her INR was elevated. Yesterday it was elevated at 4.3 today is 5.3. She has been on Coumadin for Atrial fibrillation retirement. We will hold Remdesivir today and see if it will improve. 2. One liter of normal saline IV at 75cc an hour 3. I have encouraged her to eat and drink 4. We will follow closely. TIME SPENT: More than 30 minutes. Plan and coordination of the patient's care discussed in the presence of nurse. RYLIE
[2020-08-02] MEDS: XANAX PO PRN (20:25)
[2020-08-03] MEDS: VENTOLIN HFA (PER PUFF-WITH SPACER) IH SCH ×3 (05:01→19:12)
[2020-08-03 05:41] LABS: HEMATOCRIT 32.4 % (37.0-47.0); HEMOGLOBIN 11.5 g/dl (12.0-16.0); IMMATURE GRANULOCYTE # (AUTO) 0.1 (0.0-1.0); IMMATURE GRANULOCYTE % (AUTO) 0.7 % (0.0-5.0); LYMPHOCYTES % (AUTO) 13.9 (10.0-50.0); MEAN CORPUSCULAR HEMOGLOBIN 30.9 pg (27.0-31.0); MEAN CORPUSCULAR HGB CONC 35.5 (31.8-35.4); MEAN CORPUSCULAR VOLUME 87.1 fl (81.0-99.0); MONOCYTES # (AUTO) 0.5 K/uL (0.4-2.0); MONOCYTES % (AUTO) 7.4 (0-10); NEUTROPHILS # (AUTO) 5.5 K/ul (2.0-6.9); PLATELET COUNT 250 10^3/uL (140-440); RDW COEFFICIENT OF VARIATION 12.3 % (11.6-14.8); RED BLOOD COUNT 3.72 10^6/ul (4.20-5.40)
[2020-08-03 05:56] LABS: PROTHROMBIN TIME 42.2 SEC (9.3-11.0)
[2020-08-03 05:57] LABS: ALANINE AMINOTRANSFERASE 26.5 U/L (0-35); ALBUMIN 3.08 g/dL (3.5-5.0); ALKALINE PHOSPHATASE 43.7 U/L (53-141); ASPARTATE AMINO TRANSFERASE 26.9 U/L (14-36); BILIRUBIN,TOTAL 0.39 mg/dL (0.2-1.3); BLOOD UREA NITROGEN 22.2 mg/dL (7-17); CALCIUM 7.42 mg/dL (8.4-10.2); CARBON DIOXIDE 24.7 mmol/L (22-30.0); CHLORIDE 104.7 mmol/L (98-107); CREATININE 0.85 mg/dL (0.60-1.30); GLUCOSE 107.5 mg/dL (74-106); POTASSIUM 4.07 mmol/L (3.5-5.1); SODIUM 134.5 mmol/L (134.5-145); TOTAL PROTEIN 5.59 g/dL (6.3-8.2)
[2020-08-03] MEDS: PEPCID PO SCH (06:06)
[2020-08-03] MEDS: SYNTHROID PO SCH ×2 (06:07)
[2020-08-03 07:15] LABS: C-REACTIVE PROTEIN < 1 mg/L (0-10)
--- NOTE | 2020-08-03 08:00 | DI ---
EXAM: Chest one view, frontal view only. HISTORY: Shortness of breath. COMPARISON: 07/30/2020. FINDINGS: Heart size normal. Atherosclerotic calcifications are present. Mild diffuse reticular op acities noted. Consolidation in the left base noted. Other opacities seen on recent CT are poorly s een by radiograph. There is no pleural effusion or pneumothorax. Right mastectomy changes noted. D egenerative changes in the shoulders again seen. IMPRESSION: Redemonstration of pneumonia, better seen on previous CT.
[2020-08-03] MEDS: VEKLURY 100 MG in SODIUM CHLORIDE 250 ML IV SCH (08:19)
--- NOTE | 2020-08-03 09:20 | PCM.PROG ---
Attending Provider: ATTENDING PROVIDER: Dr. RICARDO HENLEY This patient is seen with Magdalena Velasco, Nurse Practitioner. DATE OF SERVICE: 08/03/20 SUBJECTIVE: This 84 year old /WHITE F was hospitalized 07/29/20. The patient is still not eating very well. She did walk around the room some yesterday. Fatigue is her main complaint. Labs are stable. Respiratory status is stable. REVIEW OF SYSTEMS: CONSTITUTIONAL: Weakness. Fatigue. No night sweats. No malaise, lethargy. No fever or chills. HEENT: Eyes: No visual changes. No eye pain. No eye discharge. ENT: No runny n ose. No epistaxis. No sinus pain. No odynophagia. No congestion. RESPIRATORY: Cough. No hemoptysis. No shortness of breath. CARDIOVASCULAR: No angina symptoms. No CHF symptoms. No atypical chest pain for CAD. No palpitations. No orthopnea.. GASTROINTESTINAL: Poor appetite. No abdominal pain. No nausea or vomiting. No diarrhea or constipation. No hematemesis. No hematochezia. GENITOURINARY: No urgency. No frequency. No dysuria. No hematuria. No obstructive symptoms. No discharge. No pain. No significant abnormal bleeding. MUSCULOSKELETAL: No musculoskeletal pain; no joint swelling. NEUROLOGICAL: Awake, alert, oriented to time, place and person. No headache. No neck pain. No syncope. No seizures. No dizziness. PSYCHIATRIC: Not anxious. No depression. No suicidal thoughts. No homicidal tho ughts. SKIN: No rash. No lesions. No wounds. ENDOCRINE: No unexplained weight loss. No weight gain. HEMATOLOGIC/LYMPHATIC: No anemia. No purpura. No petechiae. No prolonged or excessive bleeding. No palpable lymph nodes. PHYSICAL EXAMINATION: GENERAL: The patient is awake, alert and oriented, lying/sitting in bed in no distress. VITAL SIGNS: Temperature 98 F, Pulse 57, Respiratory Rate 14, BP 150/75, Pulse Ox 98% HEENT: Head normocephalic, atraumatic. Eyes: Extraocular muscles are intact. Pupils are equal, round and reactive to light and accommodation. Ears: No lesions. Nose appeared normal. Throat: No exudate or erythema. NECK: Supple. No JVD, no carotid bruit. No lymphadenopathy or thyromegaly. LUNGS: Diminished breath sounds. Crackles left and right lower lobes. Percussion note normal. Chest symmetrical. HEART: S1, S2, no S3. No murmurs. No cyanosis or clubbing. No ascites. Pulses: Dorsalis pedis and posterior tibial pulses +1 to +2 both sides. ABDOMEN: Soft. Non-tender. Bowel sounds active. No CVA tenderness. No mass felt. EXTREMITIES: No edema. Full range of motion of all extremities, equal. NEUROLOGIC: No focal deficit. Cranial nerves II through XII are grossly intact. No headache. No double vision. SKIN: Not dry. Intact. Turgor-normal. LYMPHATIC: No palpable lymph nodes/no lymphedema. MUSCULOSKELETAL: Normal joints with no swelling. Muscle tone is normal. LAB REVIEW: 08/03/20 05:30 08/03/20 05:30 08/03/20 05:30: Sodium 134.5, Potassium 4.07, Chloride 104.7, Carbon Dioxide 24.7, Anion Gap 9.17, BUN 22.2 H, Creatinine 0.85, Estimated GFR (MDRD) 64.00, BUN/Creatinine Ratio 26.11, Glucose 107.5 H, Calcium 7.42 L, Ferritin 275.00 H, Total Bilirubin 0.39, AST 26.9, ALT 26.5, Alkaline Phosphatase 43.7 L, Total Protein 5.59 L, Albumin 3.08 L, Globulin 2.51, Albumin/Globulin Ratio 1.22 08/03/20 05:30: WBC 7.00, RBC 3.72 L, Hgb 11.5 L, Hct 32.4 L, MCV 87.1, MCH 30.9, MCHC 35.5 H, RDW Coeff of [place] 12.3, Plt Count 250, Immature Gran % (Auto) 0.7, Neut % (Auto) 78.0 H, Lymph % (Auto) 13.9, [place] % (Auto) 7.4, Eos % (Auto) 0.0, Baso % (Auto) 0.0, Neut # (Auto) 5.5, Lymph # (Auto) 1.0, [place] # (Auto) 0.5, Eos # (Auto) 0.0, Baso # (Auto) 0.0, Immature Gran # (Auto) 0.1 08/03/20 05:30: PT 42.2 H, INR 3.93 H 08/02/20 05:20: Lactate Dehydrogenase 224, C-Reactive Prot, Quant < 1 ASSESSMENT: Please see below. 1. Bilateral Covid pneumonia. 2. Anemia. 3. Hypercoagulation. PLAN: 1. Zofran 4 mg q.6hr IV p.r.n. for nausea, 2. Encourage the patient to get up and walk today. 3. Continue to hold Coumadin. Plan and coordination of the patient's care discussed in the presence of Pump Servicer Supervisor and nurse. CONDITION: Stable SCRIBED BY: BENNIE AVITIA Homeland Security Program Specialist scribed while in presence of service performed by Seun Henley/Magdalena Velasco APRN on 08/03/20 ([id number])
[2020-08-03] MEDS: ZINC-220 PO SCH (09:39)
[2020-08-03] MEDS: ROCEPHIN 1 GM/50 ML D5W 1 GM/50 ML BAG IV SCH (09:39)
[2020-08-03] MEDS: BETAPACE PO SCH ×2 (09:39→20:20)
[2020-08-03] MEDS: CRESTOR PO SCH (09:39)
[2020-08-03] MEDS: COZAAR PO SCH (09:39)
[2020-08-03] MEDS: VITAMIN D PO SCH (09:39)
[2020-08-03] MEDS: NORVASC PO SCH (09:39)
[2020-08-03] MEDS: DECADRON IVP SCH (09:41)
[2020-08-03] MEDS: SYMBICORT 160-4.5 MCG INHALER IH SCH ×2 (09:45→20:22)
--- NOTE | 2020-08-03 10:38 | PN ---
DATE OF SERVICE: 08/01/2020 SUBJECTIVE: The patient was seen and examined today with the Nurse Practitioner. The patient has COVID pneumonia. She is being treated with Rocephin, Zithromax, steroids and Remdesivir. Remdesivir was held today because of rising INR. The patient's appetite is still below par but improving. She is oriented to time, place and person. Saturation more than 94% with 2 liters. The patient does have any chest pain, no PND, no orthopnea, no palpitations. She is my patient for a number of years. In my absence the patient was hospitalized under hospitalist services. She is transferred to my service today. TIME SPENT: More than 30 minutes. Plan and coordination of the patient's care discussed in the presence of nurse. RYLIE
--- NOTE | 2020-08-03 11:40 | PN ---
DATE OF SERVICE: 08/02/20 SUBJECTIVE: The patient was seen and examined with the nurse practitioner. The patient's condition seems to be stable. Cardiovascular and respiratory status stable. The patient is on Remdesivir which has been on hold because of a high INR. She has continued to be on Rocephin, Zithromax and steroids. Appetite seems to have improved. The patient has Covid positive pneumonia. TIME SPENT: More than 30 minutes. Plan and coordination of the patient's care discussed in the presence of nurse. RYLIE
[2020-08-04] MEDS: VENTOLIN HFA (PER PUFF-WITH SPACER) IH SCH ×3 (05:02→19:50)
[2020-08-04 05:27] LABS: BASOPHILS % (AUTO) 0.2 % (0.0-3.0); HEMATOCRIT 32.6 % (37.0-47.0); HEMOGLOBIN 11.6 g/dl (12.0-16.0); IMMATURE GRANULOCYTE # (AUTO) 0.1 (0.0-1.0); IMMATURE GRANULOCYTE % (AUTO) 1.4 % (0.0-5.0); LYMPHOCYTES # (AUTO) 1.1 K/uL (0.60-3.4); LYMPHOCYTES % (AUTO) 12.6 (10.0-50.0); MEAN CORPUSCULAR HEMOGLOBIN 30.7 pg (27.0-31.0); MEAN CORPUSCULAR HGB CONC 35.6 (31.8-35.4); MEAN CORPUSCULAR VOLUME 86.2 fl (81.0-99.0); MONOCYTES # (AUTO) 0.6 K/uL (0.4-2.0); MONOCYTES % (AUTO) 6.5 (0-10); NEUTROPHILS # (AUTO) 6.8 K/ul (2.0-6.9); NEUTROPHILS % (AUTO) 79.3 % (42.2-75.2); PLATELET COUNT 279 10^3/uL (140-440); RDW COEFFICIENT OF VARIATION 12.3 % (11.6-14.8); RED BLOOD COUNT 3.78 10^6/ul (4.20-5.40); WHITE BLOOD COUNT 8.55 K/ul (4.6-10.2)
[2020-08-04] MEDS: PEPCID PO SCH (05:41)
[2020-08-04] MEDS: SYNTHROID PO SCH ×2 (05:42)
[2020-08-04 05:45] LABS: ALANINE AMINOTRANSFERASE 27.7 U/L (0-35); ALBUMIN 3.03 g/dL (3.5-5.0); ALKALINE PHOSPHATASE 53.1 U/L (53-141); ASPARTATE AMINO TRANSFERASE 28.7 U/L (14-36); BILIRUBIN,TOTAL 0.39 mg/dL (0.2-1.3); BLOOD UREA NITROGEN 26.2 mg/dL (7-17); CALCIUM 7.6 mg/dL (8.4-10.2); CARBON DIOXIDE 25.4 mmol/L (22-30.0); CHLORIDE 103.4 mmol/L (98-107); CREATININE 0.81 mg/dL (0.60-1.30); GLUCOSE 107.5 mg/dL (74-106); POTASSIUM 4.26 mmol/L (3.5-5.1); SODIUM 132.9 mmol/L (134.5-145); TOTAL PROTEIN 5.56 g/dL (6.3-8.2)
[2020-08-04 05:49] LABS: PROTHROMBIN TIME 37.1 SEC (9.3-11.0)
[2020-08-04] MEDS: VITAMIN D PO SCH (08:58)
[2020-08-04] MEDS: NORVASC PO SCH (08:59)
[2020-08-04] MEDS: COZAAR PO SCH (08:59)
[2020-08-04] MEDS: CRESTOR PO SCH (08:59)
[2020-08-04] MEDS: ROCEPHIN 1 GM/50 ML D5W 1 GM/50 ML BAG IV SCH (08:59)
[2020-08-04] MEDS: ZINC-220 PO SCH (08:59)
[2020-08-04] MEDS: BETAPACE PO SCH ×2 (08:59→20:02)
[2020-08-04] MEDS: SYMBICORT 160-4.5 MCG INHALER IH SCH ×2 (09:00→20:03)
[2020-08-04] MEDS: DECADRON IVP SCH (09:04)
--- NOTE | 2020-08-04 09:29 | PCM.PROG ---
Attending Provider: ATTENDING PROVIDER: Dr. RICARDO HENLEY DATE OF SERVICE: 08/04/20 SUBJECTIVE: This 84 year old /WHITE F was hospitalized 07/29/20 with Covid pneumonia. The patient's condition is stable and improving steadily. All markers stable for Covid. REVIEW OF SYSTEMS: CONSTITUTIONAL: Weakness, fatigue. No night sweats. No malaise, lethargy. No fever or chills. HEENT: Eyes: No visual changes. No eye pain. No eye discharge. ENT: No runny nose. No epistaxis. No sinus pain. No odynophagia. No congestion. RESPIRATORY: No cough, no congestion. No hemoptysis. No shortness of breath. CARDIOVASCULAR: No angina symptoms. No CHF symptoms. No atypical chest pain for CAD. No palpitations. No orthopnea.. GASTROINTESTINAL: Appetite is better. No abdominal pain. No nausea or vomiting. No diarrhea or constipation. No hematemesis. No hematochezia. GENITOURINARY: No urgency. No frequency. No dysuria. No hematuria. No obstructive symptoms. No discharge. No pain. No significant abnormal bleeding. MUSCULOSKELETAL: No musculoskeletal pain; no joint swelling. NEUROLOGICAL: Awake, alert, oriented to time, place and person. No headache. No neck pain. No syncope. No seizures. No dizziness. PSYCHIATRIC: Not anxious. No depression. No suicidal thoughts. No homicidal tho ughts. SKIN: No rash. No lesions. No wounds. ENDOCRINE: No unexplained weight loss. No weight gain. HEMATOLOGIC/LYMPHATIC: No anemia. No purpura. No petechiae. No prolonged or excessive bleeding. No palpable lymph nodes. PHYSICAL EXAMINATION: GENERAL: The patient is awake, alert and oriented, lying/sitting in bed in no distress. VITAL SIGNS: Temperature 97.7 F, Pulse 60, Respiratory Rate 16, BP 153/73, Pulse Ox 95% HEENT: Head normocephalic, atraumatic. Eyes: Extraocular muscles are intact. Pupils are equal, round and reactive to light and accommodation. Ears: No lesions. Nose appeared normal. Throat: No exudate or erythema. NECK: Supple. No JVD, no carotid bruit. No lymphadenopathy or thyromegaly. LUNGS: Decreased breath sounds. Good air entry. Clear to auscultation. Percussion note normal. Chest symmetrical. HEART: S1, S2, no S3. No murmurs. No cyanosis or clubbing. No ascites. Pulses: Dorsalis pedis and posterior tibial pulses +1 to +2 both sides. ABDOMEN: Soft. Non-tender. Bowel sounds active. No CVA tenderness. No mass felt. EXTREMITIES: No edema. Full range of motion of all extremities, equal. No calf tenderness. NEUROLOGIC: No focal deficit. Cranial nerves II through XII are grossly intact. No headache, no double vision or headache. SKIN: Warm and dry. Intact. Turgor-normal. LYMPHATIC: No palpable lymph nodes/no lymphedema. MUSCULOSKELETAL: Normal joints with no swelling. Muscle tone is normal. LAB REVIEW: 08/04/20 05:10 08/04/20 05:10 08/04/20 05:10: Sodium 132.9 L, Potassium 4.26, Chloride 103.4, Carbon Dioxide 25.4, Anion Gap 8.36, BUN 26.2 H, Creatinine 0.81, Estimated GFR (MDRD) 67.00, BUN/Creatinine Ratio 32.34, Glucose 107.5 H, Calcium 7.60 L, Ferritin 285.00 H, Total Bilirubin 0.39, AST 28.7, ALT 27.7, Alkaline Phosphatase 53.1, Total Protein 5.56 L, Albumin 3.03 L, Globulin 2.53, Albumin/Globulin Ratio 1.19 08/04/20 05:10: PT 37.1 H D, INR 3.46 08/04/20 05:10: WBC 8.55, RBC 3.78 L, Hgb 11.6 L, Hct 32.6 L, MCV 86.2, MCH 30.7, MCHC 35.6 H, RDW Coeff of [place] 12.3, Plt Count 279, Immature Gran % (Auto) 1.4, Neut % (Auto) 79.3 H, Lymph % (Auto) 12.6, [place] % (Auto) 6.5, Eos % (Auto) 0.0, Baso % (Auto) 0.2, Neut # (Auto) 6.8, Lymph # (Auto) 1.1, [place] # (Auto) 0.6, Eos # (Auto) 0.0, Baso # (Auto) 0.0, Immature Gran # (Auto) 0.1 08/03/20 05:30: Lactate Dehydrogenase 189 ASSESSMENT: Please see below. 1. Covid-19 pneumonia seems to be improving clinically. 2. Dehydration resolved, still feels weak and tired. PLAN: 1. Oxygen supportive measures. 2. D/C Rocephin after today's dose which is dose #7 3. Keflex 500 mg b.i.d. 4. Continue Decadron. 5. Continue Decadron. 6. Continue to hold Coumadin. 7. D/C Ferritin. 8. Continue LDH. Plan and coordination of the patient's care discussed in the presence of Assembler Hydraulic Backhoe and nurse. CONDITION: Stable SCRIBED BY: BENNIE AVITIA, Lodging House Keeper scribed while in presence of service performed by Dr. RICARDO HENLEY on 08/04/20 ([id number])
[2020-08-04] MEDS: XANAX PO PRN (20:07)
[2020-08-05] MEDS: VENTOLIN HFA (PER PUFF-WITH SPACER) IH SCH ×3 (04:50→19:30)
[2020-08-05 04:58] LABS: BASOPHILS % (AUTO) 0.1 % (0.0-3.0); HEMATOCRIT 33.6 % (37.0-47.0); HEMOGLOBIN 11.9 g/dl (12.0-16.0); IMMATURE GRANULOCYTE # (AUTO) 0.2 (0.0-1.0); IMMATURE GRANULOCYTE % (AUTO) 1.8 % (0.0-5.0); LYMPHOCYTES # (AUTO) 1.1 K/uL (0.60-3.4); LYMPHOCYTES % (AUTO) 13.2 (10.0-50.0); MEAN CORPUSCULAR HEMOGLOBIN 30.7 pg (27.0-31.0); MEAN CORPUSCULAR HGB CONC 35.4 (31.8-35.4); MEAN CORPUSCULAR VOLUME 86.6 fl (81.0-99.0); MONOCYTES # (AUTO) 0.7 K/uL (0.4-2.0); MONOCYTES % (AUTO) 7.7 (0-10); NEUTROPHILS # (AUTO) 6.7 K/ul (2.0-6.9); NEUTROPHILS % (AUTO) 77.2 % (42.2-75.2); PLATELET COUNT 292 10^3/uL (140-440); RED BLOOD COUNT 3.88 10^6/ul (4.20-5.40); WHITE BLOOD COUNT 8.66 K/ul (4.6-10.2)
[2020-08-05 05:03] LABS: ALANINE AMINOTRANSFERASE 29.2 U/L (0-35); ALBUMIN 3.05 g/dL (3.5-5.0); ALKALINE PHOSPHATASE 60.7 U/L (53-141); ASPARTATE AMINO TRANSFERASE 27.4 U/L (14-36); BILIRUBIN,TOTAL 0.36 mg/dL (0.2-1.3); BLOOD UREA NITROGEN 26.5 mg/dL (7-17); CALCIUM 7.57 mg/dL (8.4-10.2); CARBON DIOXIDE 26.1 mmol/L (22-30.0); CHLORIDE 102.4 mmol/L (98-107); CREATININE 0.77 mg/dL (0.60-1.30); GLUCOSE 114.3 mg/dL (74-106); POTASSIUM 4.36 mmol/L (3.5-5.1); SODIUM 133.3 mmol/L (134.5-145); TOTAL PROTEIN 5.56 g/dL (6.3-8.2)
[2020-08-05] MEDS: PEPCID PO SCH (05:44)
[2020-08-05] MEDS: SYNTHROID PO SCH ×2 (05:44)
[2020-08-05] MEDS: VITAMIN D PO SCH (10:46)
[2020-08-05] MEDS: KEFLEX PO SCH ×2 (10:46→20:25)
[2020-08-05] MEDS: COZAAR PO SCH (10:46)
[2020-08-05] MEDS: ZINC-220 PO SCH (10:46)
[2020-08-05] MEDS: DECADRON IVP SCH (10:47)
[2020-08-05] MEDS: BETAPACE PO SCH ×2 (10:47→20:25)
[2020-08-05] MEDS: NORVASC PO SCH (10:47)
[2020-08-05] MEDS: SYMBICORT 160-4.5 MCG INHALER IH SCH ×2 (10:49→20:25)
[2020-08-05] MEDS: XANAX PO PRN (20:50)
[2020-08-06 05:11] LABS: BASOPHILS % (AUTO) 0.3 % (0.0-3.0); HEMATOCRIT 33.4 % (37.0-47.0); IMMATURE GRANULOCYTE # (AUTO) 0.2 (0.0-1.0); IMMATURE GRANULOCYTE % (AUTO) 2.8 % (0.0-5.0); LYMPHOCYTES % (AUTO) 14.1 (10.0-50.0); MEAN CORPUSCULAR HEMOGLOBIN 31.1 pg (27.0-31.0); MEAN CORPUSCULAR HGB CONC 35.9 (31.8-35.4); MEAN CORPUSCULAR VOLUME 86.5 fl (81.0-99.0); MONOCYTES # (AUTO) 0.6 K/uL (0.4-2.0); MONOCYTES % (AUTO) 8.5 (0-10); NEUTROPHILS # (AUTO) 5.5 K/ul (2.0-6.9); NEUTROPHILS % (AUTO) 74.3 % (42.2-75.2); PLATELET COUNT 319 10^3/uL (140-440); RDW COEFFICIENT OF VARIATION 12.3 % (11.6-14.8); RED BLOOD COUNT 3.86 10^6/ul (4.20-5.40)
[2020-08-06] MEDS: VENTOLIN HFA (PER PUFF-WITH SPACER) IH SCH ×3 (05:15→20:05)
[2020-08-06 05:29] LABS: ALANINE AMINOTRANSFERASE 25.9 U/L (0-35); ALBUMIN 3.05 g/dL (3.5-5.0); ALKALINE PHOSPHATASE 57.9 U/L (53-141); ASPARTATE AMINO TRANSFERASE 19.1 U/L (14-36); BILIRUBIN,TOTAL 0.47 mg/dL (0.2-1.3); BLOOD UREA NITROGEN 29.1 mg/dL (7-17); CALCIUM 7.55 mg/dL (8.4-10.2); CARBON DIOXIDE 26.2 mmol/L (22-30.0); CHLORIDE 101.3 mmol/L (98-107); CREATININE 0.85 mg/dL (0.60-1.30); GLUCOSE 108.5 mg/dL (74-106); POTASSIUM 4.31 mmol/L (3.5-5.1); SODIUM 132.8 mmol/L (134.5-145); TOTAL PROTEIN 5.54 g/dL (6.3-8.2)
[2020-08-06] MEDS: SYNTHROID PO SCH ×2 (05:34→05:35)
[2020-08-06] MEDS: PEPCID PO SCH (05:34)
[2020-08-06 05:38] LABS: PROTHROMBIN TIME 23.8 SEC (9.3-11.0)
[2020-08-06] MEDS: VITAMIN D PO SCH (08:37)
[2020-08-06] MEDS: ZINC-220 PO SCH (08:38)
[2020-08-06] MEDS: CRESTOR PO SCH (08:39)
[2020-08-06] MEDS: BETAPACE PO SCH ×2 (08:39→20:26)
[2020-08-06] MEDS: KEFLEX PO SCH ×2 (08:39→20:26)
[2020-08-06] MEDS: COZAAR PO SCH (08:40)
[2020-08-06] MEDS: NORVASC PO SCH (08:40)
[2020-08-06] MEDS: SYMBICORT 160-4.5 MCG INHALER IH SCH ×2 (08:41→20:25)
[2020-08-06] MEDS: DECADRON IVP SCH (09:59)
[2020-08-07] MEDS: VENTOLIN HFA (PER PUFF-WITH SPACER) IH SCH ×3 (04:45→19:30)
[2020-08-07 05:17] LABS: BASOPHILS % (AUTO) 0.2 % (0.0-3.0); HEMATOCRIT 33.1 % (37.0-47.0); HEMOGLOBIN 11.6 g/dl (12.0-16.0); IMMATURE GRANULOCYTE # (AUTO) 0.4 (0.0-1.0); IMMATURE GRANULOCYTE % (AUTO) 4.4 % (0.0-5.0); LYMPHOCYTES # (AUTO) 1.3 K/uL (0.60-3.4); LYMPHOCYTES % (AUTO) 13.4 (10.0-50.0); MEAN CORPUSCULAR HEMOGLOBIN 30.7 pg (27.0-31.0); MEAN CORPUSCULAR VOLUME 87.6 fl (81.0-99.0); MONOCYTES # (AUTO) 0.8 K/uL (0.4-2.0); MONOCYTES % (AUTO) 8.4 (0-10); NEUTROPHILS # (AUTO) 6.9 K/ul (2.0-6.9); NEUTROPHILS % (AUTO) 73.6 % (42.2-75.2); PLATELET COUNT 314 10^3/uL (140-440); RDW COEFFICIENT OF VARIATION 12.2 % (11.6-14.8); RED BLOOD COUNT 3.78 10^6/ul (4.20-5.40); WHITE BLOOD COUNT 9.36 K/ul (4.6-10.2)
[2020-08-07 05:32] LABS: ALANINE AMINOTRANSFERASE 26.8 U/L (0-35); ALBUMIN 3.02 g/dL (3.5-5.0); ALKALINE PHOSPHATASE 63.8 U/L (53-141); BILIRUBIN,TOTAL 0.48 mg/dL (0.2-1.3); BLOOD UREA NITROGEN 32.8 mg/dL (7-17); CALCIUM 7.54 mg/dL (8.4-10.2); CARBON DIOXIDE 25.6 mmol/L (22-30.0); CHLORIDE 101.8 mmol/L (98-107); CREATININE 0.82 mg/dL (0.60-1.30); GLUCOSE 104.6 mg/dL (74-106); POTASSIUM 4.09 mmol/L (3.5-5.1); SODIUM 132.1 mmol/L (134.5-145); TOTAL PROTEIN 5.42 g/dL (6.3-8.2)
[2020-08-07 05:33] LABS: PROTHROMBIN TIME 19.9 SEC (9.3-11.0)
[2020-08-07] MEDS: SYNTHROID PO SCH ×2 (05:38→05:39)
[2020-08-07] MEDS: PEPCID PO SCH (05:38)
[2020-08-07] MEDS ORDERED: PREDNISONE PO SCH ×2 (08:36→09:00)
--- NOTE | 2020-08-07 08:48 | PCM.PROG ---
Attending Provider: ATTENDING PROVIDER: Dr. RICARDO HENLEY This patient is seen with Magdalena Velasco, Nurse Practitioner. DATE OF SERVICE: 08/07/20 SUBJECTIVE: This 84 year old /WHITE F was hospitalized 07/29/20. The patient is resting comfortably.She has been eating better. Up and about walking some in the hallway. No fever. Not requiring any O2. REVIEW OF SYSTEMS: CONSTITUTIONAL: No night sweats. Fatigue. No fever or chills. HEENT: Eyes: No visual changes. No eye pain. No eye discharge. ENT: No runny nose. No epistaxis. No sinus pain. No odynophagia. No congestion. RESPIRATORY: Cough, no congestion. No hemoptysis. No shortness of breath. CARDIOVASCULAR: No angina symptoms. No CHF symptoms. No atypical chest pain for CAD. No palpitations. No orthopnea.. GASTROINTESTINAL: No abdominal pain. No nausea or vomiting. No diarrhea or constipation. No hematemesis. No hematochezia. GENITOURINARY: No urgency. No frequency. No dysuria. No hematuria. No obstructive symptoms. No discharge. No pain. No significant abnormal bleeding. MUSCULOSKELETAL: No musculoskeletal pain; no joint swelling. NEUROLOGICAL: Awake, alert, oriented to time, place and person. No headache. No neck pain. No syncope. No seizures. No dizziness. PSYCHIATRIC: Not anxious. No depression. No suicidal thoughts. No homicidal thoughts. SKIN: No rash. No lesions. No wounds. ENDOCRINE: No unexplained weight loss. No weight gain. HEMATOLOGIC/LYMPHATIC: No anemia. No purpura. No petechiae. No prolonged or excessive bleeding. No palpable lymph nodes. PHYSICAL EXAMINATION: GENERAL: The patient is awake, alert and oriented, lying in bed in no distress. VITAL SIGNS: Temperature 97.9 F, Pulse 60, Respiratory Rate 18, BP 138/71, Pulse Ox 97% HEENT: Head normocephalic, atraumatic. Eyes: Extraocular muscles are intact. Pupils are equal, round and reactive to light and accommodation. Ears: No lesions. Nose appeared normal. Throat: No exudate or erythema. NECK: Supple. No JVD, no carotid bruit. No lymphadenopathy or thyromegaly. LUNGS: Diminished breath sounds. Improved crackles right lower lobe. Clear to auscultation. Percussion note normal. Chest symmetrical. HEART: S1, S2, no S3. No murmurs. No cyanosis or clubbing. No ascites. Pulses: Dorsalis pedis and posterior tibial pulses +1 to +2 both sides. ABDOMEN: Soft. Non-tender. Bowel sounds active. No CVA tenderness. No mass felt. EXTREMITIES: No edema. Full range of motion of all extremities, equal. NEUROLOGIC: No focal deficit. Cranial nerves II through XII are grossly intact. No headache. No double vision. SKIN: Not dry. Intact. Turgor-normal. LYMPHATIC: No palpable lymph nodes/no lymphedema. MUSCULOSKELETAL: Normal joints with no swelling. Muscle tone is normal. LAB REVIEW: 08/07/20 04:47 08/07/20 04:47 08/07/20 05:11: PT 19.9 H, INR 1.87 08/07/20 04:47: Sodium 132.1 L, Potassium 4.09, Chloride 101.8, Carbon Dioxide 25.6, Anion Gap 8.79, BUN 32.8 H, Creatinine 0.82, Estimated GFR (MDRD) 66.00, BUN/Creatinine Ratio 40.00, Glucose 104.6, Calcium 7.54 L, Total Bilirubin 0.48, AST 21.0, ALT 26.8, Alkaline Phosphatase 63.8, Total Protein 5.42 L, Albumin 3.02 L, Globulin 2.40, Albumin/Globulin Ratio 1.25 08/07/20 04:47: WBC 9.36, RBC 3.78 L, Hgb 11.6 L, Hct 33.1 L, MCV 87.6, MCH 30.7, MCHC 35.0, RDW Coeff of [place] 12.2, Plt Count 314, Immature Gran % (Auto) 4.4, Neut % (Auto) 73.6, Lymph % (Auto) 13.4, [place] % (Auto) 8.4, Eos % (Auto) 0.0, Baso % (Auto) 0.2, Neut # (Auto) 6.9, Lymph # (Auto) 1.3, [place] # (Auto) 0.8, Eos # (Auto) 0.0, Baso # (Auto) 0.0, Immature Gran # (Auto) 0.4 ASSESSMENT: Please see below. 1. Bilateral COVID pneumonia 2. Generalized weakness. 3. Atrial fibrillation PLAN: 1. Will plan on discharge home tomorrow 2. Resume 2mg of Coumadin today 3. Discontinue Decadrone 4. Prednisone 10mg BID 5. Encourage to be up and about in the room today. Plan and coordination of the patient's care discussed in the presence of Bottler and nurse. SCRIBED BY: Priyanka ZIMMERMANist scribed while in presence of service performed by Dr. Henley/Magdalena Velasco APRN on 08/07/20 ([id number])
[2020-08-07] MEDS: ZINC-220 PO SCH (09:02)
[2020-08-07] MEDS: VITAMIN D PO SCH (09:02)
[2020-08-07] MEDS: BETAPACE PO SCH ×2 (09:02→20:09)
[2020-08-07] MEDS: KEFLEX PO SCH ×2 (09:03→20:09)
[2020-08-07] MEDS: COZAAR PO SCH (09:03)
[2020-08-07] MEDS: SYMBICORT 160-4.5 MCG INHALER IH SCH ×2 (09:03→20:10)
[2020-08-07] MEDS: NORVASC PO SCH (09:03)
[2020-08-07] MEDS: CRESTOR PO SCH (09:06)
[2020-08-07] MEDS ORDERED: COUMADIN PO SCH (17:00)
[2020-08-07] MEDS: PREDNISONE PO SCH (17:11)
[2020-08-07] MEDS: XANAX PO PRN (20:14)
[2020-08-08] MEDS: VENTOLIN HFA (PER PUFF-WITH SPACER) IH SCH (04:45)
[2020-08-08 05:07] LABS: BASOPHILS % (AUTO) 0.2 % (0.0-3.0); HEMOGLOBIN 11.2 g/dl (12.0-16.0); IMMATURE GRANULOCYTE # (AUTO) 0.4 (0.0-1.0); IMMATURE GRANULOCYTE % (AUTO) 4.1 % (0.0-5.0); LYMPHOCYTES # (AUTO) 1.3 K/uL (0.60-3.4); LYMPHOCYTES % (AUTO) 14.9 (10.0-50.0); MEAN CORPUSCULAR HEMOGLOBIN 30.6 pg (27.0-31.0); MEAN CORPUSCULAR VOLUME 87.4 fl (81.0-99.0); MONOCYTES # (AUTO) 0.9 K/uL (0.4-2.0); MONOCYTES % (AUTO) 9.7 (0-10); NEUTROPHILS # (AUTO) 6.3 K/ul (2.0-6.9); NEUTROPHILS % (AUTO) 71.1 % (42.2-75.2); PLATELET COUNT 303 10^3/uL (140-440); RDW COEFFICIENT OF VARIATION 12.4 % (11.6-14.8); RED BLOOD COUNT 3.66 10^6/ul (4.20-5.40); WHITE BLOOD COUNT 8.83 K/ul (4.6-10.2)
[2020-08-08 05:21] LABS: ALANINE AMINOTRANSFERASE 29.6 U/L (0-35); ALBUMIN 2.79 g/dL (3.5-5.0); ALKALINE PHOSPHATASE 70.5 U/L (53-141); ASPARTATE AMINO TRANSFERASE 21.7 U/L (14-36); BILIRUBIN,TOTAL 0.45 mg/dL (0.2-1.3); BLOOD UREA NITROGEN 34.1 mg/dL (7-17); CALCIUM 7.66 mg/dL (8.4-10.2); CARBON DIOXIDE 28.6 mmol/L (22-30.0); CHLORIDE 102.5 mmol/L (98-107); CREATININE 0.9 mg/dL (0.60-1.30); GLUCOSE 109.8 mg/dL (74-106); POTASSIUM 4.47 mmol/L (3.5-5.1); SODIUM 132.2 mmol/L (134.5-145); TOTAL PROTEIN 5.05 g/dL (6.3-8.2)
[2020-08-08 05:39] VITALS: BP 127/67; TEMP 98.3
[2020-08-08] MEDS: PEPCID PO SCH (06:02)
[2020-08-08] MEDS: SYNTHROID PO SCH ×2 (06:03)
--- NOTE | 2020-08-08 07:39 | PN ---
DATE OF SERVICE: 08/03/20 SUBJECTIVE: The patient was seen and examined with the nurse practitioner. The patient's condition is continuously improving with improvement in her appetite. She is still fatigued and tired. The patient's INR is being monitored. She is not on Remdesivir anymore. Cardiovascular and respiratory status stable with oxygen saturation more than 90% on room air. Most of the markers are within normal limits. Most of the markers for Covid are within normal range. TIME SPENT: More than 30 minutes. Plan and coordination of the patient's care discussed in the presence of nurse. RYLIE
--- NOTE | 2020-08-08 08:52 | PN ---
DATE OF SERVICE: 08/05/20 SUBJECTIVE: 84-year-old white female hospitalized with Covid-19 pneumonia. The patient is now on the regular floor. According to her she is feeling a lot better. Appetite has improved. She says she has more energy but still fatigued with minimal exertion. C-reactive protein is less than one. LDH is normal. Ferritin level borderline high. Oxygen saturation 97% with 2L. On room air she is 92 to 93%. REVIEW OF SYSTEMS: CONSTITUTIONAL: No night sweats. No fatigue, malaise, lethargy. No fever or chills. HEENT: Eyes: No visual changes. No eye pain. No eye discharge. ENT: No runny nose. No epistaxis. No sinus pain. No sore throat. No odynophagia. No congestion. RESPIRATORY: No cough, no congestion. No hemoptysis. No shortness of breath. CARDIOVASCULAR: No angina symptoms. No CHF symptoms. No atypical chest pain for CAD. No palpitations. No PND. No orthopnea. GASTROINTESTINAL: No abdominal pain. No nausea or vomiting. No diarrhea or constipation. No hematemesis. No hematochezia. GENITOURINARY: No urgency. No frequency. No dysuria. No hematuria. No obstructive symptoms. No discharge. No pain. No significant abnormal bleeding. MUSCULOSKELETAL: No musculoskeletal pain; no joint swelling. NEUROLOGICAL: No headache. No neck pain. No syncope. No seizures. No dizziness. PSYCHIATRIC: Not anxious. No depression. No suicidal thoughts. No homicidal thoughts. SKIN: No rash. No lesions. No wounds. ENDOCRINE: No unexplained weight loss. No weight gain. HEMATOLOGIC/LYMPHATIC: No anemia. No purpura. No petechiae. No prolonged or excessive bleeding. No palpable lymph nodes. PHYSICAL EXAMINATION: VITAL SIGNS: Temperature 97.6, pulse 65, respiratory rate 14, blood pressure 147/75. Pulse ox 97%. HEENT: Head normocephalic, atraumatic. Eyes: Extraocular muscles are intact. Pupils are equal, round and reactive to light and accommodation. Ears: No lesions. Nose appeared normal. Throat: No exudate or erythema. NECK: Supple. No JVD, no carotid bruit. No lymphadenopathy or thyromegaly. LUNGS: Decreased breath sounds but clear to auscultation. Percussion note normal. Chest symmetrical. HEART: S1, S2, no S3. No murmurs. No cyanosis or clubbing. No ascites. Pulses: Dorsalis pedis and posterior tibial pulses +1 to +2 bilaterally. ABDOMEN: Soft. Nontender. Bowel sounds active. No CVA tenderness. No mass felt. EXTREMITIES: No edema. Full range of motion of all extremities, equal. NEUROLOGIC: No focal deficit. Cranial nerves II through XII are grossly intact. No headache. No double vision. SKIN: Not dry. Intact. Turgor - normal. LYMPHATIC: No palpable lymph nodes/no lymphedema. MUSCULOSKELETAL: Normal joints with no swelling. Muscle tone is normal. LABS: Hemoglobin 11.9, hematocrit 33, WBC 8,600, normal differential. Creatinine 0.7, BUN 27, potassium 4.3. ASSESSMENT: 1. Covid-19 pneumonia seems to be improving. 2. Cardiovascular and respiratory status stable. PLAN: 1. Continue antibiotics, steroids. TIME SPENT: More than 30 minutes. Plan and coordination of the patient's care discussed in the presence of nurse. RYLIE
--- NOTE | 2020-08-08 09:11 | PCM.PROG ---
Attending Provider: ATTENDING PROVIDER: Dr. RICARDO HENLEY This patient is seen with Magdalena Velasco, Nurse Practitioner. DATE OF SERVICE: 08/08/20 SUBJECTIVE: This 84 year old /WHITE F was hospitalized 07/29/20. The patient is resting comfortably. She has been up and about walking around and eating well. Labs are stable. States ready to go home. REVIEW OF SYSTEMS: CONSTITUTIONAL: No night sweats. Fatigue. No fever or chills. HEENT: Eyes: No visual changes. No eye pain. No eye discharge. ENT: No runny nose. No epistaxis. No sinus pain. No odynophagia. No congestion. RESPIRATORY: Cough, no congestion. No hemoptysis. No shortness of breath. CARDIOVASCULAR: No angina symptoms. No CHF symptoms. No atypical chest pain for CAD. No palpitations. No orthopnea.. GASTROINTESTINAL: No abdominal pain. No nausea or vomiting. No diarrhea or constipation. No hematemesis. No hematochezia. GENITOURINARY: No urgency. No frequency. No dysuria. No hematuria. No obstructive symptoms. No discharge. No pain. No significant abnormal bleeding. MUSCULOSKELETAL: No musculoskeletal pain; no joint swelling. NEUROLOGICAL: Awake, alert, oriented to time, place and person. No headache. No neck pain. No syncope. No seizures. No dizziness. PSYCHIATRIC: Not anxious. No depression. No suicidal thoughts. No homicidal thoughts. SKIN: No rash. No lesions. No wounds. ENDOCRINE: No unexplained weight loss. No weight gain. HEMATOLOGIC/LYMPHATIC: No anemia. No purpura. No petechiae. No prolonged or excessive bleeding. No palpable lymph nodes. PHYSICAL EXAMINATION: GENERAL: The patient is awake, alert and oriented, lying in bed in no distress. VITAL SIGNS: Temperature 98.3 F, Pulse 60, Respiratory Rate 20, BP 127/67, Pulse Ox 94% HEENT: Head normocephalic, atraumatic. Eyes: Extraocular muscles are intact. Pupils are equal, round and reactive to light and accommodation. Ears: No lesions. Nose appeared normal. Throat: No exudate or erythema. NECK: Supple. No JVD, no carotid bruit. No lymphadenopathy or thyromegaly. LUNGS: Diminished breath sounds. Clear to auscultation. Percussion note normal. Chest symmetrical. HEART: S1, S2, no S3. No murmurs. No cyanosis or clubbing. No ascites. Pulses: Dorsalis pedis and posterior tibial pulses +1 to +2 both sides. ABDOMEN: Soft. Non-tender. Bowel sounds active. No CVA tenderness. No mass felt. EXTREMITIES: No edema. Full range of motion of all extremities, equal. NEUROLOGIC: No focal deficit. Cranial nerves II through XII are grossly intact. No headache. No double vision. SKIN: Not dry. Intact. Turgor-normal. LYMPHATIC: No palpable lymph nodes/no lymphedema. MUSCULOSKELETAL: Normal joints with no swelling. Muscle tone is normal. LAB REVIEW: 08/08/20 04:23 08/08/20 04:23 08/08/20 04:23: Sodium 132.2 L, Potassium 4.47, Chloride 102.5, Carbon Dioxide 28.6, Anion Gap 5.57, BUN 34.1 H, Creatinine 0.90, Estimated GFR (MDRD) 60.00, BUN/Creatinine Ratio 37.88, Glucose 109.8 H, Calcium 7.66 L, Total Bilirubin 0.45, AST 21.7, ALT 29.6, Alkaline Phosphatase 70.5, Total Protein 5.05 L, Albumin 2.79 L, Globulin 2.26, Albumin/Globulin Ratio 1.23 08/08/20 04:23: WBC 8.83, RBC 3.66 L, Hgb 11.2 L, Hct 32.0 L, MCV 87.4, MCH 30.6, MCHC 35.0, RDW Coeff of [place] 12.4, Plt Count 303, Immature Gran % (Auto) 4.1, Neut % (Auto) 71.1, Lymph % (Auto) 14.9, [place] % (Auto) 9.7, Eos % (Auto) 0.0, Baso % (Auto) 0.2, Neut # (Auto) 6.3, Lymph # (Auto) 1.3, [place] # (Auto) 0.9, Eos # (Auto) 0.0, Baso # (Auto) 0.0, Immature Gran # (Auto) 0.4 08/08/20 04:23: PT 18.0 H, INR 1.69 08/07/20 05:11: Lactate Dehydrogenase 209 08/06/20 04:35: Lactate Dehydrogenase 175 ASSESSMENT: Please see below. 1. Bilateral COVID pneumonia 2. Generalized weakness. 3. Atrial fibrillation PLAN: 1. Discharge home 2. Keflex 500mg BID for 5 days 3. Prednisone 10mg BID for 5 days 4. Resume Coumadin 5. Continue Symbicort inhaler BID until it runs out 6. Followup in office next week. Plan and coordination of the patient's care discussed in the presence of Riprap Placer and nurse. SCRIBED BY: Henrietta ZIMMERMAN scribed while in presence of service performed by Dr. Henley/Magdalena Velasco APRN on 08/08/20 (0801)
[2020-08-08] MEDS: COZAAR PO SCH (09:17)
[2020-08-08] MEDS: VITAMIN D PO SCH (09:17)
[2020-08-08] MEDS: BETAPACE PO SCH (09:17)
[2020-08-08] MEDS: PREDNISONE PO SCH (09:18)
[2020-08-08] MEDS: SYMBICORT 160-4.5 MCG INHALER IH SCH (09:18)
[2020-08-08] MEDS: ZINC-220 PO SCH (09:18)
[2020-08-08] MEDS: NORVASC PO SCH (09:18)
--- NOTE | 2020-08-08 10:05 | CM.DICTOOL ---
ADMISSION: 07/29/20 13:43 DISCHARGE: AUGUST 08, 2020 DATE OF SERVICE: 08/08/20 FINAL DIAGNOSIS BILATERAL COVID 19 PNEUMONIA DEHYDRATION, RESOLVED GENERALIZED WEAKNESS, RESOLVING HYPERCOAGULOPATHY, RESOLVED HYPERTENSION CAD ATRIAL FIBRILLATION [employer] ANTICOAGULANT USE (COUMADIN) PERIPHERAL ARTERIAL DISEASE VITAMIN D DEFICIENCY ANEMIA DYSLIPIDEMIA CAD OSTEOARTHRITIS HYPOTHYROIDISM BREAST CANCER, RIGHT HYSTERECTOMY MASTECTOMY, RIGHT THYROIDECTOMY ECHOCARDIOGRAM (2019) LVEF 61% NORMAL LAST VITALS Temp Pulse Resp BP Pulse Ox 98.3 F 60 20 127/67 94 L 08/08/20 05:37 08/08/20 05:37 08/08/20 05:37 08/08/20 05:37 08/08/20 07:00 TAKE THESE MEDICATIONS AT HOME Alprazolam (Alprazolam 0.25 Mg Tablet) 0.25 mg PO DAILY PRN PRN Reason: Anxiety Last Admin: 08/07/20 20:14 Dose: 0.25 mg Documented by: Amlodipine Besylate (Amlodipine Besylate 5 Mg Tablet) 5 mg PO DAILY [facility] Last Admin: 08/07/20 09:03 Dose: 5 mg Documented by: Budesonide/Formoterol Fumarate (Budesonide/Formoterol Fumarate 160/4.5 Mcg Inhaler) 2 puff IH BID [facility] (CURRENT HOSPITAL ISSUED) Last Admin: 08/07/20 20:10 Dose: 2 puff Documented by: Levothyroxine Sodium (Levothyroxine Sodium 150 Mcg Tablet) 100 mcg PO QDAC [facility] Last Admin: 08/08/20 06:03 Dose: 150 mcg Documented by: Losartan Potassium (Losartan Potassium 100 Mg Tablet) 100 mg PO DAILY [facility] Last Admin: 08/07/20 09:03 Dose: 100 mg Documented by: Prednisone (Prednisone 10 Mg Tablet) 10 mg PO BIDWM [facility] (RX FOR 5 DAYS) Last Admin: 08/07/20 17:11 Dose: 10 mg Documented by: Rosuvastatin Calcium (Rosuvastatin Calcium 10 Mg Tablet) 20 mg PO SuMoThFr [facility] Last Admin: 08/07/20 09:06 Dose: 20 mg Documented by: KEFLEX 500 MG BID [facility] FOR 5 DAYS (RX FOR 5 DAYS) Sotalol HCl (Sotalol Hcl 80 Mg Tablet) 80 mg PO BID [facility] Last Admin: 08/07/20 20:09 Dose: 80 mg Documented by: Warfarin Sodium (Warfarin Sodium 2 Mg Tablet) 4 mg PO TAPIA@1700 [facility] Warfarin Sodium (Warfarin Sodium 2 Mg Tablet) 2 mg PO MOTUWETHFRSA@1700 [facility] Last Admin: 08/07/20 17:12 Dose: 2 mg Documented by: ALLERGIES codeine Adverse Reaction (Verified 07/29/20 11:35) ezetimibe [From Vytorin] Adverse Reaction (Verified 07/29/20 11:35) simvastatin [From Vytorin] Adverse Reaction (Verified 07/29/20 11:35) DISCONTINUED MEDICATIONS NONE NEW PRESCRIPTIONS: PREDNISONE 10 MG BID WITH MEALS FOR 5 DAYS KEFLEX 500 MG BID FOR 5 DAYS RX CALLED TO [email or web address] IN [place], [place] CONTINUE TO USE SYMBICORT INHALER 2 PUFFS BID (HOSPITAL SUPPLY UNTIL COMPLETED) SMOKING: NOT APPLICABLE DISEASE SPECIFIC EDUCATION: COVID 19 PNEUMONIA USE OF ORAL STEROIDS, RISK OF GI IRRITATION, BONE DEMINERALIZATION ACTIVITY; IMPORTANCE OF REST AND GOOD NUTRITION APPOINTMENT LAB REVIEW: 08/08/20 04:23 08/08/20 04:23 08/08/20 04:23: Sodium 132.2 L, Potassium 4.47, Chloride 102.5, Carbon Dioxide 28.6, Anion Gap 5.57, BUN 34.1 H, Creatinine 0.90, Estimated GFR (MDRD) 60.00, BUN/Creatinine Ratio 37.88, Glucose 109.8 H, Calcium 7.66 L, Total Bilirubin 0.45, AST 21.7, ALT 29.6, Alkaline Phosphatase 70.5, Total Protein 5.05 L, Albumin 2.79 L, Globulin 2.26, Albumin/Globulin Ratio 1.23 08/08/20 04:23: WBC 8.83, RBC 3.66 L, Hgb 11.2 L, Hct 32.0 L, MCV 87.4, MCH 30.6, MCHC 35.0, RDW Coeff of Hawa 12.4, Plt Count 303, Immature Gran % (Auto) 4.1, Neut % (Auto) 71.1, Lymph % (Auto) 14.9, [place] % (Auto) 9.7, Eos % (Auto) 0.0, Baso % (Auto) 0.2, Neut # (Auto) 6.3, Lymph # (Auto) 1.3, [place] # (Auto) 0.9, Eos # (Auto) 0.0, Baso # (Auto) 0.0, Immature Gran # (Auto) 0.4 08/08/20 04:23: PT 18.0 H, INR 1.69 08/07/20 05:11: Lactate Dehydrogenase 209 08/06/20 04:35: Lactate Dehydrogenase 175 PLAN: DISCHARGE: TO HOME DIET: REGULAR TOLERATED LIQUIDS ENCOURAGED ACTIVITY: GRADUALLY RESUME TOLERATED AVOID OVER EXERTION ALLOW FOR REST PERIODS SEVERAL TIMES A DAY AN APPOINTMENT IS SCHEDULED WITH DR. 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 SHE LIVES AT HOME WITH HER SPOUSE, ADOPTED GRANDDAUGHTER AND HER FAMILY. SHE IS AGREEABLE TO PLANS FOR DISCHARGE HOME TODAY. MRS. GREGORIO CARES FOR HER , BUT RECEIVES HELP FROM HER GRANDDAUGHTER. MRS. GREGORIO IS INDEPENDENT WITH ALL ACTIVITIES OF DAILY LIVING. SHE IS AMBULATORY IN THE ROOM, AND IN THE HALLWAYS WITHOUT USE OF ASSISTIVE DEVICE OR STAFF ASSISTANCE. HER GAIT IS NOTED TO BE STEADY. MEAL INTAKES ARE IMPROVING WITH INTAKES OF 50-75% NOTED. LIQUID INTAKE IS GOOD. HYDRATION STATUS HAS IMPROVED. SKIN IS INTACT. SHE IS CONTINENT OF BOWEL AND BLADDER. LAST BOWEL MOVEMENT NOTED ON THE . MD JOSH MONROY APRN ALY HANNAN, APRN
[2020-08-08] MEDS ORDERED: KEFLEX PO ONE (10:20)
--- NOTE | 2020-08-08 13:48 | PN ---
DATE OF SERVICE: 08/06/2020 SUBJECTIVE: 84 year old white female hospitalized with COVID 19 pneumonia. The patient clinically is improving. She says that she is feeling a lot better but gets fatigued and tired. REVIEW OF SYSTEMS: CONSTITUTIONAL: No night sweats. No fatigue, malaise, lethargy. No fever or chills. HEENT: Eyes: No visual changes. No eye pain. No eye discharge. ENT: No runny nose. No epistaxis. No sinus pain. No sore throat. No odynophagia. No congestion. RESPIRATORY: No cough, no congestion. No hemoptysis. Shortness of breath on exertion but she is able to walk. She was walking outside last night. She is going to walk more after her lunch. CARDIOVASCULAR: No angina symptoms. No CHF symptoms. No atypical chest pain for CAD. No palpitations. No PND. No orthopnea. GASTROINTESTINAL: No abdominal pain. No nausea or vomiting. No diarrhea or constipation. No hematemesis. No hematochezia. GENITOURINARY: No urgency. No frequency. No dysuria. No hematuria. No obstructive symptoms. No discharge. No pain. No significant abnormal bleeding. MUSCULOSKELETAL: No musculoskeletal pain; no joint swelling. NEUROLOGICAL: No headache. No neck pain. No syncope. No seizures. No dizziness. PSYCHIATRIC: Not anxious. No depression. No suicidal thoughts. No homicidal thoughts. SKIN: No rash. No lesions. No wounds. ENDOCRINE: No unexplained weight loss. No weight gain. HEMATOLOGIC/LYMPHATIC: No anemia. No purpura. No petechiae. No prolonged or excessive bleeding. No palpable lymph nodes. PHYSICAL EXAMINATION: VITAL SIGNS: Temperature 97.8, pulse 58, respiratory rate 16, blood pressure 145/70 and pulse ox 97% HEENT: Head normocephalic, atraumatic. Eyes: Extraocular muscles are intact. Pupils are equal, round and reactive to light and accommodation. Ears: No lesions. Nose appeared normal. Throat: No exudate or erythema. NECK: Supple. No JVD, no carotid bruit. No lymphadenopathy or thyromegaly. LUNGS: Decreased breath sound but clear to auscultation. Percussion note normal. Chest symmetrical. HEART: S1, S2, no S3. No murmurs. No cyanosis or clubbing. No ascites. Pulses: Dorsalis pedis and posterior tibial pulses +1 to +2 bilaterally. ABDOMEN: Soft. Nontender. Bowel sounds active. No CVA tenderness. No mass felt. EXTREMITIES: No edema. Full range of motion of all extremities, equal. NEUROLOGIC: No focal deficit. Cranial nerves II through XII are grossly intact. No headache. No double vision. SKIN: Not dry. Intact. Turgor - normal. LYMPHATIC: No palpable lymph nodes/no lymphedema. MUSCULOSKELETAL: Normal joints with no swelling. Muscle tone is normal. LABS: hgb 12, hct 35, WBC 7,400 normal differential, creatinine 0.8, BUN 29, potassium 4.3. ASSESSMENT: 1. COVID 19 pneumonia seems to be resolving, clinically. PLAN: 1. Continue antibiotics, steroids and NEBS 2. Cardiovascular status is stable. 3. Respiratory status is stable. TIME SPENT: More than 30 minutes. Plan and coordination of the patient's care discussed in the presence of nurse. RYLIE
--- NOTE | 2020-08-09 09:16 | DS ---
DATE OF SERVICE: 08/08/2020 FINAL DIAGNOSIS: BILATERAL COVID 19 PNEUMONIA DEHYDRATION, RESOLVED GENERALIZED WEAKNESS, RESOLVING HYPERCOAGULOPATHY, RESOLVED HYPERTENSION CAD ATRIAL FIBRILLATION SN[facility] ANTICOAGULANT USE (COUMADIN) PERIPHERAL ARTERIAL DISEASE VITAMIN D DEFICIENCY ANEMIA DYSLIPIDEMIA CAD OSTEOARTHRITIS HYPOTHYROIDISM BREAST CANCER, RIGHT HYSTERECTOMY MASTECTOMY, RIGHT THYROIDECTOMY ECHOCARDIOGRAM (2019) LVEF 61% NORMAL LAST VITALS: Temp Pulse Resp BP Pulse Ox 98.3 F 60 20 127/67 94 L 08/08/20 05:37 08/08/20 05:37 08/08/20 05:37 08/08/20 05:37 08/08/20 07:00 DISCHARGE INSTRUCTIONS: DISCHARGE: TO HOME. AN APPOINTMENT IS SCHEDULED WITH DR. HENLEY/JOSH GAMEZ APRN/ANITA SCHMIDT APRN ON August AT 11:15 AM. CODE STATUS: FULL CODE. TAKE THESE MEDICATIONS AT HOME Alprazolam (Alprazolam 0.25 Mg Tablet) 0.25 mg PO DAILY PRN PRN Reason: Anxiety Last Admin: 08/07/20 20:14 Dose: 0.25 mg Documented by: Amlodipine Besylate (Amlodipine Besylate 5 Mg Tablet) 5 mg PO DAILY [facility] Last Admin: 08/07/20 09:03 Dose: 5 mg Documented by: Budesonide/Formoterol Fumarate (Budesonide/Formoterol Fumarate 160/4.5 Mcg Inhaler) 2 puff IH BID [facility]) Last Admin: 08/07/20 20:10 Dose: 2 puff Documented by: Levothyroxine Sodium (Levothyroxine Sodium 150 Mcg Tablet) 100 mcg PO QDAC [facility] Last Admin: 08/08/20 06:03 Dose: 150 mcg Documented by: Losartan Potassium (Losartan Potassium 100 Mg Tablet) 100 mg PO DAILY [facility] Last Admin: 08/07/20 09:03 Dose: 100 mg Documented by: Prednisone (Prednisone 10 Mg Tablet) 10 mg PO BIDWM [facility] (RX FOR 5 DAYS) Last Admin: 08/07/20 17:11 Dose: 10 mg Documented by: Rosuvastatin Calcium (Rosuvastatin Calcium 10 Mg Tablet) 20 mg PO SuMoThFr [facility] Last Admin: 08/07/20 09:06 Dose: 20 mg Documented by: KEFLEX 500 MG BID [facility] (RX FOR 5 DAYS) Sotalol HCl (Sotalol Hcl 80 Mg Tablet) 80 mg PO BID [facility] Last Admin: 08/07/20 20:09 Dose: 80 mg Documented by: Warfarin Sodium (Warfarin Sodium 2 Mg Tablet) 4 mg PO TAPIA@1700 [facility] Warfarin Sodium (Warfarin Sodium 2 Mg Tablet) 2 mg PO MOTUWETHFRSA@1700 [facility] Last Admin: 08/07/20 17:12 Dose: 2 mg Documented by: ALLERGIES: codeine Adverse Reaction (Verified 07/29/20 11:35) ezetimibe [From Vytorin] Adverse Reaction (Verified 07/29/20 11:35) simvastatin [From Vytorin] Adverse Reaction (Verified 07/29/20 11:35) DISCONTINUED MEDICATIONS: NONE NEW PRESCRIPTIONS: PREDNISONE 10 MG BID WITH MEALS FOR 5 DAYS KEFLEX 500 MG BID FOR 5 DAYS RX CALLED TO [facility] IN [place], [place] CONTINUE TO USE SYMBICORT INHALER 2 PUFFS BID (HOSPITAL SUPPLY UNTIL COMPLETED) SMOKING: NOT APPLICABLE DISEASE SPECIFIC EDUCATION: COVID 19 PNEUMONIA USE OF ORAL STEROIDS, RISK OF GI IRRITATION, BONE DEMINERALIZATION ACTIVITY; IMPORTANCE OF REST AND GOOD NUTRITION APPOINTMENT LAB REVIEW: 08/08/20 04:23 08/08/20 04:23 08/08/20 04:23: Sodium 132.2 L, Potassium 4.47, Chloride 102.5, Carbon Dioxide 28.6, Anion Gap 5.57, BUN 34.1 H, Creatinine 0.90, Estimated GFR (MDRD) 60.00, BUN/Creatinine Ratio 37.88, Glucose 109.8 H, Calcium 7.66 L, Total Bilirubin 0.45, AST 21.7, ALT 29.6, Alkaline Phosphatase 70.5, Total Protein 5.05 L, Albumin 2.79 L, Globulin 2.26, Albumin/Globulin Ratio 1.23 08/08/20 04:23: WBC 8.83, RBC 3.66 L, Hgb 11.2 L, Hct 32.0 L, MCV 87.4, MCH 30.6, MCHC 35.0, RDW Coeff of [place]a 12.4, Plt Count 303, Immature Gran % (Auto) 4.1, Neut % (Auto) 71.1, Lymph % (Auto) 14.9, [place] % (Auto) 9.7, Eos % (Auto) 0.0, Baso % (Auto) 0.2, Neut # (Auto) 6.3, Lymph # (Auto) 1.3, [place] # (Auto) 0.9, Eos # (Auto) 0.0, Baso # (Auto) 0.0, Immature Gran # (Auto) 0.4 08/08/20 04:23: PT 18.0 H, INR 1.69 08/07/20 05:11: Lactate Dehydrogenase 209 08/06/20 04:35: Lactate Dehydrogenase 175 DIET: REGULAR TOLERATED LIQUIDS ENCOURAGED ACTIVITY: GRADUALLY RESUME TOLERATED AVOID OVER EXERTION ALLOW FOR REST PERIODS SEVERAL TIMES A DAY HOSPITAL COURSE: The patient was admitted 07/29/2020 initially to the hospitalist service. She came in through the ER with weakness and fatigue she had been experiencing for approximately one week. Chest x-ray showed pneumonia. Respiratory panel is positive for COVID. Kidney function was slightly elevated. ABG revealed pO2 53. She was admitted for bilateral COVID pneumonia and placed in the unit. She was started on Rocephin and Decadron. We took over from the hospitalist service on day 3. The hospitalist service had done a CAT scan that showed bilateral multifocal pneumonia consistent with COVID pneumonia. Kidney function was slightly elevated. She received 1 liter of normal saline which improved her kidney function. She was initially started on Remdesivir by the hospitalist service. She was already on Coumadin due to history of atrial fibrillation. Once started on the Remdesivir her INR went up to 5.9 so the Remdesivir was discontinued after day three as it was contributing to hypercoagulation. Her Coumadin was held till her INR was less than 2. This has been successfully restarted since then. Over the weekend she was moved out to the floor as she had passed her isolation period. She initially again was on oxygen around 2 liters stating 94-97%. She has not been on oxygen for about the past 48 hours. Repeat chest x-ray was done on day 5 which showed slight improvement in pneumonia as she has been up and about walking around. She did have a significant decrease in appetite initially during her hospital stay which has dramatically increased. She is eating better. We did start her on Decadron 6mg IM daily along with Vitamin D, Zinc and Pepcid. These will be discontinued. We also started her on Symbicort inhaler and she will go home with the Symbicort inhaler BID until it runs out. She will also go home with Keflex 500mg BID for the next 5 days along with Prednisone 10mg BID for the next 5 days. Again, She has been doing well. She does not need oxygen at home. She will followup next week in the office. TIME SPENT: More than 60 minutes. RYLIE
--- NOTE | 2020-08-09 13:03 | PN ---
DATE OF SERVICE: 08/07/2020 SUBJECTIVE: The patient was seen and examined with the Nurse Practitioner. The patient is gaining strength. Condition is improving. Cardiovascular and respiratory status stable. TIME SPENT: More than 30 minutes. Plan and coordination of the patient's care discussed in the presence of nurse. RYLIE
--- NOTE | 2020-08-09 13:47 | PN ---
DATE OF SERVICE: 08/08/2020 SUBJECTIVE: The patient was seen and examined with the Nurse Practitioner. The patient's condition has improved remarkably. Her appetite has improved. She is up and about without any help. Musculoskeletal and respiratory status is stable. Oxygen saturation 94% on room air. Condition is stable. TIME SPENT: More than 30 minutes. Plan and coordination of the patient's care discussed in the presence of nurse. RYLIE
[2020-08-13] MEDS ORDERED: COUMADIN PO SCH (17:00)
== END 2020-08-08 11:37 | disposition home or self-care (01) | DRG 195 ==
LOC: SCU 11:20 → ED 11:20 → OBSVTOIN 14:57 → SCU 15:54 → MEDSURG A 08-04 12:11
PROVIDERS: ADMIT Internal Medicine; ATTEND Internal Medicine
DX: J18.9 Pneumonia, unspecified organism; E55.9 Vitamin D deficiency, unspecified; I10 Essential (primary) hypertension; E78.5 Hyperlipidemia, unspecified; I48.91 Unspecified atrial fibrillation; M19.90 Unspecified osteoarthritis, unspecified site; Z79.01 Long term (current) use of anticoagulants; I25.10 Atherosclerotic heart disease of native coronary artery without angina pectoris; R53.1 Weakness; E86.0 Dehydration; D64.9 Anemia, unspecified; I73.9 Peripheral vascular disease, unspecified